=== PATIENT | male | born 1930 ===

== ENCOUNTER 2016-12-31 14:12 | Inpatient (IN) | payer MEDICARE, OTHER ==
--- NOTE | 2016-12-31 14:44 | ED PDOC ---
Lower Extremity Pain/Injury Time Seen by Provider: 12/31/16 14:21 Chief Complaint (Nursing): Lower Extremity Problem/Injury Chief Complaint (Provider): Left foot pain History Per: Family History/Exam Limitations: other (ltd history from patient due to dementia, hx provided by daughter) Onset/Duration Of Symptoms: Persistent (1 month) Current Symptoms Are (Timing): Still Present Severity: Severe Additional History Per: Family Additional Complaint(s): The pt is a 86yo male, PMHx of CAD with CABG, DM, HTN, hypercholesterolemia, dementia, peripheral vascular disease, sent to the ED by Dr. Armani Navarrete for evaluation of infection and gangrene present on left foot for the past month. Pt is accompanied by his and daughter at bedside who serve as historians. Per pt's daughter, he has had an infection leading to gangrene of his left great toe and is currently on an Augmentin regimen. Daughter denies any fever or chills, offers no additional medical complaints. State Fire Marshal: Dr. Armani Navarrete PCP: Dr. Johnson Past Medical History Reviewed: Historical Data, Nursing Documentation, Vital Signs Vital Signs: Last Vital Signs Temp 98.5 F 12/31/16 14:14 Pulse 98 H 12/31/16 14:14 Resp 20 12/31/16 14:14 BP 128/78 12/31/16 14:14 Pulse Ox 98 12/31/16 14:14 - Medical History PMH: Alzheimer's Disease, Anemia, Diabetes, HTN, Hypercholesterolemia, Malignancy (prostate cancer), Osteoporosis, Parkinson's Disease Denies: Chronic Kidney Disease - Surgical History Surgical History: CABG - Family History Family History: States: Unknown Family Hx - Living Arrangements Living Arrangements: With Family - Immunization History Hx Tetanus Toxoid Vaccination: No Hx Influenza Vaccination: No Hx Pneumococcal Vaccination: No - Home Medications Home Medications: Ambulatory Orders Medication Instructions Recorded Donepezil HCl [Aricept Odt] 10 mg PO DAILY 06/30/14 Metformin HCl [Metformin HCl] 1,000 mg PO BID 06/30/14 Sitagliptin Phosphate [Januvia] 100 mg PO DAILY 06/30/14 Metoprolol Tartrate [Lopressor] 50 mg PO DAILY #0 tab 06/14/15 Cilostazol [Pletal] 100 mg PO BID 10/07/16 Clopidogrel [Plavix] 75 mg PO DAILY 10/07/16 Valsartan [Diovan] 160 mg PO DAILY 10/07/16 glyBURIDE [Glyburide] 5 mg PO DAILY 10/07/16 Amoxicillin/Clavulanate [Augmentin 875 mg PO BID 12/31/16 875 MG-125 MG Tab] Memantine [Namenda] 28 mg PO DAILY 12/31/16 - Allergies Allergies/Adverse Reactions: Allergies Allergy/AdvReac Type Severity Reaction Status Date / Time No Known Allergies Allergy Verified 12/31/16 14:17 Review of Systems ROS Statement: Except As Marked, All Systems Reviewed And Found Negative Constitutional: Negative for: Fever, Chills Musculoskeletal: Positive for: Foot Pain (left foot infection in great toe) Physical Exam - Reviewed Nursing Documentation Reviewed: Yes Vital Signs Reviewed: Yes - Physical Exam Appears: Positive for: Well, Non-toxic, No Acute Distress Head Exam: Positive for: ATRAUMATIC, NORMAL INSPECTION, NORMOCEPHALIC Skin: Positive for: Normal Color Cardiovascular/Chest: Positive for: Regular Rate, Rhythm Respiratory: Positive for: Normal Breath Sounds. Negative for: Respiratory Distress Gastrointestinal/Abdominal: Positive for: Soft. Negative for: Tenderness Extremity: Positive for: Swelling (swelling and erythema with discharge noted around left great toe.), Other (dried gangrene in left great toe with mild foul odor.) Neurologic/Psych: Positive for: Alert, Oriented (x2) - Laboratory Results Result Diagrams: 12/31/16 15:00 12/31/16 15:00 - ECG O2 Sat by Pulse Oximetry: 98 (RA) Pulse Ox Interpretation: Normal - Physician Consult Information Time Consulting Physican Contacted: 17:00 Physician Contacted: Damian Shafer Medical Decision Making Medical Decision Making: Time: 1444 Impression: Dried gangrene of left great toe; cellulitis of left foot r/o osteomyelitis Plan: -- Podiatry consult -- CMP -- Troponin -- Blood culture -- Wound culture -- XR Left foot -- reassess Time: 1515 Podiatry resident saw pt and discussed case with Dr. Navarrete who recommends admission. Pt to be admitted under Dr. William. Will order vancomycin and zosyn. Time: [address] William who is aware. Scribe Attestation: Documented by Vivien Calvin acting as a scribe for Omega Martínez MD. Provider Attestation: All medical record entries made by the Alexandraibe were at my direction and personally dictated by me. I have reviewed the chart and agree that the record accurately reflects my personal performance of the history, physical exam, medical decision making, and the department course for this patient. I have also personally directed, reviewed, and agree with the discharge instructions and disposition. Disposition - Clinical Impression Clinical Impression: Cellulitis of foot, left, Gangrene of toe of left foot, Elevated troponin - Patient ED Disposition Is Patient to be Admitted: Yes Discussed With DrReinier: Tavares William Doctor Will See Patient In The: Hospital Counseled Patient/Family Regarding: Studies Performed, Diagnosis, Need For Followup - Disposition Disposition Time: 15:00 Condition: FAIR - Pt Status Changed To: Hospital Disposition Of: Inpatient - Admit Certification Admit to Inpatient:: After my assessment, the patient will require hospitalization for at least two midnights. This is because of the severity of symptoms shown, intensity of services needed, and/or the medical risk in this patient being treated as an outpatient. - POA Present On Arrival: Poor Glycemic Control, Pressure Ulcer
[2016-12-31] MEDS ORDERED: Piperacillin/Tazobact 3.375 GM in Sodium Chloride 0.9% 100 ML IVPB STA (15:16)
[2016-12-31 15:32] LABS: BASO % 0.4 % (0.0-2.0); EOS % 0.4 % (0.0-4.0); HEMATOCRIT 36.1 % (35.0-51.0); LYMPH # 1.3 K/uL (1.0-4.3); LYMPH % 12.2 % (20.0-40.0); MEAN CELL VOLUME 81.6 fl (80.0-94.0); MEAN CORPUSCULAR HGB CONC 31.9 g/dL (33.0-37.0); MEAN PLATELET VOLUME 8.9 fl (7.2-11.7); MONO # 0.7 K/uL (0.0-0.8); MONO % 6.2 % (0.0-10.0); NEUT # 8.9 K/uL (1.8-7.0); NEUT % 80.8 % (50.0-75.0); RED CELL DISTRIBUTION WIDTH 15.1 % (11.5-14.5)
[2016-12-31 15:36] LABS: ALKALINE PHOSPHATASE 109 U/L (38-126); ALT/SGPT 28 U/L (21-72); AST/SGOT 23 U/L (17-59); BILIRUBIN,TOTAL 0.7 mg/dl (0.2-1.3); BLOOD UREA NITROGEN 20 mg/dl (9-20); CALCIUM 9.1 mg/dL (8.4-10.2); CARBON DIOXIDE 24 mmol/L (22-30); CHLORIDE 101 mmol/L (98-107); GFR AFRICAN-AMERICAN > 60; GLUCOSE,RANDOM 179 mg/dL (75-110); POTASSIUM 4.1 MMOL/L (3.6-5.0); SODIUM 136 mmol/l (132-148); TOTAL PROTEIN 7.1 G/DL (6.3-8.2)
--- NOTE | 2016-12-31 15:53 | CP.PCM.CON ---
History of Present Illness - History of Present Illness History of Present Illness: Podiatry consult note- Dr. Navarrete 86 year old male with PMHx of DMII, PVD, HTN, hypercholesterolemia, alzheimers , malignancy, osteoporosis and parkinson's, sent to the ED from Dr. Navarrete's office for gangrenous left hallux with cellulitis. The patient recently had angioplasty done in the left leg. His hallux has been gangrenous for about the past month, patient has been taking Augmentin. Patient is accompanied by his and daughter in the ED. Past Patient History - Infectious Disease Hx of Infectious Diseases: None - Past Medical History & Family History Past Medical History?: Yes - Past Social History Smoking Status: Never Smoked - CARDIAC Hx Hypercholesterolemia: Yes Hx Hypertension: Yes - PULMONARY Hx Respiratory Disorders: No - NEUROLOGICAL Hx Alzheimer's Disease: Yes Hx Parkinson's Disease: Yes - HEENT Hx HEENT Problems: No - RENAL Hx Chronic Kidney Disease: No - ENDOCRINE/METABOLIC Hx Endocrine Disorders: Yes Hx Diabetes Mellitus Type 2: Yes - HEMATOLOGICAL/ONCOLOGICAL Hx Anemia: Yes - INTEGUMENTARY Hx Dermatological Problems: Yes (GANGRENE LEFT FOOT) - MUSCULOSKELETAL/RHEUMATOLOGICAL Hx Osteoporosis: Yes - GASTROINTESTINAL Hx Gastrointestinal Disorders: Yes HX Swallowing Problems: Yes - GENITOURINARY/GYNECOLOGICAL Hx Genitourinary Disorders: Yes Hx Prostate Cancer: Yes (states gets injections every three months) - PSYCHIATRIC Hx Psychophysiologic Disorder: No Hx Substance Use: No - SURGICAL HISTORY Hx Coronary Artery Bypass Graft: Yes - ANESTHESIA Hx Anesthesia: Yes Hx Anesthesia Reactions: No Hx Malignant Hyperthermia: No Meds Allergies/Adverse Reactions: Allergies Allergy/AdvReac Type Severity Reaction Status Date / Time No Known Allergies Allergy Verified 12/31/16 14:17 - Medications Medications: Current Medications Vancomycin HCl 1 gm/ Sodium (Chloride) 250 mls @ 166.667 mls/hr IVPB STAT STA Stop: 12/31/16 16:45 Piperacillin Sod/Tazobactam (Sod 3.375 gm/ Sodium Chloride) 100 mls @ 100 mls/ hr IVPB STAT STA Stop: 12/31/16 16:15 Physical Exam - Additional Findings Additional findings: DERMATOLOGIC: Left hallux is necrotic to the level of the MPJ, with demarcation at the joint level. There is erythema present proximal to the first MTPJ. Ulceration plantarly at the junction of necrotic and healthy skin, with mild serous drainage, there is positive malodor present. Proximal skin is intact. There is no streaking of the erythema at this time. VASCULAR: DP/PT pulses palpable, CORE OVEN TENDER<3 seconds for the lesser digits. There is edema of the left forefoot NEUROLOGIC: Gross sensation intact, protective sensation diminished ORTHOPEDIC: Minimal pain on palpation to the left hallux Results - Vital Signs Recent Vital Signs: Last Vital Signs Temp 98.5 F 12/31/16 14:14 Pulse 98 H 12/31/16 14:14 Resp 20 12/31/16 14:14 BP 128/78 12/31/16 14:14 Pulse Ox 98 12/31/16 15:21 - Labs Result Diagrams: 12/31/16 15:00 12/31/16 15:00 Assessment & Plan - Assessment and Plan (Free Text) Assessment: 86 year old male with gangrene and cellulitis of the left hallux Plan: Patient seen and evaluated, d/w attending Dr. Navarrete. Patients left hallux dressed with betadine telfa, DSD Wound culture taken X-rays ordered Pt started on IV vancomycin, Zosyn Patient to be admitted and will require left hallux amputation, medical and cardiac clearance appreciated Podiatry will continue to follow
--- NOTE | 2016-12-31 15:56 | RAD ---
Left foot History: Left toe pain. Technique: Suboptimal positioning of the patient severely limiting evaluation. Three views of the left foot. Findings: Extensive osteopenia. No definite fracture. Vascular calcifications. Mild hammertoe deformities of the 2nd through 5th digits and hallux valgus. Plantar spurs. Impression: Suboptimal imaging for subtle fractures. Other findings as above.
--- NOTE | 2016-12-31 16:09 | RAD ---
HISTORY: chest pain COMPARISON: No prior. FINDINGS: LUNGS: Increased pulmonary vascular congestion. Questionable effusion on the left. Otherwise suboptimal evaluation due to patient positioning. Left apex not imaged. PLEURA: Biapical pleural parenchymal thickening noted. CARDIOVASCULAR: Enlarged heart. OSSEOUS STRUCTURES: The osseous structures demonstrate degenerative changes. VISUALIZED UPPER ABDOMEN: Upper abdomen is suboptimally evaluated. OTHER FINDINGS: Midline sternotomy wires and surgical clips along the left heart border noted. IMPRESSION: Suboptimal evaluation. Findings as above.
[2016-12-31 16:25] LABS: PARTIAL THROMBOPLASTIN TIME 29.4 Seconds (25.6-37.1)
[2016-12-31] MEDS ORDERED: Piperacillin/Tazobact 3.375 gm Inj IVPB ONE (19:45)
[2016-12-31] MEDS ORDERED: Pneumococcal 23-Valent Vaccine IM ONE (23:42)
[2017-01-01] MEDS: Piperacillin/Tazobact 3.375 GM in Sodium Chloride 0.9% 100 ML IVPB SCH ×3 (01:41→16:09)
--- NOTE | 2017-01-01 08:19 | CP.PCM.CON ---
History of Present Illness - History of Present Illness History of Present Illness: 86 year old male with PMHx of DMII, PVD, HTN, hypercholesterolemia, alzheimers, malignancy, osteoporosis and parkinson's, sent to the ED from Dr. Navarrete's office for gangrenous left hallux with cellulitis. The patient recently had angioplasty done in the left leg. His hallux has been gangrenous for about the past month, patient has been taking Augmentin. Pt has Dementia / Hx taken from the chart He has 1 positive troponin the second is negative Most likely secondary to Gangrene EKG: normal Past Patient History - Infectious Disease Hx of Infectious Diseases: None - Past Medical History & Family History Past Medical History?: Yes - Past Social History Smoking Status: Never Smoked - CARDIAC Hx Cardiac Disorders: Yes - PULMONARY Hx Respiratory Disorders: No - NEUROLOGICAL Hx Neurological Disorder: Yes - HEENT Hx HEENT Problems: No - RENAL Hx Chronic Kidney Disease: No - ENDOCRINE/METABOLIC Hx Endocrine Disorders: Yes - HEMATOLOGICAL/ONCOLOGICAL Hx Blood Disorders: Yes - INTEGUMENTARY Hx Dermatological Problems: Yes (GANGRENE LEFT FOOT) - MUSCULOSKELETAL/RHEUMATOLOGICAL Hx Falls: No - GASTROINTESTINAL Hx Gastrointestinal Disorders: Yes HX Swallowing Problems: Yes - GENITOURINARY/GYNECOLOGICAL Hx Genitourinary Disorders: Yes - PSYCHIATRIC Hx Substance Use: No - SURGICAL HISTORY Hx Coronary Artery Bypass Graft: Yes - ANESTHESIA Hx Anesthesia: Yes Hx Anesthesia Reactions: No Hx Malignant Hyperthermia: No Meds Allergies/Adverse Reactions: Allergies Allergy/AdvReac Type Severity Reaction Status Date / Time No Known Allergies Allergy Verified 12/31/16 14:17 - Medications Medications: Current Medications Cilostazol (Pletal) 100 mg PO BID [facility] Clopidogrel Bisulfate (Plavix) 75 mg PO DAILY [facility] Donepezil HCl (Aricept Odt) 10 mg PO DAILY [facility] Enoxaparin Sodium (Lovenox) 40 mg SC DAILY [facility] PRN Reason: Protocol Glyburide (Micronase) 5 mg PO DAILY [facility] Piperacillin Sod/Tazobactam (Sod 3.375 gm/ Sodium Chloride) 100 mls @ 100 mls/ hr IVPB Q8 [facility] Last Admin: 01/01/17 01:41 Dose: 100 mls/hr Vancomycin HCl 1 gm/ Sodium (Chloride) 250 mls @ 166.667 mls/hr IVPB DAILY [facility] Memantine (Namenda) 28 mg PO DAILY [facility] Metformin HCl (Glucophage) 1,000 mg PO BID [facility] Metoprolol Tartrate (Lopressor) 50 mg PO DAILY [facility] Sitagliptin Phosphate (Januvia) 100 mg PO DAILY [facility] Valsartan (Diovan) 160 mg PO DAILY [facility] Physical Exam - Head Exam Head Exam: NORMAL INSPECTION - Eye Exam Eye Exam: Normal appearance Pupil Exam: NORMAL ACCOMODATION - ENT Exam ENT Exam: Normal Exam - Neck Exam Neck exam: Positive for: Normal Inspection - Respiratory Exam Respiratory Exam: NORMAL BREATHING PATTERN - Cardiovascular Exam Cardiovascular Exam: REGULAR RHYTHM - GI/Abdominal Exam GI & Abdominal Exam: Normal Bowel Sounds Results - Vital Signs Recent Vital Signs: Last Vital Signs Temp 97.9 F 01/01/17 07:56 Pulse 76 01/01/17 07:56 Resp 18 01/01/17 07:56 BP 111/57 L 01/01/17 07:56 Pulse Ox 97 01/01/17 07:56 - Labs Result Diagrams: 12/31/16 15:00 12/31/16 15:00 Labs: Laboratory Results - last 24 hr 12/31/16 01/01/17 23:35 05:12 POC Glucose (mg/dL) 138 H Troponin I 0.0930 Assessment & Plan (1) Elevated troponin Assessment and Plan: I feel the elevated troponin is secondary to the gangrene He is cleared for surgery Status: Acute (2) Gangrene of toe of left foot Status: Acute
[2017-01-01 08:26] LABS: HEMATOCRIT 32.8 % (35.0-51.0); MEAN CELL VOLUME 81.3 fl (80.0-94.0); MEAN CORPUSCULAR HEMOGLOBIN 26.5 pg (27.0-31.0); MEAN CORPUSCULAR HGB CONC 32.6 g/dL (33.0-37.0); RED CELL DISTRIBUTION WIDTH 15.1 % (11.5-14.5); WHITE BLOOD COUNT 9.1 K/uL (4.8-10.8)
[2017-01-01 08:29] LABS: ALB/GLOB RATIO 0.9 (1.0-2.1); ALKALINE PHOSPHATASE 86 U/L (38-126); ALT/SGPT 27 U/L (21-72); AST/SGOT 21 U/L (17-59); BILIRUBIN,TOTAL 0.7 mg/dl (0.2-1.3); BLOOD UREA NITROGEN 17 mg/dl (9-20); CALCIUM 8.3 mg/dL (8.4-10.2); CARBON DIOXIDE 24 mmol/L (22-30); CHLORIDE 105 mmol/L (98-107); CHOLESTEROL 111 mg/dL (0-199); GFR AFRICAN-AMERICAN > 60; GLUCOSE,RANDOM 123 mg/dL (75-110); POTASSIUM 3.8 MMOL/L (3.6-5.0); SODIUM 136 mmol/l (132-148); TOTAL PROTEIN 6.2 G/DL (6.3-8.2)
[2017-01-01 08:58] LABS: THYROID STIMULATING HORMONE 2.59 mIU/ML (0.46-4.68)
[2017-01-01] MEDS: Cilostazol 100 mg Tab UD PO SCH ×2 (09:16→16:09)
[2017-01-01] MEDS: Enoxaparin 40 mg Syringe SC SCH (09:16)
[2017-01-01] MEDS: Donepezil HCl 10 MG ODT PO SCH (09:18)
[2017-01-01] MEDS ORDERED: Povidone Iodine Topical 10% Sol ONE (11:57)
--- NOTE | 2017-01-01 13:24 | CP.PCM.PN ---
Subjective - Date & Time of Evaluation Date of Evaluation: 01/01/17 Time of Evaluation: 13:23 - Subjective Subjective: Patient seen and evaluated at bedside, NAD. Patient resting comfortably, no complaints at this time. Bandage is removed from the left foot. Cellulitis improved from yesterday. Objective - Vital Signs/Intake and Output Vital Signs (last 24 hours): Temp Pulse Resp BP Pulse Ox 97.8 F 54 L 18 105/57 L 98 01/01/17 12:18 01/01/17 12:18 01/01/17 12:18 01/01/17 12:18 01/01/17 12:18 - Medications Medications: Current Medications Cilostazol (Pletal) 100 mg PO BID [facility] Last Admin: 01/01/17 09:16 Dose: 100 mg Clopidogrel Bisulfate (Plavix) 75 mg PO DAILY [facility] Last Admin: 01/01/17 09:16 Dose: 75 mg Donepezil HCl (Aricept Odt) 10 mg PO DAILY [facility] Last Admin: 01/01/17 09:18 Dose: 10 mg Enoxaparin Sodium (Lovenox) 40 mg SC DAILY [facility] PRN Reason: Protocol Last Admin: 01/01/17 09:16 Dose: 40 mg Glyburide (Micronase) 5 mg PO DAILY [facility] Last Admin: 01/01/17 10:31 Dose: 5 mg Piperacillin Sod/Tazobactam (Sod 3.375 gm/ Sodium Chloride) 100 mls @ 100 mls/ hr IVPB Q8 [facility] Last Admin: 01/01/17 09:14 Dose: 100 mls/hr Vancomycin HCl 1 gm/ Sodium (Chloride) 250 mls @ 166.667 mls/hr IVPB DAILY [facility] Last Admin: 01/01/17 09:15 Dose: 166.667 mls/hr Memantine (Namenda) 28 mg PO DAILY [facility] Metformin HCl (Glucophage) 1,000 mg PO BID [facility] Last Admin: 01/01/17 09:16 Dose: 1,000 mg Metoprolol Tartrate (Lopressor) 50 mg PO DAILY [facility] Last Admin: 01/01/17 09:17 Dose: 50 mg Sitagliptin Phosphate (Januvia) 100 mg PO DAILY [facility] Last Admin: 01/01/17 09:17 Dose: 100 mg Valsartan (Diovan) 160 mg PO DAILY [facility] Last Admin: 01/01/17 09:18 Dose: 160 mg - Labs Labs: 01/01/17 06:30 01/01/17 06:30 PT 13.9 Seconds (9.8-13.1) H 12/31/16 15:00 INR 1.2 (0.9-1.2) 12/31/16 15:00 APTT 29.4 Seconds (25.6-37.1) 12/31/16 15:00 - Constitutional Appears: Well, Non-toxic, No Acute Distress - Neurological Exam Neurological Exam: Awake - Additional Findings Additional findings: DERMATOLOGIC: Left hallux is necrotic to the level of the MPJ, with demarcation at the joint level. There is decreased present proximal to the first MTPJ. Ulceration plantarly at the junction of necrotic and healthy skin, with mild serous drainage, there is positive malodor present. Proximal skin is intact. There is no streaking of the erythema at this time. VASCULAR: DP/PT pulses palpable, FIREPROOF DOOR ASSEMBLER<3 seconds for the lesser digits. There is edema of the left forefoot NEUROLOGIC: Gross sensation intact, protective sensation diminished ORTHOPEDIC: Minimal pain on palpation to the left hallux Assessment and Plan - Assessment and Plan (Free Text) Assessment: 86 year old male with left hallux gangrene and cellulitis. Plan: Patient seen and evaluated, d/w attending Dr. Navarrete. Left foot dressed with betadine adaptic, DSD Patient will go to OR for left hallux amputation later this week Will hold plavix and Lovenox prior to procedure Cardiology clearance appreciated Podiatry will continue to follow
--- NOTE | 2017-01-01 14:43 | CARD ---
APPROVED REPORT EKG Measurement Heart [id number] <Conclusion> Normal sinus rhythm Nonspecific T wave abnormality Prolonged QT Abnormal ECG
[2017-01-02] MEDS: Piperacillin/Tazobact 3.375 GM in Sodium Chloride 0.9% 100 ML IVPB SCH ×3 (00:31→16:55)
--- NOTE | 2017-01-02 06:35 | CP.PCM.PN ---
Subjective - Date & Time of Evaluation Date of Evaluation: 01/02/17 Time of Evaluation: 06:35 - Subjective Subjective: Patient seen and evaluated at bedside, NAD. Patient resting comfortably, no complaints at this time. Bandage is removed from the left foot. Cellulitis improved from yesterday. Objective - Vital Signs/Intake and Output Vital Signs (last 24 hours): Temp Pulse Resp BP Pulse Ox 99 F 72 19 122/61 99 01/02/17 04:41 01/02/17 04:41 01/02/17 04:41 01/02/17 04:41 01/02/17 04:41 Intake and Output: 01/01/17 01/02/17 18:59 06:59 Intake Total 300 Balance 300 - Medications Medications: Current Medications Cilostazol (Pletal) 100 mg PO BID [facility] Last Admin: 01/01/17 16:09 Dose: 100 mg Clopidogrel Bisulfate (Plavix) 75 mg PO DAILY [facility] Last Admin: 01/01/17 09:16 Dose: 75 mg Donepezil HCl (Aricept Odt) 10 mg PO DAILY [facility] Last Admin: 01/01/17 09:18 Dose: 10 mg Enoxaparin Sodium (Lovenox) 40 mg SC DAILY [facility] PRN Reason: Protocol Last Admin: 01/01/17 09:16 Dose: 40 mg Glyburide (Micronase) 5 mg PO DAILY [facility] Last Admin: 01/01/17 10:31 Dose: 5 mg Piperacillin Sod/Tazobactam (Sod 3.375 gm/ Sodium Chloride) 100 mls @ 100 mls/ hr IVPB Q8 [facility] Last Admin: 01/02/17 00:31 Dose: 100 mls/hr Vancomycin HCl 1 gm/ Sodium (Chloride) 250 mls @ 166.667 mls/hr IVPB DAILY [facility] Last Admin: 01/01/17 09:15 Dose: 166.667 mls/hr Memantine (Namenda) 28 mg PO DAILY [facility] Metformin HCl (Glucophage) 1,000 mg PO BID [facility] Last Admin: 01/01/17 16:09 Dose: 1,000 mg Metoprolol Tartrate (Lopressor) 50 mg PO DAILY [facility] Last Admin: 01/01/17 09:17 Dose: 50 mg Sitagliptin Phosphate (Januvia) 100 mg PO DAILY [facility] Last Admin: 06/04/17 09:17 Dose: 100 mg Valsartan (Diovan) 160 mg PO DAILY [facility] Last Admin: 01/01/17 09:18 Dose: 160 mg - Labs Labs: 01/01/17 06:30 01/01/17 06:30 PT 13.9 Seconds (9.8-13.1) H 12/31/16 15:00 INR 1.2 (0.9-1.2) 12/31/16 15:00 APTT 29.4 Seconds (25.6-37.1) 12/31/16 15:00 - Constitutional Appears: Well, Non-toxic, No Acute Distress - Extremities Exam Additional comments: DERMATOLOGIC: Left hallux is necrotic to the level of the MPJ, with demarcation at the joint level. There is decreased present proximal to the first MTPJ. Ulceration plantarly at the junction of necrotic and healthy skin, with mild serous drainage, there is positive malodor present. Proximal skin is intact. There is no streaking of the erythema at this time. VASCULAR: DP/PT pulses palpable, METAL CHECKER<3 seconds for the lesser digits. There is edema of the left forefoot NEUROLOGIC: Gross sensation intact, protective sensation diminished ORTHOPEDIC: Minimal pain on palpation to the left hallux - Neurological Exam Neurological Exam: Alert, Awake, Oriented x3 - Psychiatric Exam Psychiatric exam: Normal Affect, Normal Mood Assessment and Plan - Assessment and Plan (Free Text) Assessment: 86 year old male with left hallux gangrene and cellulitis. Plan: Patient seen and evaluated, seen with attending Dr. Navarrete. Left foot dressed with DSD Patient will go to OR for left hallux amputation later this week hold plavix and Lovenox prior to procedure Cardiology clearance appreciated Podiatry will continue to follow
[2017-01-02] MEDS: Cilostazol 100 mg Tab UD PO SCH ×2 (09:21→16:53)
[2017-01-02] MEDS: Donepezil HCl 10 MG ODT PO SCH (09:22)
--- NOTE | 2017-01-02 11:22 | CP.PCM.CON ---
History of Present Illness - History of Present Illness History of Present Illness: 86 year old male with PMHx of DMII, PVD, HTN, hypercholesterolemia, alzheimers , malignancy, osteoporosis and parkinson's, sent to the ED from Dr. Navarrete's office for gangrenous left hallux with cellulitis. The patient recently had angioplasty done in the left leg. His hallux has been gangrenous for about the past month, patient has been taking Augmentin. Patient is accompanied by his and daughter in the ED. left hallux black some cellulitis of forefoot alert but confused nad Review of Systems - Review of Systems Systems not reviewed;Unavailable: Altered Mental Status - Constitutional Constitutional: absent: As Per HPI, Anorexia, Chills, Daytime Sleepiness, Excessive Sweating, Fatigue, Fever, Frequent Falls, Headache, Increased Appetite , Lethargy, Malaise, Night Sweats, Snoring, Sleep Apnea, Weight Gain, Weight Loss, Weakness, Other - EENT Eyes: absent: As Per HPI, Blind Spots, Blurred Vision, Change in Vision, Decreased Night Vision, Diplopia, Discharge, Dry Eye, Exophthalmos, Floaters, Irritation, Itchy Eyes, Loss of Peripheral Vision, Pain, Photophobia, Requires Corrective Lenses, Sees Flashes, Spots in Vision, Tunnel Vision, Other Visual Disturbances, Loss of Vision, Other Ears: absent: As Per HPI, Decreased Hearing, Ear Discharge, Ear Pain, Tinnitus, Abnormal Hearing, Disequilibrium, Dizziness, Other Nose/Mouth/Throat: absent: As Per HPI, Epistaxis, Nasal Congestion, Nasal Discharge, Nasal Obstruction, Nasal Trauma, Nose Pain, Post Nasal Drip, Sinus Pain, Sinus Pressure, Bleeding Gums, Change in Voice, Dental Pain, Dry Mouth, Dysphagia, Halitosis, Hoarsness, Lip Swelling, Mouth Lesions, Mouth Pain, Odynophagia, Sore Throat, Throat Swelling, Tongue Swelling, Facial Pain, Neck Pain, Neck Mass, Other - Cardiovascular Cardiovascular: absent: As Per HPI, Acrocyanosis, Chest Pain, Chest Pain at Rest , Chest Pain with Activity, Claudication, Diaphoresis, Dyspnea, Dyspnea on Exertion, Edema, Irregular Heart Rhythm, Pain Radiating to Arm/Neck/Jaw, Leg Edema, Leg Ulcers, Lightheadedness, Orthopnea, Palpitations, Paroxysmal Nocturnal Dyspnea, Pedal Edema, Radiating Pain, Rapid Heart Rate, Slow Heart Rate, Syncope, Other - Respiratory Respiratory: absent: As Per HPI, Cough, Dyspnea, Hemoptysis, Dyspnea on Exertion , Wheezing, Snoring, Stridor, Pain on Inspiration, Chest Congestion, Excessive Mucous Production, Change in Mucous Color, Pain with Coughing, Other - Gastrointestinal Gastrointestinal: absent: As Per HPI, Abdominal Pain, Belching, Bloating, Change in Bowel Habits, Change in Stool Character, Coffee Ground Emesis, Constipation, Cramping, Diarrhea, Dyspepsia, Dysphagia, Early Satiety, Excessive Flatus, Fecal Incontinence, Heartburn, Hematemesis, Hematochezia, Loose Stools, Melena, Nausea, Odynophagia, Temesmus, Vomiting, Other - Genitourinary Genitourinary: absent: As Per HPI, Change in Urinary Stream, Difficulty Urinating, Dysuria, Flank Pain, Hematuria, Pyuria, Nocturia, Urinary Incontinence, Urinary Frequency, Urinary Hesitance, Urinary Urgency, Voiding Freq/Small Amts, Freq UTI, Hx Renal/Bladder Calculi, Hx /Renal Surgery, Bladder Distension, Other - Reproductive: Male Reproductive:Male: As Per HPI - Musculoskeletal Musculoskeletal: As Per HPI - Integumentary Integumentary: As Per HPI - Neurological Neurological: absent: As Per HPI, Abnormal Gait, Abnormal Hearing, Abnormal Movements, Abnormal Speech, Behavioral Changes, Burning Sensations, Confusion, Convulsions, Disequilibrium, Dizziness, Numbness, Focal Weakness, Frequent Falls , Headaches, Lack of Coordination, Loss of Vision, Memory Loss, Paresthesias, Radicular Pain, Restless Legs, Sensory Deficit, Syncope, Tingling, Tremor, Vertigo, Weakness, Other Visual Disturbances, Other - Psychiatric Psychiatric: absent: As Per HPI, Abnormal Sleep Pattern, Anhedonia, Anxiety, Auditory Hallucinations, Behavioral Changes, Change in Appetite, Change in Libido, Confusion, Depression, Difficulty Concentrating, Hallucinations, Homicidal Ideation, Hopelessness, Irritability, Memory Loss, Mood Swings, Panic Attacks, Paranoia, Suicidal Ideation, Visual Hallucinations, Tactile Hallucinations, Other - Endocrine Endocrine: absent: As Per HPI, Change in Body Appearance, Change in Libido, Cold Intolorance, Deepening of Voice, Excessive Sweating, Fatigue, Flushing, Heat Intolorance, Increase in Ring/Shoe/Hat Size, Palpitations, Polydipsia, Polyphagia, Polyuria, Other - Hematologic/Lymphatic Hematologic: absent: As Per HPI, Easy Bleeding, Easy Bruising, Lymphadenopathy, Other Past Patient History - Infectious Disease Hx of Infectious Diseases: None - Past Medical History & Family History Past Medical History?: Yes - Past Social History Smoking Status: Never Smoked - CARDIAC Hx Cardiac Disorders: Yes - PULMONARY Hx Respiratory Disorders: No - NEUROLOGICAL Hx Neurological Disorder: Yes - HEENT Hx HEENT Problems: No - RENAL Hx Chronic Kidney Disease: No - ENDOCRINE/METABOLIC Hx Endocrine Disorders: Yes - HEMATOLOGICAL/ONCOLOGICAL Hx Blood Disorders: Yes - INTEGUMENTARY Hx Dermatological Problems: Yes (GANGRENE LEFT FOOT) - MUSCULOSKELETAL/RHEUMATOLOGICAL Hx Falls: No - GASTROINTESTINAL Hx Gastrointestinal Disorders: Yes HX Swallowing Problems: Yes - GENITOURINARY/GYNECOLOGICAL Hx Genitourinary Disorders: Yes - PSYCHIATRIC Hx Substance Use: No - SURGICAL HISTORY Hx Coronary Artery Bypass Graft: Yes - ANESTHESIA Hx Anesthesia: Yes Hx Anesthesia Reactions: No Hx Malignant Hyperthermia: No Meds Allergies/Adverse Reactions: Allergies Allergy/AdvReac Type Severity Reaction Status Date / Time No Known Allergies Allergy Verified 12/31/16 14:17 - Medications Medications: Current Medications Acetaminophen (Tylenol 325mg Tab) 650 mg PO Q6 PRN PRN Reason: Pain, Mild (1-3) Last Admin: 01/02/17 10:12 Dose: 650 mg Cilostazol (Pletal) 100 mg PO BID [facility] Last Admin: 01/02/17 09:21 Dose: 100 mg Clopidogrel Bisulfate (Plavix) 75 mg PO DAILY [facility] Last Admin: 01/01/17 09:16 Dose: 75 mg Donepezil HCl (Aricept Odt) 10 mg PO DAILY [facility] Last Admin: 01/02/17 09:22 Dose: 10 mg Enoxaparin Sodium (Lovenox) 40 mg SC DAILY [facility] PRN Reason: Protocol Last Admin: 01/01/17 09:16 Dose: 40 mg Glyburide (Micronase) 5 mg PO DAILY [facility] Last Admin: 01/02/17 09:22 Dose: 5 mg Piperacillin Sod/Tazobactam (Sod 3.375 gm/ Sodium Chloride) 100 mls @ 100 mls/ hr IVPB Q8 [facility] Last Admin: 01/02/17 09:23 Dose: 100 mls/hr Vancomycin HCl 1 gm/ Sodium (Chloride) 250 mls @ 166.667 mls/hr IVPB DAILY [facility] Last Admin: 01/02/17 09:23 Dose: 166.667 mls/hr Memantine (Namenda) 10 mg PO BID [facility] Last Admin: 01/02/17 10:13 Dose: 10 mg Metformin HCl (Glucophage) 1,000 mg PO BID [facility] Last Admin: 01/02/17 09:21 Dose: 1,000 mg Metoprolol Tartrate (Lopressor) 50 mg PO DAILY [facility] Last Admin: 01/02/17 09:38 Dose: 50 mg Sitagliptin Phosphate (Januvia) 100 mg PO DAILY [facility] Last Admin: 01/02/17 09:21 Dose: 100 mg Valsartan (Diovan) 160 mg PO DAILY [facility] Last Admin: 01/02/17 09:21 Dose: 160 mg Physical Exam - Constitutional Appears: Non-toxic, Confused, Cachectic, Chronically Ill - Head Exam Head Exam: NORMOCEPHALIC - Eye Exam Eye Exam: PERRL. absent: Scleral icterus - ENT Exam ENT Exam: Mucous Membranes Dry, Normal External Ear Exam - Neck Exam Neck exam: Negative for: Lymphadenopathy - Respiratory Exam Respiratory Exam: Decreased Breath Sounds, Rhonchi - Cardiovascular Exam Cardiovascular Exam: REGULAR RHYTHM, +S1, +S2 - GI/Abdominal Exam GI & Abdominal Exam: Diminished Bowel Sounds, Soft. absent: Tenderness - Rectal Exam Rectal Exam: Deferred - Exam Exam: NORMAL INSPECTION - Extremities Exam Extremities exam: Positive for: pedal edema, tenderness. Negative for: calf tenderness, pedal pulses present - Back Exam Back exam: absent: CVA tenderness (L), CVA tenderness (R) - Neurological Exam Neurological exam: Altered, CN II-XII Intact - Psychiatric Exam Psychiatric exam: Depressed - Skin Skin Exam: Dry Results - Vital Signs Recent Vital Signs: Last Vital Signs Temp 97.3 F L 01/02/17 08:01 Pulse 92 H 01/02/17 09:38 Resp 16 01/02/17 08:01 BP 126/63 01/02/17 09:38 Pulse Ox 98 01/02/17 08:01 - Labs Result Diagrams: 01/01/17 06:30 01/01/17 06:30 Labs: Laboratory Results - last 24 hr 01/01/17 01/01/17 01/01/17 06:30 11:15 16:05 POC Glucose (mg/dL) 176 H 105 Hemoglobin A1c 6.5 01/01/17 01/02/17 21:10 05:07 POC Glucose (mg/dL) 104 83 Hemoglobin A1c Assessment & Plan - Assessment and Plan (Free Text) Plan: dry gangrene secondary cellulitis need vascular follow up may need BKA ? cont iv rx
--- NOTE | 2017-01-02 12:53 | CP.PCM.HP ---
History of Present Illness - History of Present Illness History of Present Illness: This is an 86 y/o male with dementia , HTN, DM 2 osteoporosis was admitted for gangrene and cellulitis of the left hallux. he has been on Augmentin for awhile but to no avail. He was seen at the [facility] office and advised hospitalization he recently had an angioplasty of the left leg. there was no fever. Present on Admission - Present on Admission Any Indicators Present on Admission: No History of DVT/PE: No History of Uncontrolled Diabetes: Yes Urinary Catheter: No Decubitus Ulcer Present: No Review of Systems - Musculoskeletal Additional comments: pain on the right foot. Past Patient History - Infectious Disease Hx of Infectious Diseases: None - Past Medical History & Family History Past Medical History?: Yes - Past Social History Smoking Status: Never Smoked - CARDIAC Hx Cardiac Disorders: Yes - PULMONARY Hx Respiratory Disorders: No - NEUROLOGICAL Hx Neurological Disorder: Yes - HEENT Hx HEENT Problems: No - RENAL Hx Chronic Kidney Disease: No - ENDOCRINE/METABOLIC Hx Endocrine Disorders: Yes - HEMATOLOGICAL/ONCOLOGICAL Hx Blood Disorders: Yes - INTEGUMENTARY Hx Dermatological Problems: Yes (GANGRENE LEFT FOOT) - MUSCULOSKELETAL/RHEUMATOLOGICAL Hx Falls: No - GASTROINTESTINAL Hx Gastrointestinal Disorders: Yes HX Swallowing Problems: Yes - GENITOURINARY/GYNECOLOGICAL Hx Genitourinary Disorders: Yes - PSYCHIATRIC Hx Substance Use: No - SURGICAL HISTORY Hx Coronary Artery Bypass Graft: Yes - ANESTHESIA Hx Anesthesia: Yes Hx Anesthesia Reactions: No Hx Malignant Hyperthermia: No Meds Allergies/Adverse Reactions: Allergies Allergy/AdvReac Type Severity Reaction Status Date / Time No Known Allergies Allergy Verified 12/31/16 14:17 Physical Exam - Head Exam Head Exam: NORMAL INSPECTION - Eye Exam Eye Exam: Normal appearance - ENT Exam ENT Exam: Mucous Membranes Moist - Respiratory Exam Respiratory Exam: Clear to Auscultation Bilateral - Cardiovascular Exam Cardiovascular Exam: REGULAR RHYTHM - Extremities Exam Additional comments: gangrene of the left hallux - Neurological Exam Neurological exam: Altered, CN II-XII Intact - Skin Skin Exam: Dry Results - Vital Signs Recent Vital Signs: Last Vital Signs Temp 96.4 F L 01/02/17 12:38 Pulse 64 01/02/17 12:38 Resp 18 01/02/17 12:38 BP 101/39 L 01/02/17 12:38 Pulse Ox 97 01/02/17 12:38 - Labs Result Diagrams: 01/01/17 06:30 01/01/17 06:30 Labs: Laboratory Results - last 24 hr 01/01/17 01/01/17 01/01/17 06:30 16:05 21:10 POC Glucose (mg/dL) 105 104 Hemoglobin A1c 6.5 01/02/17 01/02/17 05:07 11:03 POC Glucose (mg/dL) 83 87 Hemoglobin A1c Assessment & Plan (1) Coronary artery disease Status: Acute (2) Cellulitis of foot, left Status: Acute (3) Gangrene of toe of left foot Status: Acute (4) Dementia Status: Chronic (5) Diabetes mellitus Status: Chronic - Assessment and Plan (Free Text) Plan: cont meds follow up with Cardiology re elevated CE reviewed labs Dc Plavix will be off for few days from Plavix before surgery
--- NOTE | 2017-01-02 12:59 | CP.PCM.PN ---
Subjective - Date & Time of Evaluation Date of Evaluation: 01/02/17 Time of Evaluation: 12:59 - Subjective Subjective: patient remains stable On his 2nd day off from Plavix. Has no chest s pain or SOB. Objective - Vital Signs/Intake and Output Vital Signs (last 24 hours): Temp Pulse Resp BP Pulse Ox 96.4 F L 64 18 101/39 L 97 01/02/17 12:38 01/02/17 12:38 01/02/17 12:38 01/02/17 12:38 01/02/17 12:38 Intake and Output: 01/02/17 01/02/17 06:59 18:59 Intake Total 100 Output Total 2 Balance 98 - Medications Medications: Current Medications Acetaminophen (Tylenol 325mg Tab) 650 mg PO Q6 PRN PRN Reason: Pain, Mild (1-3) Last Admin: 01/02/17 10:12 Dose: 650 mg Cilostazol (Pletal) 100 mg PO BID [facility] Last Admin: 01/02/17 09:21 Dose: 100 mg Clopidogrel Bisulfate (Plavix) 75 mg PO DAILY [facility] Last Admin: 01/01/17 09:16 Dose: 75 mg Donepezil HCl (Aricept Odt) 10 mg PO DAILY [facility] Last Admin: 01/02/17 09:22 Dose: 10 mg Enoxaparin Sodium (Lovenox) 40 mg SC DAILY [facility] PRN Reason: Protocol Last Admin: 01/01/17 09:16 Dose: 40 mg Glyburide (Micronase) 5 mg PO DAILY [facility] Last Admin: 01/02/17 09:22 Dose: 5 mg Piperacillin Sod/Tazobactam (Sod 3.375 gm/ Sodium Chloride) 100 mls @ 100 mls/ hr IVPB Q8 [facility] Last Admin: 01/02/17 09:23 Dose: 100 mls/hr Vancomycin HCl 1 gm/ Sodium (Chloride) 250 mls @ 166.667 mls/hr IVPB DAILY [facility] Last Admin: 01/02/17 09:23 Dose: 166.667 mls/hr Memantine (Namenda) 10 mg PO BID [facility] Last Admin: 01/02/17 10:13 Dose: 10 mg Metformin HCl (Glucophage) 1,000 mg PO BID [facility] Last Admin: 01/02/17 09:21 Dose: 1,000 mg Metoprolol Tartrate (Lopressor) 50 mg PO DAILY [facility] Last Admin: 01/02/17 09:38 Dose: 50 mg Sitagliptin Phosphate (Januvia) 100 mg PO DAILY [facility] Last Admin: 01/02/17 09:21 Dose: 100 mg Valsartan (Diovan) 160 mg PO DAILY [facility] Last Admin: 01/02/17 09:21 Dose: 160 mg - Labs Labs: 01/01/17 06:30 01/01/17 06:30 PT 13.9 Seconds (9.8-13.1) H 12/31/16 15:00 INR 1.2 (0.9-1.2) 12/31/16 15:00 APTT 29.4 Seconds (25.6-37.1) 12/31/16 15:00 - Head Exam Head Exam: NORMAL INSPECTION - Eye Exam Eye Exam: Normal appearance - ENT Exam ENT Exam: Mucous Membranes Moist - Respiratory Exam Respiratory Exam: Clear to Ausculation Bilateral - Cardiovascular Exam Cardiovascular Exam: REGULAR RHYTHM - GI/Abdominal Exam GI & Abdominal Exam: Normal Bowel Sounds - Neurological Exam Neurological Exam: Altered, CN II-XII Intact Assessment and Plan (1) Coronary artery disease Status: Acute (2) Cellulitis of foot, left Status: Acute (3) Gangrene of toe of left foot Status: Acute (4) Dementia Status: Chronic (5) Diabetes mellitus Status: Chronic - Assessment and Plan (Free Text) Plan: Cont Iv antibiotics contmeds cont tx wound care
[2017-01-02] MEDS ORDERED: Dextrose 50% SYRINGE Inj (50 ml) IV PRN (17:29)
[2017-01-02] MEDS ORDERED: Glucagon Recombinant 1 mg Inj IM PRN (17:29)
[2017-01-02] MEDS ORDERED: Dextrose 5%/0.45% NS 1,000 ML IV SCH (17:30)
[2017-01-03] MEDS: Piperacillin/Tazobact 3.375 GM in Sodium Chloride 0.9% 100 ML IVPB SCH ×3 (01:10→16:58)
[2017-01-03] MEDS: Enoxaparin 40 mg Syringe SC SCH ×2 (08:51→10:54)
[2017-01-03] MEDS: Cilostazol 100 mg Tab UD PO SCH ×2 (08:52→17:00)
[2017-01-03] MEDS: Donepezil HCl 10 MG ODT PO SCH (08:54)
--- NOTE | 2017-01-03 10:00 | CP.PCM.PN ---
Subjective - Date & Time of Evaluation Date of Evaluation: 01/03/17 Time of Evaluation: 09:58 - Subjective Subjective: 86 y/o male seen bedside for left hallux gangrene and cellulitis. Pt is in NAD. Pt is resting comfortably and denies of any overnight events. Objective - Vital Signs/Intake and Output Vital Signs (last 24 hours): Temp Pulse Resp BP Pulse Ox 98.3 F 74 20 100/50 L 99 01/03/17 07:56 01/03/17 08:53 01/03/17 07:56 01/03/17 08:53 01/03/17 07:56 - Medications Medications: Current Medications Acetaminophen (Tylenol 325mg Tab) 650 mg PO Q6 PRN PRN Reason: Pain, Mild (1-3) Last Admin: 01/03/17 09:02 Dose: 650 mg Cilostazol (Pletal) 100 mg PO BID [facility] Last Admin: 01/03/17 08:52 Dose: 100 mg Clopidogrel Bisulfate (Plavix) 75 mg PO DAILY [facility] Last Admin: 01/03/17 08:52 Dose: Not Given Dextrose (Dextrose 50% Inj) 0 ml IV STAT PRN; Protocol PRN Reason: Hyglycemia Protocol Last Admin: 01/02/17 17:56 Dose: 50 ml Dextrose (Glutose 15) 0 gm PO ONCE PRN; Protocol PRN Reason: Hypoglycemia Protocol Donepezil HCl (Aricept Odt) 10 mg PO DAILY [facility] Last Admin: 01/03/17 08:54 Dose: 10 mg Enoxaparin Sodium (Lovenox) 40 mg SC DAILY [facility] PRN Reason: Protocol Last Admin: 01/03/17 08:51 Dose: Not Given Glucagon (Glucagen Diagnostic Kit) 0 mg IM STAT PRN; Protocol PRN Reason: Hypoglycemia Protocol Glyburide (Micronase) 5 mg PO DAILY [facility] Last Admin: 01/03/17 08:53 Dose: 5 mg Piperacillin Sod/Tazobactam (Sod 3.375 gm/ Sodium Chloride) 100 mls @ 100 mls/ hr IVPB Q8 [facility] Last Admin: 01/03/17 08:54 Dose: 100 mls/hr Vancomycin HCl 1 gm/ Sodium (Chloride) 250 mls @ 166.667 mls/hr IVPB DAILY [facility] Last Admin: 01/03/17 08:54 Dose: 166.667 mls/hr Dextrose/Sodium Chloride (Dextrose 5%/0.45% Ns 1000 Ml) 1,000 mls @ 40 mls/hr IV .Q24H [facility] Stop: 01/03/17 17:29 Last Admin: 01/02/17 17:48 Dose: 40 mls/hr Dextrose/Sodium Chloride (Dextrose 5%/0.45% Ns 1000 Ml) 1,000 mls @ 40 mls/hr IV .Q24H [facility] Stop: 01/04/17 09:56 Memantine (Namenda) 10 mg PO BID [facility] Last Admin: 01/03/17 08:53 Dose: 10 mg Metformin HCl (Glucophage) 1,000 mg PO BID [facility] Last Admin: 01/03/17 08:51 Dose: 1,000 mg Metoprolol Tartrate (Lopressor) 50 mg PO DAILY [facility] Last Admin: 01/03/17 08:53 Dose: Not Given Sitagliptin Phosphate (Januvia) 100 mg PO DAILY [facility] Last Admin: 01/03/17 08:53 Dose: 100 mg Tramadol HCl (Ultram) 100 mg PO Q6 PRN PRN Reason: Pain, moderate (4-7) Valsartan (Diovan) 160 mg PO DAILY [facility] Last Admin: 01/03/17 08:53 Dose: Not Given - Labs Labs: 01/01/17 06:30 01/01/17 06:30 PT 13.9 Seconds (9.8-13.1) H 12/31/16 15:00 INR 1.2 (0.9-1.2) 12/31/16 15:00 APTT 29.4 Seconds (25.6-37.1) 12/31/16 15:00 - Constitutional Appears: Well, Non-toxic, No Acute Distress - Extremities Exam Additional comments: Left foot focused exam: VASC: DP/PT pulses are palpable, STONE GANG SAWYER: < 3 sec to lesser digits DERM: Left hallux is necrotic and hyperpigmented, no active drainage, no purulence, mild malodor present, localized erythema noted, no ascending cellulitis noted NEURO: Grossly intact ORTHO: Mild pain on palpation of the left hallux - Neurological Exam Neurological Exam: Altered, Awake, Oriented x3 Assessment and Plan - Assessment and Plan (Free Text) Assessment: 86 y/o male with Left hallux gangrene and localized cellulitis seen bedside Plan: Pt evaluated and chart reviewed Discussed with attending Dr. Navarrete Labs and vitals reviewed Applied DSD to Left foot Continue IV abx Pt to go to OR on 9:45am for L 1st partial ray amputation and bone bx Cardiac and medical optimization appreciated Spoke with daughter Akosua in regards to surgical procedure Verbal consent obtained from the daughter after careful explanation of risks benefits and risks of surgical procedure Podiatry will continue to follow
[2017-01-03] MEDS: Dextrose 5%/0.45% NS 1,000 ML IV SCH ×2 (10:52→21:27)
--- NOTE | 2017-01-03 11:50 | PQF GENQUE ---
Dr. William, In Agreement with the Site(s) of the Pressure Ulcer(s) as listed in the Nurses notes as follows ?: 01/01 Nurses note:medial sacrum; intact skin with non-blanchable redness 01/02 Nurses note:medial sacrum and left hip: intact skin: non-blanchable redness 01/02 Wound RN note: left hip stage 1 Pressure Ulcer OR: Other explanation of clinical finding OR: Unable to determine ER MD note: POA :Present On Arrival: Poor Glycemic Control, Pressure Ulcer This form is a permanent part of the medical record Clarification of your documentation is requested to better reflect the severity of illness and intensity of treatment of your patient. Indicators present [] Specify: [] [] Specify: [] [] Specify: [] [] Specify: [] Location in the medical record that reflects the above clinical findings: [] Treatment Provided: [] PHYSICIAN'S RESPONSE Based on your medical judgment of the clinical indicators outlined above please clarify the following: [] Practitioner response [] If unable to determine, please check the box, sign and date. Present On Admission (POA) Indicator: [] Present at the time of admission [] Not present at the time of admission [] Clinically Undetermined In responding to this query, please exercise your independent professional judgment. The fact that a question is asked does not imply that any particular answer is desired or expected. Thank you for your clarification on this documentation. If you have any questions please call. * Thank you, Danya Hernandez RN BSN ext. #[phone] MTDD
--- NOTE | 2017-01-03 15:14 | CP.PCM.PN ---
<Casper Tierney - Last Filed: 01/03/17 15:11> Subjective - Date & Time of Evaluation Date of Evaluation: 01/03/17 Time of Evaluation: 11:11 - Subjective Subjective: Patient seen and examined at bedside. No acute events overnight. Afebrile. Leukocytosis resolved. Resting comfortably. No complaints of pain. Objective - Vital Signs/Intake and Output Vital Signs (last 24 hours): Temp Pulse Resp BP Pulse Ox 98.1 F 77 20 106/51 L 99 01/03/17 12:00 01/03/17 12:00 01/03/17 12:00 01/03/17 12:00 01/03/17 12:00 - Medications Medications: Current Medications Acetaminophen (Tylenol 325mg Tab) 650 mg PO Q6 PRN PRN Reason: Pain, Mild (1-3) Last Admin: 01/03/17 09:02 Dose: 650 mg Cilostazol (Pletal) 100 mg PO BID [facility] Last Admin: 01/03/17 08:52 Dose: 100 mg Clopidogrel Bisulfate (Plavix) 75 mg PO DAILY [facility] Last Admin: 01/03/17 08:52 Dose: Not Given Dextrose (Dextrose 50% Inj) 0 ml IV STAT PRN; Protocol PRN Reason: Hyglycemia Protocol Last Admin: 01/02/17 17:56 Dose: 50 ml Dextrose (Glutose 15) 0 gm PO ONCE PRN; Protocol PRN Reason: Hypoglycemia Protocol Donepezil HCl (Aricept Odt) 10 mg PO DAILY [facility] Last Admin: 01/03/17 08:54 Dose: 10 mg Enoxaparin Sodium (Lovenox) 40 mg SC DAILY [facility] PRN Reason: Protocol Last Admin: 01/03/17 10:54 Dose: 40 mg Glucagon (Glucagen Diagnostic Kit) 0 mg IM STAT PRN; Protocol PRN Reason: Hypoglycemia Protocol Piperacillin Sod/Tazobactam (Sod 3.375 gm/ Sodium Chloride) 100 mls @ 100 mls/ hr IVPB Q8 [facility] Last Admin: 01/03/17 08:54 Dose: 100 mls/hr Vancomycin HCl 1 gm/ Sodium (Chloride) 250 mls @ 166.667 mls/hr IVPB DAILY [facility] Last Admin: 01/03/17 08:54 Dose: 166.667 mls/hr Dextrose/Sodium Chloride (Dextrose 5%/0.45% Ns 1000 Ml) 1,000 mls @ 40 mls/hr IV .Q24H [facility] Stop: 01/03/17 17:29 Last Admin: 01/02/17 17:48 Dose: 40 mls/hr Dextrose/Sodium Chloride (Dextrose 5%/0.45% Ns 1000 Ml) 1,000 mls @ 40 mls/hr IV .Q24H [facility] Stop: 01/04/17 09:56 Last Admin: 01/03/17 10:52 Dose: Not Given Memantine (Namenda) 10 mg PO BID [facility] Last Admin: 01/03/17 08:53 Dose: 10 mg Metoprolol Tartrate (Lopressor) 50 mg PO DAILY [facility] Last Admin: 01/03/17 08:53 Dose: Not Given Sitagliptin Phosphate (Januvia) 100 mg PO DAILY [facility] Last Admin: 01/03/17 08:53 Dose: 100 mg Tramadol HCl (Ultram) 100 mg PO Q6 PRN PRN Reason: Pain, moderate (4-7) Valsartan (Diovan) 160 mg PO DAILY [facility] Last Admin: 01/03/17 08:53 Dose: Not Given - Labs Labs: 01/01/17 06:30 01/01/17 06:30 PT 13.9 Seconds (9.8-13.1) H 12/31/16 15:00 INR 1.2 (0.9-1.2) 12/31/16 15:00 APTT 29.4 Seconds (25.6-37.1) 12/31/16 15:00 - Constitutional Appears: Non-toxic, No Acute Distress - Head Exam Head Exam: NORMAL INSPECTION - Eye Exam Eye Exam: Normal appearance - Respiratory Exam Respiratory Exam: Clear to Ausculation Bilateral, NORMAL BREATHING PATTERN - Cardiovascular Exam Cardiovascular Exam: REGULAR RHYTHM, +S1, +S2. absent: Murmur - GI/Abdominal Exam GI & Abdominal Exam: Soft, Normal Bowel Sounds. absent: Tenderness - Extremities Exam Additional comments: left foot in dressing, cdi. - Skin Skin Exam: Dry, Warm Assessment and Plan (1) Cellulitis of foot, left Status: Acute (2) Gangrene of toe of left foot Status: Acute (3) Diabetes mellitus Status: Chronic - Assessment and Plan (Free Text) Assessment: 86 yo male PMHx of CAD with CABG, DM, HTN, hypercholesterolemia, dementia, peripheral vascular disease admitted for left hallux gangrene and localized cellulitis. Plan: No acute events overnight No pain at this time dm controlled, continue current meds ID on board, continue IV abx Cardiology on board, appreciate recommendations - cleared from cardiac standpoint Podiatry following, appreciate input Scheduled for OR on 9:45am for L 1st partial ray amputation and bone bx Patient will be medically optimized for surgery on due to previous plavix adminstration transfer to med/surg <Tavares William L - Last Filed: 01/04/17 07:34> Objective - Vital Signs/Intake and Output Vital Signs (last 24 hours): Temp Pulse Resp BP Pulse Ox 98 F 80 19 124/54 L 99 01/04/17 04:33 01/04/17 04:33 01/04/17 04:33 01/04/17 04:33 01/04/17 04:33 Intake and Output: 01/04/17 01/04/17 06:59 18:59 Intake Total 1920 Balance 1920 - Medications Medications: Current Medications Acetaminophen (Tylenol 325mg Tab) 650 mg PO Q6 PRN PRN Reason: Pain, Mild (1-3) Last Admin: 01/03/17 21:25 Dose: 650 mg Cilostazol (Pletal) 100 mg PO BID [facility] Last Admin: 01/03/17 17:00 Dose: 100 mg Clopidogrel Bisulfate (Plavix) 75 mg PO DAILY [facility] Last Admin: 01/03/17 08:52 Dose: Not Given Dextrose (Dextrose 50% Inj) 0 ml IV STAT PRN; Protocol PRN Reason: Hyglycemia Protocol Last Admin: 01/02/17 17:56 Dose: 50 ml Dextrose (Glutose 15) 0 gm PO ONCE PRN; Protocol PRN Reason: Hypoglycemia Protocol Donepezil HCl (Aricept Odt) 10 mg PO DAILY [facility] Last Admin: 01/03/17 08:54 Dose: 10 mg Enoxaparin Sodium (Lovenox) 40 mg SC DAILY [facility] PRN Reason: Protocol Last Admin: 01/03/17 10:54 Dose: 40 mg Glucagon (Glucagen Diagnostic Kit) 0 mg IM STAT PRN; Protocol PRN Reason: Hypoglycemia Protocol Piperacillin Sod/Tazobactam (Sod 3.375 gm/ Sodium Chloride) 100 mls @ 100 mls/ hr IVPB Q8 [facility] Last Admin: 01/04/17 00:24 Dose: 100 mls/hr Vancomycin HCl 1 gm/ Sodium (Chloride) 250 mls @ 166.667 mls/hr IVPB DAILY [facility] Last Admin: 01/03/17 08:54 Dose: 166.667 mls/hr Dextrose/Sodium Chloride (Dextrose 5%/0.45% Ns 1000 Ml) 1,000 mls @ 40 mls/hr IV .Q24H [facility] Stop: 01/04/17 09:56 Last Admin: 01/03/17 21:27 Dose: 40 mls/hr Memantine (Namenda) 10 mg PO BID [facility] Last Admin: 01/03/17 17:00 Dose: 10 mg Metoprolol Tartrate (Lopressor) 50 mg PO DAILY [facility] Last Admin: 01/03/17 08:53 Dose: Not Given Sitagliptin Phosphate (Januvia) 100 mg PO DAILY [facility] Last Admin: 01/03/17 08:53 Dose: 100 mg Tramadol HCl (Ultram) 100 mg PO Q6 PRN PRN Reason: Pain, moderate (4-7) Valsartan (Diovan) 160 mg PO DAILY [facility] Last Admin: 01/03/17 08:53 Dose: Not Given - Labs Labs: 01/01/17 06:30 01/01/17 06:30 PT 13.9 Seconds (9.8-13.1) H 12/31/16 15:00 INR 1.2 (0.9-1.2) 12/31/16 15:00 APTT 29.4 Seconds (25.6-37.1) 12/31/16 15:00 Assessment and Plan (1) Coronary artery disease Status: Acute (2) Cellulitis of foot, left Status: Acute (3) Gangrene of toe of left foot Status: Acute (4) Dementia Status: Chronic (5) Diabetes mellitus Status: Chronic - Assessment and Plan (Free Text) Plan: I was present during evaluation and discussed with Dr Niall alves plans of care and mgt.
[2017-01-04] MEDS: Piperacillin/Tazobact 3.375 GM in Sodium Chloride 0.9% 100 ML IVPB SCH ×3 (00:24→17:10)
--- NOTE | 2017-01-04 09:10 | CP.PCM.PN ---
Subjective - Date & Time of Evaluation Date of Evaluation: 01/04/17 Time of Evaluation: 09:07 - Subjective Subjective: 86 y/o male seen bedside for left hallux gangrene and cellulitis. Pt is in NAD. Pt is resting comfortably and denies of any overnight events. Patient going to OR tomorrow morning at 9:45am with Dr. Navarrete for left 1st partial ray amputation and bone biopsy. Patient to be NPO after midnight. Denies n/f/v/d/c/ sob. Objective - Vital Signs/Intake and Output Vital Signs (last 24 hours): Temp Pulse Resp BP Pulse Ox 97.5 F L 79 18 135/62 99 01/04/17 08:10 01/04/17 08:10 01/04/17 08:10 01/04/17 08:10 01/04/17 08:10 Intake and Output: 01/04/17 01/04/17 06:59 18:59 Intake Total 1920 Balance 1920 - Medications Medications: Current Medications Acetaminophen (Tylenol 325mg Tab) 650 mg PO Q6 PRN PRN Reason: Pain, Mild (1-3) Last Admin: 01/03/17 21:25 Dose: 650 mg Cilostazol (Pletal) 100 mg PO BID [facility] Last Admin: 01/03/17 17:00 Dose: 100 mg Clopidogrel Bisulfate (Plavix) 75 mg PO DAILY [facility] Last Admin: 01/03/17 08:52 Dose: Not Given Dextrose (Dextrose 50% Inj) 0 ml IV STAT PRN; Protocol PRN Reason: Hyglycemia Protocol Last Admin: 01/02/17 17:56 Dose: 50 ml Dextrose (Glutose 15) 0 gm PO ONCE PRN; Protocol PRN Reason: Hypoglycemia Protocol Donepezil HCl (Aricept Odt) 10 mg PO DAILY [facility] Last Admin: 01/03/17 08:54 Dose: 10 mg Enoxaparin Sodium (Lovenox) 40 mg SC DAILY [facility] PRN Reason: Protocol Last Admin: 01/03/17 10:54 Dose: 40 mg Glucagon (Glucagen Diagnostic Kit) 0 mg IM STAT PRN; Protocol PRN Reason: Hypoglycemia Protocol Piperacillin Sod/Tazobactam (Sod 3.375 gm/ Sodium Chloride) 100 mls @ 100 mls/ hr IVPB Q8 [facility] Last Admin: 01/04/17 00:24 Dose: 100 mls/hr Vancomycin HCl 1 gm/ Sodium (Chloride) 250 mls @ 166.667 mls/hr IVPB DAILY [facility] Last Admin: 01/03/17 08:54 Dose: 166.667 mls/hr Dextrose/Sodium Chloride (Dextrose 5%/0.45% Ns 1000 Ml) 1,000 mls @ 40 mls/hr IV .Q24H [facility] Stop: 01/04/17 09:56 Last Admin: 01/03/17 21:27 Dose: 40 mls/hr Memantine (Namenda) 10 mg PO BID [facility] Last Admin: 01/03/17 17:00 Dose: 10 mg Metoprolol Tartrate (Lopressor) 50 mg PO DAILY [facility] Last Admin: 01/03/17 08:53 Dose: Not Given Sitagliptin Phosphate (Januvia) 100 mg PO DAILY [facility] Last Admin: 01/03/17 08:53 Dose: 100 mg Tramadol HCl (Ultram) 100 mg PO Q6 PRN PRN Reason: Pain, moderate (4-7) Valsartan (Diovan) 160 mg PO DAILY [facility] Last Admin: 01/03/17 08:53 Dose: Not Given - Labs Labs: 01/01/17 06:30 01/01/17 06:30 PT 13.9 Seconds (9.8-13.1) H 12/31/16 15:00 INR 1.2 (0.9-1.2) 12/31/16 15:00 APTT 29.4 Seconds (25.6-37.1) 12/31/16 15:00 - Constitutional Appears: Well, Non-toxic, No Acute Distress - Extremities Exam Additional comments: Left foot focused exam: VASC: DP/PT pulses are palpable, [employer]: < 3 sec to lesser digits DERM: Left hallux is necrotic and hyperpigmented, no active drainage, no purulence, mild malodor present, localized erythema noted, no ascending cellulitis noted NEURO: Grossly intact ORTHO: Mild pain on palpation of the left hallux - Neurological Exam Neurological Exam: Alert, Awake, Oriented x3 - Psychiatric Exam Psychiatric exam: Normal Affect, Normal Mood Assessment and Plan - Assessment and Plan (Free Text) Assessment: 86 y/o male with Left hallux gangrene and localized cellulitis seen bedside Plan: Pt evaluated and chart reviewed Discussed with attending Dr. Navarrete Labs and vitals reviewed Applied DSD to Left foot Continue IV abx Pt to go to OR on 9:45am for L 1st partial ray amputation and bone bx Cardiac and medical optimization appreciated Spoke with daughter Akosua in regards to surgical procedure Verbal consent obtained from the daughter after careful explanation of risks benefits and risks of surgical procedure patient to be NPO past midnight Podiatry will continue to follow
[2017-01-04] MEDS: Enoxaparin 40 mg Syringe SC SCH (09:21)
[2017-01-04] MEDS: Cilostazol 100 mg Tab UD PO SCH ×2 (09:22→17:06)
[2017-01-04] MEDS: Donepezil HCl 10 MG ODT PO SCH (09:23)
--- NOTE | 2017-01-04 10:56 | CP.PCM.PN ---
Subjective - Date & Time of Evaluation Date of Evaluation: 01/04/17 Time of Evaluation: 08:55 - Subjective Subjective: Patient seen and evaluated at bedside. No acute events overnight. Afebrile. Podiatry following. Resting comfortably. No complaints of pain and/or hypoglycemic symptoms. Pain well controlled with meds. Scheduled for OR tomorrow. Objective - Vital Signs/Intake and Output Vital Signs (last 24 hours): Temp Pulse Resp BP Pulse Ox 97.5 F L 79 18 135/62 99 01/04/17 08:10 01/04/17 09:22 01/04/17 08:10 01/04/17 09:22 01/04/17 08:10 Intake and Output: 01/04/17 01/04/17 06:59 18:59 Intake Total 1920 Balance 1920 - Medications Medications: Current Medications Acetaminophen (Tylenol 325mg Tab) 650 mg PO Q6 PRN PRN Reason: Pain, Mild (1-3) Last Admin: 01/03/17 21:25 Dose: 650 mg Cilostazol (Pletal) 100 mg PO BID [facility] Last Admin: 01/04/17 09:22 Dose: 100 mg Clopidogrel Bisulfate (Plavix) 75 mg PO DAILY [facility] [place] Last Admin: 01/03/17 08:52 Dose: Not Given Dextrose (Dextrose 50% Inj) 0 ml IV STAT PRN; Protocol PRN Reason: Hyglycemia Protocol Last Admin: 01/02/17 17:56 Dose: 50 ml Dextrose (Glutose 15) 0 gm PO ONCE PRN; Protocol PRN Reason: Hypoglycemia Protocol Donepezil HCl (Aricept Odt) 10 mg PO DAILY [facility] [place] Last Admin: 01/04/17 09:23 Dose: 10 mg Enoxaparin Sodium (Lovenox) 40 mg SC DAILY [facility] [place] PRN Reason: Protocol Last Admin: 01/04/17 09:21 Dose: 40 mg Glucagon (Glucagen Diagnostic Kit) 0 mg IM STAT PRN; Protocol PRN Reason: Hypoglycemia Protocol Piperacillin Sod/Tazobactam (Sod 3.375 gm/ Sodium Chloride) 100 mls @ 100 mls/ hr IVPB Q8 [facility] [place] Last Admin: 01/04/17 09:28 Dose: 100 mls/hr Vancomycin HCl 1 gm/ Sodium (Chloride) 250 mls @ 166.667 mls/hr IVPB DAILY [facility] [place] Last Admin: 01/04/17 09:28 Dose: 166.667 mls/hr Memantine (Namenda) 10 mg PO BID [facility] [place] Last Admin: 01/04/17 09:22 Dose: 10 mg Metoprolol Tartrate (Lopressor) 50 mg PO DAILY [facility] [place] Last Admin: 01/04/17 09:22 Dose: 50 mg Sitagliptin Phosphate (Januvia) 100 mg PO DAILY [facility] [place] Last Admin: 01/04/17 09:22 Dose: 100 mg Tramadol HCl (Ultram) 100 mg PO Q6 PRN PRN Reason: Pain, moderate (4-7) Last Admin: 01/04/17 09:26 Dose: 100 mg Valsartan (Diovan) 160 mg PO DAILY [facility] [place] Last Admin: 01/04/17 09:22 Dose: 160 mg - Labs Labs: 01/01/17 06:30 01/01/17 06:30 PT 13.9 Seconds (9.8-13.1) H 12/31/16 15:00 INR 1.2 (0.9-1.2) 12/31/16 15:00 APTT 29.4 Seconds (25.6-37.1) 12/31/16 15:00 - Constitutional Appears: Non-toxic, No Acute Distress - Head Exam Head Exam: ATRAUMATIC, NORMAL INSPECTION, NORMOCEPHALIC - Eye Exam Eye Exam: Normal appearance - Respiratory Exam Respiratory Exam: Clear to Ausculation Bilateral, NORMAL BREATHING PATTERN - Cardiovascular Exam Cardiovascular Exam: REGULAR RHYTHM, +S1, +S2. absent: Murmur - GI/Abdominal Exam GI & Abdominal Exam: Soft, Normal Bowel Sounds. absent: Tenderness - Extremities Exam Additional comments: left foot in dressing, cdi. - Neurological Exam Neurological Exam: Alert, Awake - Psychiatric Exam Psychiatric exam: Normal Affect, Normal Mood - Skin Skin Exam: Dry, Intact, Normal Color, Warm Assessment and Plan (1) Cellulitis of foot, left Status: Acute (2) Gangrene of toe of left foot Status: Acute (3) Diabetes mellitus Status: Chronic - Assessment and Plan (Free Text) Assessment: 86 yo male PMHx of CAD with CABG, DM, HTN, hypercholesterolemia, dementia, peripheral vascular disease admitted for left hallux gangrene and localized cellulitis. Plan: No acute events overnight No pain at this time, controlled with current meds dm controlled, continue current meds ID on board, continue IV abx (vanco/zosyn) Cardiology on board, appreciate recommendations - cleared from cardiac standpoint Podiatry following, appreciate input Scheduled for OR on 9:45am for L 1st partial ray amputation and bone bx NPO after midnight Patient medically optimized for procedure tomorrow. Hold Lovenox. transfer to med/surg
[2017-01-04] MEDS ORDERED: Dextrose 5%/0.45% NS 1,000 ML IV SCH (12:00)
--- NOTE | 2017-01-04 18:44 | CP.PCM.PN ---
Subjective - Date & Time of Evaluation Date of Evaluation: 01/04/17 Time of Evaluation: 08:00 - Subjective Subjective: Pt is resting comfortably and denies of any overnight events. Patient going to OR tomorrow morning at 9:45am with Dr. Navarrete for left 1st partial ray amputation and bone biopsy. Patient to be NPO after midnight. Denies n/f/v/d/c/ sob. Objective - Vital Signs/Intake and Output Vital Signs (last 24 hours): Temp Pulse Resp BP Pulse Ox 97.4 F L 65 20 99/59 L 100 01/04/17 15:47 01/04/17 15:47 01/04/17 15:47 01/04/17 15:47 01/04/17 15:47 Intake and Output: 01/04/17 01/04/17 06:59 18:59 Intake Total 1920 1100 Balance 1920 1100 - Medications Medications: Current Medications Acetaminophen (Tylenol 325mg Tab) 650 mg PO Q6 PRN PRN Reason: Pain, Mild (1-3) Last Admin: 01/03/17 21:25 Dose: 650 mg Cilostazol (Pletal) 100 mg PO BID [facility] Last Admin: 01/04/17 17:06 Dose: 100 mg Clopidogrel Bisulfate (Plavix) 75 mg PO DAILY [facility] Last Admin: 01/03/17 08:52 Dose: Not Given Dextrose (Dextrose 50% Inj) 0 ml IV STAT PRN; Protocol PRN Reason: Hyglycemia Protocol Last Admin: 01/02/17 17:56 Dose: 50 ml Dextrose (Glutose 15) 0 gm PO ONCE PRN; Protocol PRN Reason: Hypoglycemia Protocol Donepezil HCl (Aricept Odt) 10 mg PO DAILY [facility] Last Admin: 01/04/17 09:23 Dose: 10 mg Enoxaparin Sodium (Lovenox) 40 mg SC DAILY [facility] PRN Reason: Protocol Last Admin: 01/04/17 09:21 Dose: 40 mg Glucagon (Glucagen Diagnostic Kit) 0 mg IM STAT PRN; Protocol PRN Reason: Hypoglycemia Protocol Piperacillin Sod/Tazobactam (Sod 3.375 gm/ Sodium Chloride) 100 mls @ 100 mls/ hr IVPB Q8 [facility] Last Admin: 01/04/17 17:10 Dose: 100 mls/hr Vancomycin HCl 1 gm/ Sodium (Chloride) 250 mls @ 166.667 mls/hr IVPB DAILY [facility] Last Admin: 01/04/17 09:28 Dose: 166.667 mls/hr Dextrose/Sodium Chloride (Dextrose 5%/0.45% Ns 1000 Ml) 1,000 mls @ 40 mls/hr IV .Q24H [facility] Stop: 01/05/17 11:55 Last Admin: 01/04/17 17:05 Dose: 40 mls/hr Memantine (Namenda) 10 mg PO BID [facility] Last Admin: 01/04/17 17:06 Dose: 10 mg Metoprolol Tartrate (Lopressor) 50 mg PO DAILY [facility] Last Admin: 01/04/17 09:22 Dose: 50 mg Sitagliptin Phosphate (Januvia) 100 mg PO DAILY [facility] Last Admin: 01/04/17 09:22 Dose: 100 mg Tramadol HCl (Ultram) 100 mg PO Q6 PRN PRN Reason: Pain, moderate (4-7) Last Admin: 01/04/17 09:26 Dose: 100 mg Valsartan (Diovan) 160 mg PO DAILY [facility] Last Admin: 01/04/17 09:22 Dose: 160 mg - Labs Labs: 01/01/17 06:30 01/01/17 06:30 PT 13.9 Seconds (9.8-13.1) H 12/31/16 15:00 INR 1.2 (0.9-1.2) 12/31/16 15:00 APTT 29.4 Seconds (25.6-37.1) 12/31/16 15:00 - Constitutional Appears: Non-toxic, Chronically Ill - Head Exam Head Exam: NORMOCEPHALIC - Eye Exam Eye Exam: PERRL. absent: Scleral icterus - ENT Exam ENT Exam: Mucous Membranes Dry - Neck Exam Neck Exam: absent: Lymphadenopathy - Respiratory Exam Respiratory Exam: Decreased Breath Sounds - Cardiovascular Exam Cardiovascular Exam: REGULAR RHYTHM - GI/Abdominal Exam GI & Abdominal Exam: Distended, Soft - Rectal Exam Rectal Exam: Deferred - Extremities Exam Extremities Exam: Pedal Edema Additional comments: dry gangrene left hallux cellulitis less Assessment and Plan - Assessment and Plan (Free Text) Plan: for or/amp in am
[2017-01-05] MEDS: Piperacillin/Tazobact 3.375 GM in Sodium Chloride 0.9% 100 ML IVPB SCH ×3 (00:39→17:43)
[2017-01-05 05:47] LABS: HEMATOCRIT 27.5 % (35.0-51.0); MEAN CELL VOLUME 81.6 fl (80.0-94.0); MEAN CORPUSCULAR HEMOGLOBIN 26.8 pg (27.0-31.0); MEAN CORPUSCULAR HGB CONC 32.8 g/dL (33.0-37.0); RED CELL DISTRIBUTION WIDTH 15.3 % (11.5-14.5)
[2017-01-05 07:01] LABS: BLOOD UREA NITROGEN 11 mg/dl (9-20); CARBON DIOXIDE 23 mmol/L (22-30); CHLORIDE 106 mmol/L (98-107); GFR AFRICAN-AMERICAN > 60; GLUCOSE,RANDOM 97 mg/dL (75-110); POTASSIUM 3.8 MMOL/L (3.6-5.0); SODIUM 137 mmol/l (132-148)
[2017-01-05] MEDS ORDERED: Lidocaine 1% Inj (20ml) IJ ONE ×3 (08:29→10:07)
[2017-01-05] MEDS ORDERED: Bupivacaine 0.5% Inj(30mL) IJ ONE (08:29)
--- NOTE | 2017-01-05 08:29 | CP.PCM.PN ---
Subjective - Date & Time of Evaluation Date of Evaluation: 01/05/17 Time of Evaluation: 08:28 - Subjective Subjective: 86 y/o male seen bedside for left hallux gangrene and cellulitis. Pt is in NAD. Pt is resting comfortably and denies of any overnight events. Patient going to OR this morning at 9:45am with Dr. Navarrete for left 1st partial ray amputation and bone biopsy. Patient has been NPO since midnight. Denies n/f/v/d/c/sob. Objective - Vital Signs/Intake and Output Vital Signs (last 24 hours): Temp Pulse Resp BP Pulse Ox 97.6 F 84 18 152/61 H 98 01/05/17 07:57 01/05/17 07:57 01/05/17 07:57 01/05/17 07:57 01/05/17 07:57 - Medications Medications: Current Medications Acetaminophen (Tylenol 325mg Tab) 650 mg PO Q6 PRN PRN Reason: Pain, Mild (1-3) Last Admin: 01/03/17 21:25 Dose: 650 mg Cilostazol (Pletal) 100 mg PO BID [facility] Last Admin: 01/04/17 17:06 Dose: 100 mg Clopidogrel Bisulfate (Plavix) 75 mg PO DAILY [facility] Last Admin: 01/03/17 08:52 Dose: Not Given Dextrose (Dextrose 50% Inj) 0 ml IV STAT PRN; Protocol PRN Reason: Hyglycemia Protocol Last Admin: 01/02/17 17:56 Dose: 50 ml Dextrose (Glutose 15) 0 gm PO ONCE PRN; Protocol PRN Reason: Hypoglycemia Protocol Donepezil HCl (Aricept Odt) 10 mg PO DAILY [facility] Last Admin: 01/04/17 09:23 Dose: 10 mg Enoxaparin Sodium (Lovenox) 40 mg SC DAILY [facility] PRN Reason: Protocol Last Admin: 01/04/17 09:21 Dose: 40 mg Glucagon (Glucagen Diagnostic Kit) 0 mg IM STAT PRN; Protocol PRN Reason: Hypoglycemia Protocol Piperacillin Sod/Tazobactam (Sod 3.375 gm/ Sodium Chloride) 100 mls @ 100 mls/ hr IVPB Q8 [facility] Last Admin: 01/05/17 00:39 Dose: 100 mls/hr Vancomycin HCl 1 gm/ Sodium (Chloride) 250 mls @ 166.667 mls/hr IVPB DAILY [facility] Last Admin: 01/04/17 09:28 Dose: 166.667 mls/hr Dextrose/Sodium Chloride (Dextrose 5%/0.45% Ns 1000 Ml) 1,000 mls @ 40 mls/hr IV .Q24H [facility] Stop: 01/05/17 11:55 Last Admin: 01/04/17 17:05 Dose: 40 mls/hr Memantine (Namenda) 10 mg PO BID [facility] Last Admin: 01/04/17 17:06 Dose: 10 mg Metoprolol Tartrate (Lopressor) 50 mg PO DAILY [facility] Last Admin: 01/04/17 09:22 Dose: 50 mg Sitagliptin Phosphate (Januvia) 100 mg PO DAILY [facility] Last Admin: 01/04/17 09:22 Dose: 100 mg Tramadol HCl (Ultram) 100 mg PO Q6 PRN PRN Reason: Pain, moderate (4-7) Last Admin: 01/04/17 21:07 Dose: 100 mg Valsartan (Diovan) 160 mg PO DAILY [facility] Last Admin: 01/04/17 09:22 Dose: 160 mg - Labs Labs: 01/05/17 05:00 01/05/17 05:00 PT 13.9 Seconds (9.8-13.1) H 12/31/16 15:00 INR 1.2 (0.9-1.2) 12/31/16 15:00 APTT 29.4 Seconds (25.6-37.1) 12/31/16 15:00 - Constitutional Appears: Well, Non-toxic, No Acute Distress - Extremities Exam Additional comments: Left foot focused exam: VASC: DP/PT pulses are palpable, [employer]: < 3 sec to lesser digits DERM: Left hallux is necrotic and hyperpigmented, no active drainage, no purulence, mild malodor present, localized erythema noted, no ascending cellulitis noted NEURO: Grossly intact ORTHO: Mild pain on palpation of the left hallux - Neurological Exam Neurological Exam: Alert, Awake Assessment and Plan - Assessment and Plan (Free Text) Assessment: 86 y/o male with Left hallux gangrene and localized cellulitis seen bedside Plan: Pt evaluated and chart reviewed Discussed with attending Dr. Navarrete Labs and vitals reviewed Applied DSD to Left foot Continue IV abx Pt to go to OR today at 9:45am for L 1st partial ray amputation and bone bx Cardiac and medical optimization appreciated Spoke with daughter Akosua in regards to surgical procedure Verbal consent obtained from the daughter after careful explanation of risks benefits and risks of surgical procedure patient has been NPO past midnight Podiatry will continue to follow
[2017-01-05] MEDS: Donepezil HCl 10 MG ODT PO SCH ×2 (08:45→17:36)
[2017-01-05] MEDS: Cilostazol 100 mg Tab UD PO SCH ×2 (08:46→17:37)
[2017-01-05] MEDS ORDERED: MethylPREDNISolone Depo 40 mg/ml Inj ONE (09:01)
[2017-01-05] MEDS ORDERED: Midazolam 2 MG/2 ML VIAL ONE (09:03)
[2017-01-05] MEDS ORDERED: Propofol 10 mg/ml Inj (20 ML) ONE (09:03)
[2017-01-05] MEDS ORDERED: Lactated Ringer's 500 ML IV ONE (09:57)
[2017-01-05] MEDS ORDERED: Vancomycin 1 g Inj IVPB ONE (10:05)
[2017-01-05] MEDS ORDERED: Bupivacaine 0.5% 50 ML IJ ONE ×2 (10:07)
--- NOTE | 2017-01-05 11:09 | CP.PCM.PN ---
Subjective - Date & Time of Evaluation Date of Evaluation: 01/05/17 Time of Evaluation: 09:00 - Subjective Subjective: Patient seen and evaluated at bedside. No acute events overnight.Maintained NPO overnight. Afebrile. Podiatry following. Resting comfortably. No complaints of pain and/or hypoglycemic symptoms. Pain well controlled with meds. Scheduled for OR today. Objective - Vital Signs/Intake and Output Vital Signs (last 24 hours): Temp Pulse Resp BP Pulse Ox 97.6 F 84 18 152/61 H 98 01/05/17 07:57 01/05/17 08:46 01/05/17 07:57 01/05/17 08:46 01/05/17 07:57 Intake and Output: 01/05/17 01/05/17 06:59 18:59 Intake Total 200 Balance 200 - Medications Medications: Current Medications Acetaminophen (Tylenol 325mg Tab) 650 mg PO Q6 PRN PRN Reason: Pain, Mild (1-3) Last Admin: 01/03/17 21:25 Dose: 650 mg Cilostazol (Pletal) 100 mg PO BID [facility] Last Admin: 01/05/17 08:46 Dose: Not Given Clopidogrel Bisulfate (Plavix) 75 mg PO DAILY [facility] Last Admin: 01/03/17 08:52 Dose: Not Given Dextrose (Dextrose 50% Inj) 0 ml IV STAT PRN; Protocol PRN Reason: Hyglycemia Protocol Last Admin: 01/02/17 17:56 Dose: 50 ml Dextrose (Glutose 15) 0 gm PO ONCE PRN; Protocol PRN Reason: Hypoglycemia Protocol Donepezil HCl (Aricept Odt) 10 mg PO DAILY [facility] Last Admin: 01/05/17 08:45 Dose: Not Given Enoxaparin Sodium (Lovenox) 40 mg SC DAILY [facility] PRN Reason: Protocol Last Admin: 01/04/17 09:21 Dose: 40 mg Glucagon (Glucagen Diagnostic Kit) 0 mg IM STAT PRN; Protocol PRN Reason: Hypoglycemia Protocol Piperacillin Sod/Tazobactam (Sod 3.375 gm/ Sodium Chloride) 100 mls @ 100 mls/ hr IVPB Q8 [facility] Last Admin: 01/05/17 08:47 Dose: 100 mls/hr Vancomycin HCl 1 gm/ Sodium (Chloride) 250 mls @ 166.667 mls/hr IVPB DAILY [facility] Last Admin: 01/04/17 09:28 Dose: 166.667 mls/hr Dextrose/Sodium Chloride (Dextrose 5%/0.45% Ns 1000 Ml) 1,000 mls @ 40 mls/hr IV .Q24H [facility] Stop: 01/05/17 11:55 Last Admin: 01/04/17 17:05 Dose: 40 mls/hr Memantine (Namenda) 10 mg PO BID [facility] Last Admin: 01/05/17 08:46 Dose: Not Given Metoprolol Tartrate (Lopressor) 50 mg PO DAILY [facility] Last Admin: 01/05/17 08:46 Dose: 50 mg Sitagliptin Phosphate (Januvia) 100 mg PO DAILY [facility] Last Admin: 01/05/17 08:45 Dose: Not Given Tramadol HCl (Ultram) 100 mg PO Q6 PRN PRN Reason: Pain, moderate (4-7) Last Admin: 01/04/17 21:07 Dose: 100 mg Valsartan (Diovan) 160 mg PO DAILY [facility] Last Admin: 01/05/17 08:45 Dose: Not Given - Labs Labs: 01/05/17 05:00 01/05/17 05:00 PT 13.9 Seconds (9.8-13.1) H 12/31/16 15:00 INR 1.2 (0.9-1.2) 12/31/16 15:00 APTT 29.4 Seconds (25.6-37.1) 12/31/16 15:00 - Constitutional Appears: Well, Non-toxic, No Acute Distress - Head Exam Head Exam: ATRAUMATIC, NORMAL INSPECTION, NORMOCEPHALIC - Eye Exam Eye Exam: Normal appearance - Neck Exam Neck Exam: Normal Inspection - Respiratory Exam Respiratory Exam: Clear to Ausculation Bilateral, NORMAL BREATHING PATTERN - Cardiovascular Exam Cardiovascular Exam: REGULAR RHYTHM, +S1, +S2. absent: Murmur - GI/Abdominal Exam GI & Abdominal Exam: Soft, Normal Bowel Sounds. absent: Tenderness - Extremities Exam Additional comments: left foot in dressing, cdi. - Neurological Exam Neurological Exam: Alert, Awake - Psychiatric Exam Psychiatric exam: Normal Affect, Normal Mood - Skin Skin Exam: Dry, Intact, Normal Color, Warm Assessment and Plan (1) Cellulitis of foot, left Status: Acute (2) Gangrene of toe of left foot Status: Acute (3) Diabetes mellitus Status: Chronic - Assessment and Plan (Free Text) Assessment: 86 yo male PMHx of CAD with CABG, DM, HTN, hypercholesterolemia, dementia, peripheral vascular disease admitted for left hallux gangrene and localized cellulitis. Plan: No acute events overnight No pain at this time, controlled with current meds NPO maintained dm controlled, continue current meds ID on board, continue IV abx (vanco/zosyn) Cardiology on board, appreciate recommendations - cleared from cardiac standpoint Podiatry following, appreciate input Scheduled for OR today 9:45am for L 1st partial ray amputation and bone bx Patient medically optimized for procedure Hold Lovenox. follow up post op
--- NOTE | 2017-01-05 11:28 | PCM.SURG1 ---
Surgeon's Initial Post Op Note - Surgeon's Notes Surgeon: Dr. Navarrete Foreign Law Consultant: Dr. Burgos, Dr. Arellano, Dr. Knox Type of Anesthesia: IV Sedation, Local Anesthesia Administered By: Dr. Gamez Pre-Operative Diagnosis: left hallux gangrene and possible infection Operative Findings: see dictation Post-Operative Diagnosis: same as preop Operation Performed: left 1st partial ray resection Specimen/Specimens Removed: bone and soft tissue Estimated Blood Loss: EBL {In ML}: 10 Blood Products Given: N/A Drains Used: No Drains Post-Op Condition: Good Date of Surgery/Procedure: 01/05/17 Time of Surgery/Procedure: 10:00
[2017-01-05] MEDS ORDERED: Lactated Ringer's 1,000 ML IV SCH (11:29)
--- NOTE | 2017-01-05 13:52 | RAD ---
PROCEDURE: Left Foot Radiographs. 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 No other osseous abnormality. Soft tissue swelling seen in the amputation bed. . JOINTS: Normal. SOFT TISSUES: Vascular calcification OTHER FINDINGS: None. 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
--- NOTE | 2017-01-05 14:35 | OP ---
PROCEDURE DATE: 01/05/2017 SURGEON: Dr. Armani Navarrete DPM. WET ROASTER: Dr. Barbara Burgos DPM, PGY-1, Dr. Joy MEYERSM PGY-1, Dr. Joycelyn Knox DPM PGY-3 ANESTHESIOLOGIST: Dr. Gamez. ANESTHESIA: IV sedation. PREOPERATIVE DIAGNOSES: Left foot hallux gangrene with possible bone infection. POSTOPERATIVE DIAGNOSES: Left foot hallux gangrene with possible bone infection. PROCEDURE PERFORMED: Left foot partial first ray resection. INDICATIONS: The patient is an 86-year-old male with the above diagnosis. The patient has exhausted all conservative treatment at this time and now requires surgical intervention. The daughter gave verbal consent after careful explanation of risks, benefits, complications and alternatives for surgical procedure. No guarantees were given nor implied. PREPARATION: The patient was brought into the operating room and placed on the operating room table in a supine position. A timeout was performed for identification of correct patient and procedure. After induction of IV sedation , a local block consisting of 10 mL of 1:1 mixture of 1% lidocaine plain and 0.5 % Marcaine plain was given. Once local anesthesia was achieved, the left foot was then prepped and draped in a normal sterile manner and the procedure began. PROCEDURE: Left foot partial first ray resection. Attention was directed to the medial aspect of the left first metatarsal where a racquet type incision was made circumferentially at the level of the first metatarsophalangeal joint using a #15 blade. The incision was then extended down through the subcutaneous layers down to the level of bone. Using a bone clamp to stabilize the digit, the first digit was then disarticulated from the foot at the level of the first metatarsophalangeal joint. The specimen was then passed from the operative field and sent for pathology. Next, utilizing a fresh #15 blade, all necrotic and nonviable tissue was then excisionally debrided from the surgical site. The sesamoid were excised with a #15 blade and passed off the surgical field. Next, utilizing a #15 blade, all periosteal tissue was carefully resected off the metatarsal. Using a sagittal saw, the distal aspect of the first metatarsal shaft was then resected and passed from the operative field and sent for pathology. All rough edges were then smoothed utilizing a bone rasp and a sagittal saw. The surgical site was then irrigated with copious amounts of normal sterile saline. Subcutaneous tissue was then reapproximated with 2-0 and 3-0 Vicryl and the skin was then reapproximated utilizing 4-0 Prolene in a combination of simple and retention suture technique. The left foot was then dressed with Betadine-soaked Adaptic, sterile 4 x 4 gauze and Kerlix. POSTOPERATIVE CONDITION: The patient tolerated the anesthesia and procedure well and was escorted to recovery with vital signs stable and neurovascular status intact to the left foot. Podiatry will continue to follow the patient while in house and will follow up with Dr. Navarrete upon discharge. BARBARA BURGOS DPM Armani Navarrete DPM cc: [id number] TT: 01/05/2017 14:34:06 daisy HE
--- NOTE | 2017-01-05 18:16 | CP.PCM.PN ---
Subjective - Date & Time of Evaluation Date of Evaluation: 01/05/17 Time of Evaluation: 09:00 - Subjective Subjective: s/p 1st ray resection tolerated well c/s grew ecoli/ enterococcus cont iv rx / wound care Objective - Vital Signs/Intake and Output Vital Signs (last 24 hours): Temp Pulse Resp BP Pulse Ox 98.2 F 84 20 162/56 H 95 01/05/17 15:58 01/05/17 15:58 01/05/17 15:58 01/05/17 15:58 01/05/17 15:58 Intake and Output: 01/05/17 01/05/17 06:59 18:59 Intake Total 350 Balance 350 - Medications Medications: Current Medications Acetaminophen (Tylenol 325mg Tab) 650 mg PO Q4 PRN PRN Reason: Pain, Mild (1-3) Cilostazol (Pletal) 100 mg PO BID [facility] Last Admin: 01/05/17 17:37 Dose: 100 mg Clopidogrel Bisulfate (Plavix) 75 mg PO DAILY [facility] Last Admin: 01/03/17 08:52 Dose: Not Given Dextrose (Dextrose 50% Inj) 0 ml IV STAT PRN; Protocol PRN Reason: Hyglycemia Protocol Last Admin: 01/02/17 17:56 Dose: 50 ml Dextrose (Glutose 15) 0 gm PO ONCE PRN; Protocol PRN Reason: Hypoglycemia Protocol Donepezil HCl (Aricept Odt) 10 mg PO DAILY [facility] Last Admin: 01/05/17 17:36 Dose: 10 mg Enoxaparin Sodium (Lovenox) 40 mg SC DAILY [facility] PRN Reason: Protocol Last Admin: 01/04/17 09:21 Dose: 40 mg Glucagon (Glucagen Diagnostic Kit) 0 mg IM STAT PRN; Protocol PRN Reason: Hypoglycemia Protocol Piperacillin Sod/Tazobactam (Sod 3.375 gm/ Sodium Chloride) 100 mls @ 100 mls/ hr IVPB Q8 [facility] Last Admin: 01/05/17 17:43 Dose: 100 mls/hr Vancomycin HCl 1 gm/ Sodium (Chloride) 250 mls @ 166.667 mls/hr IVPB DAILY [facility] Last Admin: 01/05/17 12:45 Dose: 100 mls Lactated Ringer's (Lactated Ringer's) 1,000 mls @ 30 mls/hr IV .Q24H [facility] Last Admin: 01/05/17 14:17 Dose: 30 mls/hr Memantine (Namenda) 10 mg PO BID [facility] Last Admin: 01/05/17 17:37 Dose: 10 mg Metoprolol Tartrate (Lopressor) 50 mg PO DAILY [facility] Last Admin: 01/05/17 08:46 Dose: 50 mg Oxycodone/Acetaminophen (Percocet 5/325 Mg Tab) 2 tab PO Q4 PRN PRN Reason: Pain, severe (8-10) Stop: 01/08/17 11:30 Sitagliptin Phosphate (Januvia) 100 mg PO DAILY [facility] Last Admin: 01/05/17 08:45 Dose: Not Given Tramadol HCl (Ultram) 100 mg PO Q6 PRN PRN Reason: Pain, moderate (4-7) Last Admin: 01/04/17 21:07 Dose: 100 mg Valsartan (Diovan) 160 mg PO DAILY [facility] Last Admin: 01/05/17 17:36 Dose: 160 mg - Labs Labs: 01/05/17 05:00 01/05/17 05:00 PT 13.9 Seconds (9.8-13.1) H 12/31/16 15:00 INR 1.2 (0.9-1.2) 12/31/16 15:00 APTT 29.4 Seconds (25.6-37.1) 12/31/16 15:00 - Constitutional Appears: Non-toxic, Chronically Ill - Head Exam Head Exam: NORMOCEPHALIC - Eye Exam Eye Exam: absent: Scleral icterus - ENT Exam ENT Exam: Mucous Membranes Dry - Neck Exam Neck Exam: absent: Lymphadenopathy - Respiratory Exam Respiratory Exam: Decreased Breath Sounds - Cardiovascular Exam Cardiovascular Exam: REGULAR RHYTHM - GI/Abdominal Exam GI & Abdominal Exam: Distended - Rectal Exam Rectal Exam: Deferred - Exam Exam: NORMAL INSPECTION Assessment and Plan - Assessment and Plan (Free Text) Plan: s/p amp first digit left foot - gangrene + cellulitis
[2017-01-05] MEDS: Oxycodone/Acetaminophen 5/325 mg Tab PO PRN (20:09)
[2017-01-06] MEDS: Piperacillin/Tazobact 3.375 GM in Sodium Chloride 0.9% 100 ML IVPB SCH (00:19)
[2017-01-06] MEDS: Oxycodone/Acetaminophen 5/325 mg Tab PO PRN (04:41)
[2017-01-06 06:38] LABS: HEMATOCRIT 28.9 % (35.0-51.0); MEAN CORPUSCULAR HEMOGLOBIN 26.4 pg (27.0-31.0); MEAN CORPUSCULAR HGB CONC 32.6 g/dL (33.0-37.0); RED CELL DISTRIBUTION WIDTH 14.7 % (11.5-14.5); WHITE BLOOD COUNT 9.6 K/uL (4.8-10.8)
[2017-01-06 07:02] LABS: BLOOD UREA NITROGEN 9 mg/dl (9-20); CALCIUM 8.3 mg/dL (8.4-10.2); CARBON DIOXIDE 26 mmol/L (22-30); CHLORIDE 103 mmol/L (98-107); GFR AFRICAN-AMERICAN > 60; GLUCOSE,RANDOM 159 mg/dL (75-110); POTASSIUM 3.9 MMOL/L (3.6-5.0); SODIUM 134 mmol/l (132-148)
[2017-01-06] MEDS ORDERED: Povidone Iodine Topical 10% Sol ONE (08:12)
--- NOTE | 2017-01-06 08:51 | CP.PCM.PN ---
Subjective - Date & Time of Evaluation Date of Evaluation: 01/06/17 Time of Evaluation: 08:48 - Subjective Subjective: 86 y/o male seen bedside 1 day s/p left partial 1st ray amputation. Pt appears to be resting comfortable and is in NAD. Pt denies of any acute overnight events. Pt's dressing is clean, dry and intact. Pt denies of any F/N/V/C/SOB. Objective - Vital Signs/Intake and Output Vital Signs (last 24 hours): Temp Pulse Resp BP Pulse Ox 98.5 F 97 H 18 101/68 97 01/06/17 07:54 01/06/17 07:54 01/06/17 07:54 01/06/17 07:54 01/06/17 07:54 - Medications Medications: Current Medications Acetaminophen (Tylenol 325mg Tab) 650 mg PO Q4 PRN PRN Reason: Pain, Mild (1-3) Cilostazol (Pletal) 100 mg PO BID [facility] Last Admin: 01/05/17 17:37 Dose: 100 mg Clopidogrel Bisulfate (Plavix) 75 mg PO DAILY [facility] Last Admin: 01/03/17 08:52 Dose: Not Given Dextrose (Dextrose 50% Inj) 0 ml IV STAT PRN; Protocol PRN Reason: Hyglycemia Protocol Last Admin: 01/02/17 17:56 Dose: 50 ml Dextrose (Glutose 15) 0 gm PO ONCE PRN; Protocol PRN Reason: Hypoglycemia Protocol Donepezil HCl (Aricept Odt) 10 mg PO DAILY [facility] Last Admin: 01/05/17 17:36 Dose: 10 mg Enoxaparin Sodium (Lovenox) 40 mg SC DAILY [facility] PRN Reason: Protocol Last Admin: 01/04/17 09:21 Dose: 40 mg Glucagon (Glucagen Diagnostic Kit) 0 mg IM STAT PRN; Protocol PRN Reason: Hypoglycemia Protocol Vancomycin HCl 1 gm/ Sodium (Chloride) 250 mls @ 166.667 mls/hr IVPB DAILY [facility] Last Admin: 01/05/17 12:45 Dose: 100 mls Lactated Ringer's (Lactated Ringer's) 1,000 mls @ 30 mls/hr IV .Q24H [facility] Last Admin: 01/05/17 14:17 Dose: 30 mls/hr Memantine (Namenda) 10 mg PO BID [facility] Last Admin: 01/05/17 17:37 Dose: 10 mg Metoprolol Tartrate (Lopressor) 50 mg PO DAILY [facility] Last Admin: 01/05/17 08:46 Dose: 50 mg Oxycodone/Acetaminophen (Percocet 5/325 Mg Tab) 2 tab PO Q4 PRN PRN Reason: Pain, severe (8-10) Stop: 01/08/17 11:30 Last Admin: 01/06/17 04:41 Dose: 2 tab Sitagliptin Phosphate (Januvia) 100 mg PO DAILY [facility] Last Admin: 01/05/17 08:45 Dose: Not Given Tramadol HCl (Ultram) 100 mg PO Q6 PRN PRN Reason: Pain, moderate (4-7) Last Admin: 01/04/17 21:07 Dose: 100 mg Valsartan (Diovan) 160 mg PO DAILY [facility] Last Admin: 01/05/17 17:36 Dose: 160 mg - Labs Labs: 01/06/17 06:00 01/06/17 06:00 PT 13.9 Seconds (9.8-13.1) H 12/31/16 15:00 INR 1.2 (0.9-1.2) 12/31/16 15:00 APTT 29.4 Seconds (25.6-37.1) 12/31/16 15:00 - Constitutional Appears: Well, Non-toxic, No Acute Distress - Extremities Exam Additional comments: Left foot focused: VASC: DP/PT pulses are palpable, [employer]EV[employer]ER: < 3 sec to all digits DERM: Surgical site well coapted, surgical sutures are intact and no dehiscence noted, mild erythema surrounding the surgical site, no edema, no active drainage , no malodor, no clinical suspicion of active infection NEURO: Grossly intact ORTHO: Mild tenderness on palpation of the surgical site - Neurological Exam Neurological Exam: Alert, Awake Assessment and Plan - Assessment and Plan (Free Text) Assessment: 86 y/o male seen bedside 1 day s/p left partial 1st ray amputation Plan: Pt evaluated and chart reviewed Pt discussed with attending Dr. Navarrete Labs and vitals reviewed -- Tmax: 100.6 degrees, WBC: 9.6 Applied betadine soaked adaptic, gauze and DSD Continue IV abx Continue off loading boots while in bed Podiatry will continue to follow while in-house
[2017-01-06] MEDS: Cilostazol 100 mg Tab UD PO SCH (09:49)
[2017-01-06] MEDS: Enoxaparin 40 mg Syringe SC SCH (09:50)
[2017-01-06] MEDS: Donepezil HCl 10 MG ODT PO SCH (09:50)
[2017-01-06 11:35] VITALS: BMI 23.6
--- NOTE | 2017-01-06 13:56 | CP.PCM.PN ---
Subjective - Date & Time of Evaluation Date of Evaluation: 01/06/17 Time of Evaluation: 07:00 - Subjective Subjective: comfortable s/p first ray resection Objective - Vital Signs/Intake and Output Vital Signs (last 24 hours): Temp Pulse Resp BP Pulse Ox 98.4 F 73 18 103/54 L 93 L 01/06/17 11:59 01/06/17 11:59 01/06/17 11:59 01/06/17 11:59 01/06/17 11:59 - Medications Medications: Current Medications Acetaminophen (Tylenol 325mg Tab) 650 mg PO Q4 PRN PRN Reason: Pain, Mild (1-3) Cilostazol (Pletal) 100 mg PO BID [facility] Last Admin: 01/06/17 09:49 Dose: 100 mg Clopidogrel Bisulfate (Plavix) 75 mg PO DAILY [facility] Last Admin: 01/06/17 09:49 Dose: 75 mg Dextrose (Dextrose 50% Inj) 0 ml IV STAT PRN; Protocol PRN Reason: Hyglycemia Protocol Last Admin: 01/02/17 17:56 Dose: 50 ml Dextrose (Glutose 15) 0 gm PO ONCE PRN; Protocol PRN Reason: Hypoglycemia Protocol Donepezil HCl (Aricept Odt) 10 mg PO DAILY [facility] Last Admin: 01/06/17 09:50 Dose: 10 mg Enoxaparin Sodium (Lovenox) 40 mg SC DAILY [facility] PRN Reason: Protocol Last Admin: 01/06/17 09:50 Dose: 40 mg Glucagon (Glucagen Diagnostic Kit) 0 mg IM STAT PRN; Protocol PRN Reason: Hypoglycemia Protocol Vancomycin HCl 1 gm/ Sodium (Chloride) 250 mls @ 166.667 mls/hr IVPB DAILY [facility] Last Admin: 01/06/17 09:51 Dose: 166.667 mls/hr Lactated Ringer's (Lactated Ringer's) 1,000 mls @ 30 mls/hr IV .Q24H [facility] Last Admin: 01/05/17 14:17 Dose: 30 mls/hr Memantine (Namenda) 10 mg PO BID [facility] Last Admin: 01/06/17 09:49 Dose: 10 mg Metoprolol Tartrate (Lopressor) 50 mg PO DAILY [facility] Last Admin: 01/06/17 09:50 Dose: 50 mg Oxycodone/Acetaminophen (Percocet 5/325 Mg Tab) 2 tab PO Q4 PRN PRN Reason: Pain, severe (8-10) Stop: 01/08/17 11:30 Last Admin: 01/06/17 04:41 Dose: 2 tab Sitagliptin Phosphate (Januvia) 100 mg PO DAILY [facility] Last Admin: 01/06/17 09:50 Dose: 100 mg Tramadol HCl (Ultram) 100 mg PO Q6 PRN PRN Reason: Pain, moderate (4-7) Last Admin: 01/04/17 21:07 Dose: 100 mg Valsartan (Diovan) 160 mg PO DAILY [facility] Last Admin: 01/06/17 09:49 Dose: 160 mg - Labs Labs: 01/06/17 06:00 01/06/17 06:00 PT 13.9 Seconds (9.8-13.1) H 12/31/16 15:00 INR 1.2 (0.9-1.2) 12/31/16 15:00 APTT 29.4 Seconds (25.6-37.1) 12/31/16 15:00 - Constitutional Appears: Non-toxic, Confused, Cachectic, Chronically Ill - Head Exam Head Exam: NORMOCEPHALIC - Eye Exam Eye Exam: PERRL - ENT Exam ENT Exam: Mucous Membranes Dry - Neck Exam Neck Exam: absent: Lymphadenopathy - Respiratory Exam Respiratory Exam: Decreased Breath Sounds, Clear to Ausculation Bilateral - Cardiovascular Exam Cardiovascular Exam: REGULAR RHYTHM - GI/Abdominal Exam GI & Abdominal Exam: Distended, Soft. absent: Tenderness - Rectal Exam Rectal Exam: Deferred - Exam Exam: NORMAL INSPECTION - Extremities Exam Extremities Exam: Pedal Edema, Tenderness - Back Exam Back Exam: absent: CVA tenderness (L), CVA tenderness (R) Assessment and Plan (1) Cellulitis of foot, left Status: Acute (2) Gangrene of toe of left foot Status: Acute (3) Dementia Status: Chronic (4) Diabetes mellitus Status: Chronic (5) H/O coronary artery bypass surgery Status: Chronic (6) HTN (hypertension) Status: Chronic
--- NOTE | 2017-01-06 15:16 | CP.PCM.DIS ---
Provider - Provider Date of Admission: 12/31/16 15:16 Attending physician: Tavares William MD Time Spent in preparation of Discharge (in minutes): 30 Diagnosis - Discharge Diagnosis (1) Cellulitis of foot, left Status: Acute (2) Gangrene of toe of left foot Status: Acute (3) Diabetes mellitus Status: Chronic Hospital Course - Lab Results Lab Results: Micro Results 01/05/17 12:45 Other: Please Indicate Gram Stain - Final 12/31/16 15:21 Blood-Venous Blood Culture - Final NO GROWTH AFTER 5 DAYS 12/31/16 15:21 Blood-Venous Gram Stain - Final Most Recent Lab Values WBC 9.6 K/uL (4.8-10.8) 01/06/17 06:00 RBC 3.57 Mil/uL (4.40-5.90) L 01/06/17 06:00 Hgb 9.4 g/dL (12.0-18.0) L 01/06/17 06:00 Hct 28.9 % (35.0-51.0) L 01/06/17 06:00 MCV 81.0 fl (80.0-94.0) 01/06/17 06:00 MCH 26.4 pg (27.0-31.0) L 01/06/17 06:00 MCHC 32.6 g/dL (33.0-37.0) L 01/06/17 06:00 RDW 14.7 % (11.5-14.5) H 01/06/17 06:00 Plt Count 146 K/uL (130-400) 01/06/17 06:00 MPV 8.9 fl (7.2-11.7) 12/31/16 15:00 Neut % (Auto) 80.8 % (50.0-75.0) H 12/31/16 15:00 Lymph % (Auto) 12.2 % (20.0-40.0) L 12/31/16 15:00 Borden % (Auto) 6.2 % (0.0-10.0) 12/31/16 15:00 Eos % (Auto) 0.4 % (0.0-4.0) 12/31/16 15:00 Baso % (Auto) 0.4 % (0.0-2.0) 12/31/16 15:00 Neut # 8.9 K/uL (1.8-7.0) H 12/31/16 15:00 Lymph # 1.3 K/uL (1.0-4.3) 12/31/16 15:00 Borden # 0.7 K/uL (0.0-0.8) 12/31/16 15:00 Eos # 0.0 K/uL (0.0-0.7) 12/31/16 15:00 Baso # 0.0 K/uL (0.0-0.2) 12/31/16 15:00 ESR 67 mm/hr (0-20) H 01/01/17 06:30 PT 13.9 Seconds (9.8-13.1) H 12/31/16 15:00 INR 1.2 (0.9-1.2) 12/31/16 15:00 APTT 29.4 Seconds (25.6-37.1) 12/31/16 15:00 Sodium 134 mmol/l (132-148) 01/06/17 06:00 Potassium 3.9 MMOL/L (3.6-5.0) 01/06/17 06:00 Chloride 103 mmol/L (98-107) 01/06/17 06:00 Carbon Dioxide 26 mmol/L (22-30) 01/06/17 06:00 Anion Gap 10 (10-20) 01/06/17 06:00 BUN 9 mg/dl (9-20) 01/06/17 06:00 Creatinine 0.6 mg/dL (0.8-1.5) L 01/06/17 06:00 Est GFR ( Amer) > 60 01/06/17 06:00 Est GFR (Non-Af Amer) > 60 01/06/17 06:00 POC Glucose (mg/dL) 286 mg/dL (65-110) H 01/06/17 11:18 Random Glucose 159 mg/dL (75-110) H 01/06/17 06:00 Hemoglobin A1c 6.5 % (4.2-6.5) 01/01/17 06:30 Calcium 8.3 mg/dL (8.4-10.2) L 01/06/17 06:00 Total Bilirubin 0.7 mg/dl (0.2-1.3) 01/01/17 06:30 AST 21 U/L (17-59) 01/01/17 06:30 ALT 27 U/L (21-72) 01/01/17 06:30 Alkaline Phosphatase 86 U/L (38-126) 01/01/17 06:30 Troponin I 0.0610 ng/mL (0.00-0.120) 01/01/17 06:30 Total Protein 6.2 G/DL (6.3-8.2) L 01/01/17 06:30 Albumin 2.9 g/dL (3.5-5.0) L 01/01/17 06:30 Globulin 3.3 gm/dL (2.2-3.9) 01/01/17 06:30 Albumin/Globulin Ratio 0.9 (1.0-2.1) L 01/01/17 06:30 Triglycerides 78 mg/DL (0-149) 01/01/17 06:30 Cholesterol 111 mg/dL (0-199) 01/01/17 06:30 LDL Cholesterol Direct 54 mg/dL (0-129) 01/01/17 06:30 HDL Cholesterol 34 MG/DL (30-70) 01/01/17 06:30 TSH 3rd Generation 2.59 mIU/ML (0.46-4.68) 01/01/17 06:30 Vancomycin Trough 8.7 ug/mL (5.0-10.0) 01/06/17 06:00 Blood Type O POSITIVE 12/31/16 15:05 Blood Type Confirm O POSITIVE 12/31/16 14:20 Antibody Screen Negative 12/31/16 15:05 BBK History Checked No verified bt 12/31/16 15:05 - Hospital Course Hospital Course: 86 yo male PMHx of CAD with CABG, DM, HTN, hypercholesterolemia, dementia, peripheral vascular disease admitted for left hallux gangrene and localized cellulitis. ID consulted IV abx (vanco/zosyn). Podiatry consulted, scheduled for Left 1st partial ray amputation and bone bx on 01/05/17 due to plavix usage (d /c'ed 6 days prior). Cardiology consulted - cleared from cardiac standpoint. Procedure without complications. Patient progressed well post-operatively. Patient to be discharged to [facility] for further rehabilitation. Discharge Exam - Head Exam Head Exam: ATRAUMATIC, NORMAL INSPECTION, NORMOCEPHALIC - Eye Exam Eye Exam: EOMI, Normal appearance - Respiratory Exam Respiratory Exam: Clear to PA & Lateral, NORMAL BREATHING PATTERN, UNREMARKABLE - Cardiovascular Exam Cardiovascular Exam: REGULAR RHYTHM, RRR, +S1, +S2 - GI/Abdominal Exam GI & Abdominal Exam: Normal Bowel Sounds, Soft. absent: Tenderness - Extremities Exam Extremities exam: normal inspection (left foot in dressing, cdi.) - Neurological Exam Neurological exam: Alert - Psychiatric Exam Psychiatric exam: Normal Affect, Normal Mood - Skin Skin Exam: Dry, Normal Color, Warm Discharge Plan - Discharge Medications Prescriptions: Vancomycin 1 GM [Vancomycin 1GM in Normal Saline Addvantage] 1 gm IVPB DAILY #7 - Follow Up Plan Condition: STABLE Disposition: HOME/ ROUTINE Instructions: Cellulitis (DC), Toe Amputation (DC) Additional Instructions: to be on vanco iv x 7 days. last vanco trough done 01/06 was 8.7 theraputic range. betadine dressings to left foot daily.
[2017-01-06 15:43] VITALS: BP 124/50; PULSE 83; RESP 20; TEMP 99.1; O2SAT 98
== END 2017-01-06 18:20 | DRG 240 ==
LOC: H.ER 14:12 → H.ERHOLD 15:16 → H.TEL 21:20
PROVIDERS: ADMIT Family Medicine; ATTEND Family Medicine
PROC: 0Y6N0Z9 Detachment at Left Foot, Partial 1st Ray, Open Approach (ICD-10-PCS; principal; 2017-01-05 09:45)
DX: E11.52 Type 2 diabetes mellitus with diabetic peripheral angiopathy with gangrene (principal); L89.221 Pressure ulcer of left hip, stage 1; G20 Parkinson's disease; G30.9 Alzheimer's disease, unspecified; F02.80 Dementia in other diseases classified elsewhere, unspecified severity, without behavioral disturbance, psychotic disturbance, mood disturbance, and anxiety; L03.032 Cellulitis of left toe; E78.00 Pure hypercholesterolemia, unspecified; I10 Essential (primary) hypertension; I25.10 Atherosclerotic heart disease of native coronary artery without angina pectoris; M81.0 Age-related osteoporosis without current pathological fracture; Z79.02 Long term (current) use of antithrombotics/antiplatelets; Z85.46 Personal history of malignant neoplasm of prostate; Z95.1 Presence of aortocoronary bypass graft; D64.9 Anemia, unspecified; Z79.84 Long term (current) use of oral hypoglycemic drugs

== ENCOUNTER 2017-02-03 21:15 | Inpatient (IN) | payer MEDICARE, OTHER ==
[2017-02-03 21:15] VITALS: BMI 23.6
--- NOTE | 2017-02-03 22:13 | ED PDOC ---
HPI: Chest Pain Time Seen by Provider: 02/03/17 21:28 Chief Complaint (Nursing): Chest Pain Chief Complaint (Provider): Chest Pain History Per: Patient, EMS History/Exam Limitations: clinical condition (somewhat limited due to patient's dementia) Onset/Duration Of Symptoms: Hrs (1x hour prior to arrival) Current Symptoms Are (Timing): Still Present Severity: Moderate Associated Symptoms: Dyspnea. denies: Nausea, Diaphoresis Additional Complaint(s): 86 year old male with a pertinent medical history of coronary artery disease, hypertension, CABG, diabetes, and dementia is sent to the ED by his usp with complaints of substernal chest pain accompanied by shortness of breath that started 1x hour prior to arrival. Patient was given nitroglycerin , aspirin, and duonebs by EMS. Patient denies having diaphoresis, nausea, and vomiting. Of note: Patient's history is somewhat limited due to patient's dementia. PMD: Not provided. - Risk Factors TAD Risk Factors: Pos: Hypertension Past Medical History Reviewed: Historical Data, Nursing Documentation, Vital Signs Vital Signs: Last Vital Signs Temp 98.5 F 02/04/17 04:48 Pulse 108 H 02/04/17 04:48 Resp 20 02/04/17 04:48 BP 155/85 H 02/04/17 04:48 Pulse Ox 100 02/04/17 04:48 - Medical History PMH: Alzheimer's Disease, Anemia, CAD, Dementia, Diabetes, HTN, Hypercholesterolemia, Malignancy (prostate cancer), Osteoporosis, Parkinson's Disease Denies: Chronic Kidney Disease - Surgical History Surgical History: CABG - Family History Family History: States: Unknown Family Hx - Living Arrangements Living Arrangements: Snf/Assist Lvng - Social History Current smoker - smoking cessation education provided: No Alcohol: None Drugs: Denies - Immunization History Hx Tetanus Toxoid Vaccination: No Hx Influenza Vaccination: No Hx Pneumococcal Vaccination: No - Home Medications Home Medications: Ambulatory Orders Medication Instructions Recorded Donepezil HCl [Aricept Odt] 10 mg PO DAILY 06/30/14 Metformin HCl 1,000 mg PO BID 06/30/14 Metoprolol Tartrate [Lopressor] 50 mg PO DAILY #0 tab 06/14/15 Clopidogrel [Plavix] 75 mg PO DAILY 10/07/16 Valsartan [Diovan] 160 mg PO DAILY 10/07/16 glyBURIDE [Micronase] 5 mg PO DAILY 10/07/16 Memantine [Namenda] 28 mg PO DAILY 12/31/16 Albuterol/Ipratropium [Duoneb 3 3 ml PO Q6 PRN 02/04/17 mg/0.5 mg (3 ml) UD] Epoetin Sheldon [Procrit] 10,000 unit IJ MWF 02/04/17 Ferrous Sulfate [Feosol] 325 mg PO DAILY 02/04/17 Isosorbide Mononitrate [Imdur] 30 mg PO DAILY 02/04/17 Magnesium Hydroxide [Milk Of 30 ml PO DAILY 02/04/17 Magnesia] Megestrol Acetate [Megace] 20 ml PO DAILY 02/04/17 Multivitamin [Multiple Vitamins] 1 tab PO DAILY 02/04/17 Pantoprazole Sodium [Protonix] 1 tab PO DAILY 02/04/17 levoFLOXacin [Levaquin] 750 mg PO DAILY 02/04/17 - Allergies Allergies/Adverse Reactions: Allergies Allergy/AdvReac Type Severity Reaction Status Date / Time No Known Allergies Allergy Verified 12/31/16 14:17 Review of Systems ROS Statement: Except As Marked, All Systems Reviewed And Found Negative Constitutional: Negative for: Sweats Cardiovascular: Positive for: Chest Pain (substernal) Respiratory: Positive for: Shortness of Breath Gastrointestinal: Negative for: Nausea, Vomiting Physical Exam - Reviewed Nursing Documentation Reviewed: Yes Vital Signs Reviewed: Yes - Physical Exam Appears: Positive for: Well, Non-toxic, No Acute Distress Head Exam: Positive for: ATRAUMATIC, NORMOCEPHALIC Skin: Positive for: Warm, Dry, Pallor Neck: Positive for: Normal Cardiovascular/Chest: Positive for: Regular Rate, Rhythm. Negative for: Chest Non Tender Respiratory: Positive for: Normal Breath Sounds. Negative for: Respiratory Distress Extremity: Positive for: Normal ROM, Other (ulcerations to both heels of feet) Neurologic/Psych: Positive for: Alert, Oriented (3x) - Laboratory Results Result Diagrams: 02/03/17 22:26 02/03/17 22:26 - ECG O2 Sat by Pulse Oximetry: 100 (RA) Pulse Ox Interpretation: Normal - Radiology X-Ray: Interpreted by Me, Viewed By Me X-Ray Interpretation: Cardiomegaly, Other (CXR showed cardiomegaly and bilateral pulmonary vascular congestion. ) Medical Decision Making Medical Decision Makin:28 Initial impression: 86 year old male with chest pain and shortness of breath insetting of known coronary artery disease, hypertension, and diabetes. Initial plan: * XRay chest * EKG * labs * bloodwork * cardiac workup * accucheck * reevaluation * Labs reviewed and significant for elevated BNP. Spoke with Dr. Reed who agreed to admit the patient. Diagnosis: CHF Scribe Attestation: Documented by Fawn Wright, acting as a scribe for Robert Palacios MD. Provider Scribe Attestation: All medical record entries made by the Scribe were at my direction and personally dictated by me. I have reviewed the chart and agree that the record accurately reflects my personal performance of the history, physical exam, medical decision making, and the department course for this patient. I have also personally directed, reviewed, and agree with the discharge instructions and disposition. Disposition - Clinical Impression Clinical Impression: Chest pain, CHF (congestive heart failure) - Patient ED Disposition Is Patient to be Admitted: Yes Doctor Will See Patient In The: Hospital Counseled Patient/Family Regarding: Studies Performed, Diagnosis, Need For Followup - Disposition Disposition Time: 22:15 Condition: GUARDED - Pt Status Changed To: Hospital Disposition Of: Observation - POA Present On Arrival: Pressure Ulcer (B/L heel)
[2017-02-03 22:34] LABS: BASO # 0.1 K/uL (0.0-0.2); BASO % 0.7 % (0.0-2.0); EOS # 0.1 K/uL (0.0-0.7); EOS % 1.5 % (0.0-4.0); HEMOGLOBIN 9.4 g/dL (12.0-18.0); LYMPH # 0.7 K/uL (1.0-4.3); LYMPH % 8.4 % (20.0-40.0); MEAN CELL VOLUME 81.1 fl (80.0-94.0); MEAN CORPUSCULAR HEMOGLOBIN 25.4 pg (27.0-31.0); MEAN CORPUSCULAR HGB CONC 31.3 g/dL (33.0-37.0); MONO # 0.6 K/uL (0.0-0.8); MONO % 6.8 % (0.0-10.0); NEUT # 6.7 K/uL (1.8-7.0); NEUT % 82.6 % (50.0-75.0); PLATELET COUNT 174 K/uL (130-400); RED CELL DISTRIBUTION WIDTH 18.3 % (11.5-14.5); WHITE BLOOD COUNT 8.1 K/uL (4.8-10.8)
[2017-02-03 22:47] LABS: ALB/GLOB RATIO 0.7 (1.0-2.1); ALBUMIN 2.6 g/dL (3.5-5.0); ALT/SGPT 39 U/L (21-72); AST/SGOT 51 U/L (17-59); BLOOD UREA NITROGEN 28 mg/dl (9-20); CALCIUM 7.9 mg/dL (8.4-10.2); GFR AFRICAN-AMERICAN > 60; GFR NON-AFRICAN AMERICAN > 60
[2017-02-03 22:55] LABS: B-TYPE NATRIURETIC PEPTIDE 12900 pg/ml (0-900)
[2017-02-03 22:58] LABS: INR 1.3 (0.9-1.2); PARTIAL THROMBOPLASTIN TIME 26.2 Seconds (25.6-37.1); PROTHROMBIN TIME 14.9 Seconds (9.8-13.1)
[2017-02-03 23:06] LABS: BASOPHIL 1 % (0-2); EOSINOPHIL 1 % (0-7); LYMPHOCYTE 9 % (20-50); MONOCYTE 1 % (0-10); NEUTROPHIL 88 % (42-75); TOTAL CELLS COUNTED 100
[2017-02-03 23:07] LABS: PLATELET ESTIMATE NORMAL (NORMAL)
[2017-02-04] MEDS ORDERED: Albuterol-Ipratrop 3 mg / 0.5 (3 ml) UD INH PRN (05:43)
[2017-02-04] MEDS: Insulin Regular 100 units/ml SC SCH ×4 (08:30→22:27)
[2017-02-04] MEDS ORDERED: MULTIVITAMIN PO SCH (09:00)
[2017-02-04] MEDS: Multivitamin With Minerals Tab PO SCH (09:23)
[2017-02-04] MEDS: Potassium Chloride 20 mEq ER Tab PO SCH (09:24)
[2017-02-04] MEDS: Pantoprazole 40 mg EC Tab PO SCH (09:24)
[2017-02-04] MEDS: levoFLOXacin 750 MG TAB PO SCH (09:24)
[2017-02-04] MEDS: Megestrol Acetate 40 mg/ml Cup PO SCH (09:26)
[2017-02-04] MEDS: Magnesium Hydroxide Susp 30 ml UD PO SCH (09:26)
--- NOTE | 2017-02-04 09:44 | CARD ---
APPROVED REPORT EKG Measurement Heart [id number] <Conclusion> Sinus tachycardia with premature atrial complexes and premature ventricular complexes or fusion complexes Left ventricular hypertrophy with QRS widening and repolarization abnormality Abnormal ECG
--- NOTE | 2017-02-04 11:20 | CP.PCM.CON ---
History of Present Illness - History of Present Illness History of Present Illness: 86 YR OLD MALE REFERRED FOR PULMONARY EVALUATION BECAUSE OF CHEST PAINS AND SOB HX OF ASHD-S/P CABG,HTN,DM,PARKINSONS DZ AND DEMENTIA CONTINUES TO COUGH AND IS DYSPNEIC AT REST Past Patient History - Infectious Disease Hx of Infectious Diseases: None - Past Medical History & Family History Past Medical History?: Yes - Past Social History Smoking Status: Never Smoked - CARDIAC Hx Hypercholesterolemia: Yes Hx Hypertension: Yes - PULMONARY Hx Respiratory Disorders: No - NEUROLOGICAL Hx Alzheimer's Disease: Yes Hx Dementia: Yes Hx Parkinson's Disease: Yes - HEENT Hx HEENT Problems: No - RENAL Hx Chronic Kidney Disease: No - ENDOCRINE/METABOLIC Hx Endocrine Disorders: Yes Hx Diabetes Mellitus Type 2: Yes - HEMATOLOGICAL/ONCOLOGICAL Hx AIDS: No Hx Anemia: Yes Hx Human Immunodeficiency Virus (HIV): No - INTEGUMENTARY Hx Dermatological Problems: Yes (GANGRENE LEFT FOOT) - MUSCULOSKELETAL/RHEUMATOLOGICAL Hx Falls: No Hx Osteoporosis: Yes - GASTROINTESTINAL Hx Gastrointestinal Disorders: Yes HX Swallowing Problems: Yes - GENITOURINARY/GYNECOLOGICAL Hx Genitourinary Disorders: Yes Hx Prostate Cancer: Yes - PSYCHIATRIC Hx Psychophysiologic Disorder: Yes Hx Psychosis: Yes Hx Substance Use: No - SURGICAL HISTORY Hx Coronary Artery Bypass Graft: Yes - ANESTHESIA Hx Anesthesia: Yes Hx Anesthesia Reactions: No Hx Malignant Hyperthermia: No Has any member of the family had a problem w/ anesthesia?: No Meds Allergies/Adverse Reactions: Allergies Allergy/AdvReac Type Severity Reaction Status Date / Time No Known Allergies Allergy Verified 12/31/16 14:17 - Medications Medications: Current Medications Acetaminophen (Tylenol 325mg Tab) 650 mg PO Q4 PRN PRN Reason: Fever >100.4 F Last Admin: 02/04/17 09:33 Dose: 650 mg Albuterol/Ipratropium (Duoneb 3 Mg/0.5 Mg (3 Ml) Ud) 3 ml INH Q4 [facility] Clopidogrel Bisulfate (Plavix) 75 mg PO DAILY [facility] Last Admin: 02/04/17 09:25 Dose: 75 mg Donepezil HCl (Aricept) 10 mg PO DAILY [facility] Last Admin: 02/04/17 09:24 Dose: 10 mg Epoetin Sheldon (Procrit) 10,000 unit SC [facility] Ferrous Sulfate (Feosol) 325 mg PO DAILY [facility] Last Admin: 02/04/17 09:25 Dose: 325 mg Furosemide (Lasix) 40 mg IV Q12 [facility] Glyburide (Micronase) 5 mg PO DAILY [facility] Insulin Human Regular (Humulin R) 0 units SC ACHS [facility] PRN Reason: Protocol Last Admin: 02/04/17 08:30 Dose: Not Given Isosorbide Mononitrate (Imdur) 30 mg PO DAILY [facility] Last Admin: 02/04/17 09:24 Dose: 30 mg Levofloxacin (Levaquin) 750 mg PO DAILY [facility] Last Admin: 02/04/17 09:24 Dose: 750 mg Magnesium Hydroxide (Milk Of Magnesia) 30 ml PO DAILY [facility] Last Admin: 02/04/17 09:26 Dose: 30 ml Megestrol Acetate (Megace) 800 mg PO DAILY [facility] Last Admin: 02/04/17 09:26 Dose: 800 mg Memantine (Namenda) 10 mg PO BID [facility] Metformin HCl (Glucophage) 1,000 mg PO BID [facility] Last Admin: 02/04/17 09:24 Dose: 1,000 mg Metoprolol Tartrate (Lopressor) 50 mg PO DAILY [facility] Last Admin: 02/04/17 09:24 Dose: 50 mg Multivitamins/Minerals (Therapeutic-M Tab) 1 tab PO DAILY [facility] Last Admin: 02/04/17 09:23 Dose: 1 tab Pantoprazole Sodium (Protonix Ec Tab) 40 mg PO DAILY [facility] Last Admin: 02/04/17 09:24 Dose: 40 mg Potassium Chloride (K-Dur 20 Meq Er Tab) 20 meq PO DAILY [facility] Last Admin: 02/04/17 09:24 Dose: 20 meq Valsartan (Diovan) 160 mg PO DAILY [facility] Last Admin: 02/04/17 09:24 Dose: 160 mg Physical Exam - Constitutional Appears: In Acute Distress, Chronically Ill - Head Exam Head Exam: ATRAUMATIC, NORMAL INSPECTION, NORMOCEPHALIC - Eye Exam Eye Exam: EOMI, Normal appearance, PERRL Pupil Exam: NORMAL ACCOMODATION, PERRL - ENT Exam ENT Exam: Mucous Membranes Moist, Normal Exam - Neck Exam Neck exam: Positive for: Normal Inspection - Respiratory Exam Respiratory Exam: Decreased Breath Sounds, Prolonged Expiratory Phase, Rales - Cardiovascular Exam Cardiovascular Exam: Tachycardia - GI/Abdominal Exam GI & Abdominal Exam: Normal Bowel Sounds, Soft. absent: Tenderness - Rectal Exam Rectal Exam: NORMAL INSPECTION - Extremities Exam Extremities exam: Positive for: normal inspection - Back Exam Back exam: NORMAL INSPECTION - Neurological Exam Neurological exam: Alert, CN II-XII Intact, Reflexes Normal - Psychiatric Exam Psychiatric exam: Normal Affect, Normal Mood - Skin Skin Exam: Dry, Intact, Normal Color, Warm Results - Vital Signs Recent Vital Signs: Last Vital Signs Temp 100.6 F H 02/04/17 09:33 Pulse 108 H 02/04/17 09:24 Resp 18 02/04/17 08:32 BP 115/61 02/04/17 09:24 Pulse Ox 100 02/04/17 08:32 - Labs Result Diagrams: 02/03/17 22:26 02/03/17 22:26 Labs: Laboratory Results - last 24 hr 02/03/17 02/03/17 02/03/17 22:26 22:26 22:26 WBC 8.1 RBC 3.70 L Hgb 9.4 L Hct 30.0 L MCV 81.1 MCH 25.4 L MCHC 31.3 L RDW 18.3 H Plt Count 174 MPV 9.0 Neut % (Auto) 82.6 H Lymph % (Auto) 8.4 L [place] % (Auto) 6.8 Eos % (Auto) 1.5 Baso % (Auto) 0.7 Neut # 6.7 Lymph # 0.7 L Sebastian # 0.6 Eos # 0.1 Baso # 0.1 Neutrophils % (Manual) 88 H Lymphocytes % (Manual) 9 L Monocytes % (Manual) 1 Eosinophils % (Manual) 1 Basophils % (Manual) 1 Platelet Estimate Normal PT 14.9 H INR 1.3 H APTT 26.2 Sodium 144 Potassium 4.0 Chloride 113 H Carbon Dioxide 23 Anion Gap 12 BUN 28 H Creatinine 1.1 Est GFR ( Amer) > 60 Est GFR (Non-Af Amer) > 60 POC Glucose (mg/dL) Random Glucose 200 H Lactic Acid Calcium 7.9 L Total Bilirubin 0.6 AST 51 ALT 39 Alkaline Phosphatase 117 Troponin I 0.1160 NT-Pro-B Natriuret Pep 48041 H Total Protein 6.1 L Albumin 2.6 L Globulin 3.5 Albumin/Globulin Ratio 0.7 L 02/03/17 02/04/17 02/04/17 22:26 05:22 08:00 WBC RBC Hgb Hct MCV MCH MCHC RDW Plt Count MPV Neut % (Auto) Lymph % (Auto) [place] % (Auto) Eos % (Auto) Baso % (Auto) Neut # Lymph # [place] # Eos # Baso # Neutrophils % (Manual) Lymphocytes % (Manual) Monocytes % (Manual) Eosinophils % (Manual) Basophils % (Manual) Platelet Estimate PT INR APTT Sodium Potassium Chloride Carbon Dioxide Anion Gap BUN Creatinine Est GFR ( Amer) Est GFR (Non-Af Amer) POC Glucose (mg/dL) 145 H Random Glucose Lactic Acid 3.4 H Calcium Total Bilirubin AST ALT Alkaline Phosphatase Troponin I 0.1670 H* NT-Pro-B Natriuret Pep Total Protein Albumin Globulin Albumin/Globulin Ratio 02/04/17 10:00 WBC RBC Hgb Hct MCV MCH MCHC RDW Plt Count MPV Neut % (Auto) Lymph % (Auto) [place] % (Auto) Eos % (Auto) Baso % (Auto) Neut # Lymph # [place] # Eos # Baso # Neutrophils % (Manual) Lymphocytes % (Manual) Monocytes % (Manual) Eosinophils % (Manual) Basophils % (Manual) Platelet Estimate PT INR APTT Sodium Potassium Chloride Carbon Dioxide Anion Gap BUN Creatinine Est GFR ( Amer) Est GFR (Non-Af Amer) POC Glucose (mg/dL) Random Glucose Lactic Acid 2.3 H Calcium Total Bilirubin AST ALT Alkaline Phosphatase Troponin I NT-Pro-B Natriuret Pep Total Protein Albumin Globulin Albumin/Globulin Ratio Assessment & Plan - Assessment and Plan (Free Text) Assessment: ACUTE RESPIRATORY FAILURE CHF WITH SUPERIMPOSED PNEUMONIA HTN DM TYPE 2 ACUTE MYOCARDIAL INFARCTION PARKINSONS DZ Plan: AGREE WITH PRESENT RX INCREASE DUONEB TO Q4H AND LASIX TO BID O2 VIA NRB MAY NEED BIPAP RX IF SOB WORSENS WILL FOLLOW WITH YOU
[2017-02-04] MEDS ORDERED: Sodium Chloride 3% for Inhalation 4 ML VIAL.NEB IH PRN (11:40)
[2017-02-04] MEDS: Albuterol-Ipratrop 3 mg / 0.5 (3 ml) UD INH SCH ×4 (11:49→23:45)
--- NOTE | 2017-02-04 12:35 | RAD ---
HISTORY: chest pain COMPARISON: Comparison chest 12/31/2016. FINDINGS: LUNGS: Note that the study is somewhat limited due to patient rotation to the left side Diffuse bilateral pulmonary infiltrates, most significant and confluent in appearance throughout the right florence thorax. Findings main represent pulmonary edema/ CHF and or pneumonia. Clinical correlation recommended. PLEURA: No significant pleural effusion identified, no pneumothorax apparent. CARDIOVASCULAR: Sternotomy wires and CABG clips. OSSEOUS STRUCTURES: No significant abnormalities. VISUALIZED UPPER ABDOMEN: Normal. OTHER FINDINGS: None. IMPRESSION: Slightly limited study due to patient rotation as above. Diffuse bilateral pulmonary infiltrates, most significant and confluent in appearance throughout the right hemithorax. Findings may represent pulmonary edema/ CHF and or pneumonia. Clinical correlation recommended.
--- NOTE | 2017-02-04 13:26 | CP.PCM.CON ---
History of Present Illness - History of Present Illness History of Present Illness: I was asked to evaluate patient by Dr. William. Patient is a 86 year old male with PMH HTN, hypercholesterolemia s/p CABG, COPD who [facility] with [facility]. The patient cannot give history due to dementia. By report there was an episode of substernal chest pressure which was nonradiating and associated with dyspnea. The patient is currently in 4N on a nonrebreather. He is DNR/DNI. Review of Systems - Review of Systems Systems not reviewed;Unavailable: Dementia Past Patient History - Infectious Disease Hx of Infectious Diseases: None - Past Medical History & Family History Past Medical History?: Yes - Past Social History Smoking Status: Never Smoked - CARDIAC Hx Hypercholesterolemia: Yes Hx Hypertension: Yes - PULMONARY Hx Respiratory Disorders: No - NEUROLOGICAL Hx Alzheimer's Disease: Yes Hx Dementia: Yes Hx Parkinson's Disease: Yes - HEENT Hx HEENT Problems: No - RENAL Hx Chronic Kidney Disease: No - ENDOCRINE/METABOLIC Hx Endocrine Disorders: Yes Hx Diabetes Mellitus Type 2: Yes - HEMATOLOGICAL/ONCOLOGICAL Hx AIDS: No Hx Anemia: Yes Hx Human Immunodeficiency Virus (HIV): No - INTEGUMENTARY Hx Dermatological Problems: Yes (GANGRENE LEFT FOOT) - MUSCULOSKELETAL/RHEUMATOLOGICAL Hx Falls: No Hx Osteoporosis: Yes - GASTROINTESTINAL Hx Gastrointestinal Disorders: Yes HX Swallowing Problems: Yes - GENITOURINARY/GYNECOLOGICAL Hx Genitourinary Disorders: Yes Hx Prostate Cancer: Yes - PSYCHIATRIC Hx Psychophysiologic Disorder: Yes Hx Psychosis: Yes Hx Substance Use: No - SURGICAL HISTORY Hx Coronary Artery Bypass Graft: Yes - ANESTHESIA Hx Anesthesia: Yes Hx Anesthesia Reactions: No Hx Malignant Hyperthermia: No Has any member of the family had a problem w/ anesthesia?: No Meds Allergies/Adverse Reactions: Allergies Allergy/AdvReac Type Severity Reaction Status Date / Time No Known Allergies Allergy Verified 12/31/16 14:17 - Medications Medications: Current Medications Acetaminophen (Tylenol 325mg Tab) 650 mg PO Q4 PRN PRN Reason: Fever >100.4 F Last Admin: 02/04/17 09:33 Dose: 650 mg Albuterol/Ipratropium (Duoneb 3 Mg/0.5 Mg (3 Ml) Ud) 3 ml INH RQ4 [facility] Last Admin: 02/04/17 11:49 Dose: 3 ml Clopidogrel Bisulfate (Plavix) 75 mg PO DAILY [facility] Last Admin: 02/04/17 09:25 Dose: 75 mg Donepezil HCl (Aricept) 10 mg PO DAILY [facility] Last Admin: 02/04/17 09:24 Dose: 10 mg Epoetin Sheldon (Procrit) 10,000 unit SC MWF [facility] Ferrous Sulfate (Feosol) 325 mg PO DAILY [facility] Last Admin: 02/04/17 09:25 Dose: 325 mg Furosemide (Lasix) 40 mg IV Q12 [facility] Glyburide (Micronase) 5 mg PO DAILY [facility] Last Admin: 02/04/17 11:32 Dose: 5 mg Insulin Human Regular (Humulin R) 0 units SC [facility] PRN Reason: Protocol Last Admin: 02/04/17 08:30 Dose: Not Given Isosorbide Mononitrate (Imdur) 30 mg PO DAILY [facility] Last Admin: 02/04/17 09:24 Dose: 30 mg Levofloxacin (Levaquin) 750 mg PO DAILY [facility] Last Admin: 02/04/17 09:24 Dose: 750 mg Magnesium Hydroxide (Milk Of Magnesia) 30 ml PO DAILY [facility] Last Admin: 02/04/17 09:26 Dose: 30 ml Megestrol Acetate (Megace) 800 mg PO DAILY [facility] Last Admin: 02/04/17 09:26 Dose: 800 mg Memantine (Namenda) 10 mg PO BID [facility] Last Admin: 02/04/17 11:32 Dose: 10 mg Metformin HCl (Glucophage) 1,000 mg PO BID [facility] Last Admin: 02/04/17 09:24 Dose: 1,000 mg Metoprolol Tartrate (Lopressor) 50 mg PO DAILY [facility] Last Admin: 02/04/17 09:24 Dose: 50 mg Multivitamins/Minerals (Therapeutic-M Tab) 1 tab PO DAILY [facility] Last Admin: 02/04/17 09:23 Dose: 1 tab Pantoprazole Sodium (Protonix Ec Tab) 40 mg PO DAILY [facility] Last Admin: 02/04/17 09:24 Dose: 40 mg Potassium Chloride (K-Dur 20 Meq Er Tab) 20 meq PO DAILY [facility] Last Admin: 02/04/17 09:24 Dose: 20 meq Valsartan (Diovan) 160 mg PO DAILY [facility] Last Admin: 02/04/17 09:24 Dose: 160 mg Physical Exam - Constitutional Appears: Chronically Ill - Head Exam Head Exam: NORMAL INSPECTION - Eye Exam Eye Exam: Normal appearance - ENT Exam ENT Exam: Mucous Membranes Moist - Neck Exam Neck exam: Positive for: Normal Inspection - Respiratory Exam Respiratory Exam: Decreased Breath Sounds, Rales - Cardiovascular Exam Cardiovascular Exam: REGULAR RHYTHM - GI/Abdominal Exam GI & Abdominal Exam: Hypoactive Bowel Sounds - Rectal Exam Rectal Exam: Deferred - Extremities Exam Extremities exam: Positive for: pedal edema - Back Exam Back exam: NORMAL INSPECTION - Neurological Exam Neurological exam: Alert - Psychiatric Exam Psychiatric exam: Normal Affect - Skin Skin Exam: Normal Color Results - Vital Signs Recent Vital Signs: Last Vital Signs Temp 98.6 F 02/04/17 12:00 Pulse 95 H 02/04/17 12:00 Resp 18 02/04/17 12:00 BP 102/65 02/04/17 12:00 Pulse Ox 95 02/04/17 12:00 - Labs Result Diagrams: 02/03/17 22:26 02/03/17 22:26 Labs: Laboratory Results - last 24 hr 02/03/17 02/03/17 02/03/17 22:26 22:26 22:26 WBC 8.1 RBC 3.70 L Hgb 9.4 L Hct 30.0 L MCV 81.1 MCH 25.4 L MCHC 31.3 L RDW 18.3 H Plt Count 174 MPV 9.0 Neut % (Auto) 82.6 H Lymph % (Auto) 8.4 L [place] % (Auto) 6.8 Eos % (Auto) 1.5 Baso % (Auto) 0.7 Neut # 6.7 Lymph # 0.7 L [place] # 0.6 Eos # 0.1 Baso # 0.1 Neutrophils % (Manual) 88 H Lymphocytes % (Manual) 9 L Monocytes % (Manual) 1 Eosinophils % (Manual) 1 Basophils % (Manual) 1 Platelet Estimate Normal PT 14.9 H INR 1.3 H APTT 26.2 Sodium 144 Potassium 4.0 Chloride 113 H Carbon Dioxide 23 Anion Gap 12 BUN 28 H Creatinine 1.1 Est GFR ( Amer) > 60 Est GFR (Non-Af Amer) > 60 POC Glucose (mg/dL) Random Glucose 200 H Lactic Acid Calcium 7.9 L Total Bilirubin 0.6 AST 51 ALT 39 Alkaline Phosphatase 117 Troponin I 0.1160 NT-Pro-B Natriuret Pep 05273 H Total Protein 6.1 L Albumin 2.6 L Globulin 3.5 Albumin/Globulin Ratio 0.7 L 02/03/17 02/04/17 02/04/17 22:26 05:22 08:00 WBC RBC Hgb Hct MCV MCH MCHC RDW Plt Count MPV Neut % (Auto) Lymph % (Auto) [place] % (Auto) Eos % (Auto) Baso % (Auto) Neut # Lymph # [place] # Eos # Baso # Neutrophils % (Manual) Lymphocytes % (Manual) Monocytes % (Manual) Eosinophils % (Manual) Basophils % (Manual) Platelet Estimate PT INR APTT Sodium Potassium Chloride Carbon Dioxide Anion Gap BUN Creatinine Est GFR ( Amer) Est GFR (Non-Af Amer) POC Glucose (mg/dL) 145 H Random Glucose Lactic Acid 3.4 H Calcium Total Bilirubin AST ALT Alkaline Phosphatase Troponin I 0.1670 H* NT-Pro-B Natriuret Pep Total Protein Albumin Globulin Albumin/Globulin Ratio 02/04/17 02/04/17 10:00 11:21 WBC RBC Hgb Hct MCV MCH MCHC RDW Plt Count MPV Neut % (Auto) Lymph % (Auto) [place] % (Auto) Eos % (Auto) Baso % (Auto) Neut # Lymph # [place] # Eos # Baso # Neutrophils % (Manual) Lymphocytes % (Manual) Monocytes % (Manual) Eosinophils % (Manual) Basophils % (Manual) Platelet Estimate PT INR APTT Sodium Potassium Chloride Carbon Dioxide Anion Gap BUN Creatinine Est GFR ( Amer) Est GFR (Non-Af Amer) POC Glucose (mg/dL) 201 H Random Glucose Lactic Acid 2.3 H Calcium Total Bilirubin AST ALT Alkaline Phosphatase Troponin I NT-Pro-B Natriuret Pep Total Protein Albumin Globulin Albumin/Globulin Ratio - EKG Data EKG Interpreted by: Myself Assessment & Plan (1) CHF (congestive heart failure) Assessment and Plan: Likely acute on chronic systolic dysfunction. The patient will require continued diuretic therapy Status: Acute (2) Coronary artery disease Assessment and Plan: history of CABG. elevated troponin may also be in the setting of acute CHF. conservative medical therapy Status: Acute (3) HTN (hypertension) Assessment and Plan: mange blood pressure. Status: Chronic
[2017-02-04] MEDS ORDERED: Povidone Iodine Topical 10% Sol ONE (13:31)
--- NOTE | 2017-02-04 18:53 | CP.PCM.CON ---
History of Present Illness - History of Present Illness History of Present Illness: 86 y/o male with PMHx of DMII, PVD, HTN, hypercholesterolemia, alzheimers, malignancy, osteoporosis and parkinson's seen at bedside with Dr. 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 Pt is in NAD and is alert and awake. Pt was seen with a nonrebreather. Pt's dressing is clean, dry and intact. Pt appears to be resting comfortably in his bed with no distress. PMHx: DMII, PVD, HTN, hypercholesterolemia, alzheimers, malignancy, osteoporosis and parkinson's PSHx: Partial 1st ray amputation on Left foot, CABG SHx: denies Allergies: N.K.D.A Review of Systems - Constitutional Constitutional: As Per HPI Past Patient History - Infectious Disease Hx of Infectious Diseases: None - Past Medical History & Family History Past Medical History?: Yes - Past Social History Smoking Status: Never Smoked - CARDIAC Hx Hypercholesterolemia: Yes Hx Hypertension: Yes - PULMONARY Hx Respiratory Disorders: No - NEUROLOGICAL Hx Alzheimer's Disease: Yes Hx Dementia: Yes Hx Parkinson's Disease: Yes - HEENT Hx HEENT Problems: No - RENAL Hx Chronic Kidney Disease: No - ENDOCRINE/METABOLIC Hx Endocrine Disorders: Yes Hx Diabetes Mellitus Type 2: Yes - HEMATOLOGICAL/ONCOLOGICAL Hx AIDS: No Hx Anemia: Yes Hx Human Immunodeficiency Virus (HIV): No - INTEGUMENTARY Hx Dermatological Problems: Yes (GANGRENE LEFT FOOT) - MUSCULOSKELETAL/RHEUMATOLOGICAL Hx Falls: No Hx Osteoporosis: Yes - GASTROINTESTINAL Hx Gastrointestinal Disorders: Yes HX Swallowing Problems: Yes - GENITOURINARY/GYNECOLOGICAL Hx Genitourinary Disorders: Yes Hx Prostate Cancer: Yes - PSYCHIATRIC Hx Psychophysiologic Disorder: Yes Hx Psychosis: Yes Hx Substance Use: No - SURGICAL HISTORY Hx Coronary Artery Bypass Graft: Yes - ANESTHESIA Hx Anesthesia: Yes Hx Anesthesia Reactions: No Hx Malignant Hyperthermia: No Has any member of the family had a problem w/ anesthesia?: No Meds Allergies/Adverse Reactions: Allergies Allergy/AdvReac Type Severity Reaction Status Date / Time No Known Allergies Allergy Verified 12/31/16 14:17 - Medications Medications: Current Medications Acetaminophen (Tylenol 325mg Tab) 650 mg PO Q4 PRN PRN Reason: Fever >100.4 F Last Admin: 02/04/17 09:33 Dose: 650 mg Albuterol/Ipratropium (Duoneb 3 Mg/0.5 Mg (3 Ml) Ud) 3 ml INH RQ4 [facility] Last Admin: 02/04/17 15:55 Dose: 3 ml Clopidogrel Bisulfate (Plavix) 75 mg PO DAILY [facility] Last Admin: 02/04/17 09:25 Dose: 75 mg Donepezil HCl (Aricept) 10 mg PO DAILY [facility] Last Admin: 02/04/17 09:24 Dose: 10 mg Epoetin Sheldon (Procrit) 10,000 unit SC MWF [facility] Ferrous Sulfate (Feosol) 325 mg PO DAILY [facility] Last Admin: 02/04/17 09:25 Dose: 325 mg Furosemide (Lasix) 40 mg IV Q12 [facility] Glyburide (Micronase) 5 mg PO DAILY [facility] Last Admin: 02/04/17 11:32 Dose: 5 mg Ceftriaxone Sodium 1 gm/ (Sodium Chloride) 100 mls @ 100 mls/hr IVPB DAILY [facility] Insulin Human Regular (Humulin R) 0 units SC [facility] PRN Reason: Protocol Last Admin: 02/04/17 17:11 Dose: 2 units Isosorbide Mononitrate (Imdur) 30 mg PO DAILY [facility] Last Admin: 02/04/17 09:24 Dose: 30 mg Levofloxacin (Levaquin) 750 mg PO DAILY [facility] Last Admin: 02/04/17 09:24 Dose: 750 mg Magnesium Hydroxide (Milk Of Magnesia) 30 ml PO DAILY [facility] Last Admin: 02/04/17 09:26 Dose: 30 ml Megestrol Acetate (Megace) 800 mg PO DAILY [facility] Last Admin: 02/04/17 09:26 Dose: 800 mg Memantine (Namenda) 10 mg PO BID [facility] Last Admin: 02/04/17 17:11 Dose: 10 mg Metformin HCl (Glucophage) 1,000 mg PO BID [facility] Last Admin: 02/04/17 17:11 Dose: 1,000 mg Metoprolol Tartrate (Lopressor) 50 mg PO DAILY [facility] Last Admin: 02/04/17 09:24 Dose: 50 mg Multivitamins/Minerals (Therapeutic-M Tab) 1 tab PO DAILY [facility] Last Admin: 02/04/17 09:23 Dose: 1 tab Pantoprazole Sodium (Protonix Ec Tab) 40 mg PO DAILY [facility] Last Admin: 07/08/17 09:24 Dose: 40 mg Potassium Chloride (K-Dur 20 Meq Er Tab) 20 meq PO DAILY [facility] Last Admin: 02/04/17 09:24 Dose: 20 meq Valsartan (Diovan) 160 mg PO DAILY [facility] Last Admin: 02/04/17 09:24 Dose: 160 mg Physical Exam - Constitutional Appears: Well, Non-toxic, No Acute Distress - Extremities Exam Additional comments: Left Lower Extremity focused: VASC: DP pulses are non-palpable, PT pulses are 1/4, CATTLE TRADER: < 4 sec to 4 digits, TG: cool to cool, no pitting or non-pitting edema noted DERM: dry necrosis with hyperpigmented skin noted on the distal medial aspect of the forefoot at the surgical site, no active drainage noted, no purulence, no dehiscence noted, surgical sutures are intact, no malodor, no surrounding erythema, no clinical suspicion of active infection NEURO: Protective sensation diminished ORTHO: hallux amputation noted, no pain on palpation of previously surgical site - Neurological Exam Neurological exam: Alert - Psychiatric Exam Psychiatric exam: Normal Affect, Normal Mood Results - Vital Signs Recent Vital Signs: Last Vital Signs Temp 98.3 F 02/04/17 16:00 Pulse 81 02/04/17 16:00 Resp 18 02/04/17 16:00 BP 91/50 L 02/04/17 16:00 Pulse Ox 100 02/04/17 16:00 - Labs Result Diagrams: 02/03/17 22:26 02/03/17 22:26 Assessment & Plan - Assessment and Plan (Free Text) Assessment: 86 y/o male seen at bedside for 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
--- NOTE | 2017-02-05 00:07 | CP.PCM.PN ---
Subjective - Date & Time of Evaluation Date of Evaluation: 02/04/17 Time of Evaluation: 11:55 - Subjective Subjective: I D NOTE HAVE REVIEWED CHART WOULD D/C ROCEPHEN START CLINDAMYCIN WILL SEE NELSY Objective - Vital Signs/Intake and Output Vital Signs (last 24 hours): Temp Pulse Resp BP Pulse Ox 98.7 F 90 18 96/54 L 98 02/04/17 20:00 02/04/17 20:00 02/04/17 20:00 02/04/17 21:22 02/04/17 20:00 Intake and Output: 02/04/17 02/05/17 18:59 06:59 Intake Total 500 Balance 500 - Medications Medications: Current Medications Acetaminophen (Tylenol 325mg Tab) 650 mg PO Q4 PRN PRN Reason: Fever >100.4 F Last Admin: 02/04/17 09:33 Dose: 650 mg Albuterol/Ipratropium (Duoneb 3 Mg/0.5 Mg (3 Ml) Ud) 3 ml INH RQ4 [facility] Last Admin: 02/04/17 23:45 Dose: 3 ml Clopidogrel Bisulfate (Plavix) 75 mg PO DAILY [facility] Last Admin: 02/04/17 09:25 Dose: 75 mg Donepezil HCl (Aricept) 10 mg PO DAILY [facility] Last Admin: 02/04/17 09:24 Dose: 10 mg Epoetin Sheldon (Procrit) 10,000 unit SC MWF [facility] Ferrous Sulfate (Feosol) 325 mg PO DAILY [facility] Last Admin: 02/04/17 09:25 Dose: 325 mg Furosemide (Lasix) 40 mg IV Q12 [facility] Last Admin: 02/04/17 21:22 Dose: Not Given Glyburide (Micronase) 5 mg PO DAILY [facility] Last Admin: 02/04/17 11:32 Dose: 5 mg Clindamycin Phosphate 600 mg/ (Sodium Chloride) 54 mls @ 54 mls/hr IVPB Q8 [facility] Insulin Human Regular (Humulin R) 0 units SC ACHS [facility] PRN Reason: Protocol Last Admin: 02/04/17 22:27 Dose: Not Given Isosorbide Mononitrate (Imdur) 30 mg PO DAILY [facility] Last Admin: 02/04/17 09:24 Dose: 30 mg Levofloxacin (Levaquin) 750 mg PO DAILY [facility] Last Admin: 02/04/17 09:24 Dose: 750 mg Magnesium Hydroxide (Milk Of Magnesia) 30 ml PO DAILY [facility] Last Admin: 02/04/17 09:26 Dose: 30 ml Megestrol Acetate (Megace) 800 mg PO DAILY [facility] Last Admin: 02/04/17 09:26 Dose: 800 mg Memantine (Namenda) 10 mg PO BID [facility] Last Admin: 02/04/17 17:11 Dose: 10 mg Metformin HCl (Glucophage) 1,000 mg PO BID [facility] Last Admin: 02/04/17 17:11 Dose: 1,000 mg Metoprolol Tartrate (Lopressor) 50 mg PO DAILY [facility] Last Admin: 02/04/17 09:24 Dose: 50 mg Multivitamins/Minerals (Therapeutic-M Tab) 1 tab PO DAILY [facility] Last Admin: 02/04/17 09:23 Dose: 1 tab Pantoprazole Sodium (Protonix Ec Tab) 40 mg PO DAILY [facility] Last Admin: 02/04/17 09:24 Dose: 40 mg Potassium Chloride (K-Dur 20 Meq Er Tab) 20 meq PO DAILY [facility] Last Admin: 02/04/17 09:24 Dose: 20 meq Valsartan (Diovan) 160 mg PO DAILY [facility] Last Admin: 02/04/17 09:24 Dose: 160 mg - Labs Labs: PT 14.9 Seconds (9.8-13.1) H 02/03/17 22:26 INR 1.3 (0.9-1.2) H 02/03/17 22:26 APTT 26.2 Seconds (25.6-37.1) 02/03/17 22:26
[2017-02-05] MEDS: Albuterol-Ipratrop 3 mg / 0.5 (3 ml) UD INH SCH ×7 (04:52→23:20)
[2017-02-05] MEDS: Insulin Regular 100 units/ml SC SCH ×4 (06:38→22:19)
[2017-02-05 07:31] LABS: BASO % 0.3 % (0.0-2.0); EOS # 0.1 K/uL (0.0-0.7); EOS % 0.8 % (0.0-4.0); HEMOGLOBIN 8.5 g/dL (12.0-18.0); LYMPH # 0.7 K/uL (1.0-4.3); LYMPH % 8.6 % (20.0-40.0); MEAN CELL VOLUME 79.8 fl (80.0-94.0); MEAN CORPUSCULAR HEMOGLOBIN 25.2 pg (27.0-31.0); MEAN CORPUSCULAR HGB CONC 31.6 g/dL (33.0-37.0); MEAN PLATELET VOLUME 8.8 fl (7.2-11.7); MONO # 0.5 K/uL (0.0-0.8); MONO % 5.8 % (0.0-10.0); NEUT # 7.3 K/uL (1.8-7.0); NEUT % 84.5 % (50.0-75.0); RBC 3.38 Mil/uL (4.40-5.90); RED CELL DISTRIBUTION WIDTH 18.4 % (11.5-14.5); WHITE BLOOD COUNT 8.6 K/uL (4.8-10.8)
[2017-02-05 07:54] LABS: ALB/GLOB RATIO 0.7 (1.0-2.1); ALBUMIN 2.5 g/dL (3.5-5.0); ALT/SGPT 25 U/L (21-72); AST/SGOT 22 U/L (17-59); BLOOD UREA NITROGEN 34 mg/dl (9-20); CALCIUM 8.2 mg/dL (8.4-10.2); GFR AFRICAN-AMERICAN > 60; GFR NON-AFRICAN AMERICAN 53
[2017-02-05] MEDS: Megestrol Acetate 40 mg/ml Cup PO SCH (08:57)
[2017-02-05] MEDS: levoFLOXacin 750 MG TAB PO SCH (08:58)
[2017-02-05] MEDS: Multivitamin With Minerals Tab PO SCH (08:59)
[2017-02-05] MEDS: Potassium Chloride 20 mEq ER Tab PO SCH (08:59)
[2017-02-05] MEDS: Pantoprazole 40 mg EC Tab PO SCH (08:59)
[2017-02-05] MEDS: Magnesium Hydroxide Susp 30 ml UD PO SCH (09:04)
[2017-02-05] MEDS ORDERED: Labetalol 5 mg/ml Inj 20ML IVP STA (10:44)
[2017-02-05] MEDS ORDERED: Metoprolol 1 mg/ml Inj IVP ONE ×2 (10:46→10:51)
--- NOTE | 2017-02-05 10:47 | CP.PCM.PN ---
Subjective - Date & Time of Evaluation Date of Evaluation: 02/05/17 Time of Evaluation: 10:48 - Subjective Subjective: very dyspneic and tachycardic restless Objective - Vital Signs/Intake and Output Vital Signs (last 24 hours): Temp Pulse Resp BP Pulse Ox 99.9 F H 125 H 18 123/68 99 02/05/17 08:00 02/05/17 10:29 02/05/17 08:00 02/05/17 10:30 02/05/17 08:00 - Medications Medications: Current Medications Acetaminophen (Tylenol 325mg Tab) 650 mg PO Q4 PRN PRN Reason: Fever >100.4 F Last Admin: 02/04/17 09:33 Dose: 650 mg Albuterol/Ipratropium (Duoneb 3 Mg/0.5 Mg (3 Ml) Ud) 3 ml INH RQ4 [facility] Last Admin: 02/05/17 08:00 Dose: 3 ml Clopidogrel Bisulfate (Plavix) 75 mg PO DAILY [facility] Last Admin: 02/05/17 08:59 Dose: 75 mg Donepezil HCl (Aricept) 10 mg PO DAILY [facility] Last Admin: 02/05/17 09:00 Dose: 10 mg Epoetin Sheldon (Procrit) 10,000 unit SC MWF [facility] Ferrous Sulfate (Feosol) 325 mg PO DAILY [facility] Last Admin: 02/05/17 09:04 Dose: 325 mg Furosemide (Lasix) 40 mg IV Q12 [facility] Last Admin: 02/05/17 10:30 Dose: 40 mg Glyburide (Micronase) 5 mg PO DAILY [facility] Last Admin: 02/05/17 09:00 Dose: Not Given Clindamycin Phosphate 600 mg/ (Sodium Chloride) 104 mls @ 104 mls/hr IVPB Q8 [facility] Insulin Human Regular (Humulin R) 0 units SC ACHS [facility] PRN Reason: Protocol Last Admin: 02/05/17 06:38 Dose: Not Given Isosorbide Mononitrate (Imdur) 30 mg PO DAILY [facility] Last Admin: 02/05/17 08:59 Dose: 30 mg Levofloxacin (Levaquin) 750 mg PO DAILY [facility] Last Admin: 02/05/17 08:58 Dose: 750 mg Magnesium Hydroxide (Milk Of Magnesia) 30 ml PO DAILY [facility] Last Admin: 02/05/17 09:04 Dose: 30 ml Megestrol Acetate (Megace) 800 mg PO DAILY [facility] Last Admin: 02/05/17 08:57 Dose: 800 mg Memantine (Namenda) 10 mg PO BID [facility] Last Admin: 02/05/17 09:00 Dose: 10 mg Metformin HCl (Glucophage) 1,000 mg PO BID [facility] Last Admin: 02/05/17 08:59 Dose: Not Given Metoprolol Tartrate (Lopressor) 50 mg PO DAILY [facility] Last Admin: 02/05/17 10:29 Dose: 50 mg Multivitamins/Minerals (Therapeutic-M Tab) 1 tab PO DAILY [facility] Last Admin: 02/05/17 08:59 Dose: 1 tab Pantoprazole Sodium (Protonix Ec Tab) 40 mg PO DAILY [facility] Last Admin: 02/05/17 08:59 Dose: 40 mg Potassium Chloride (K-Dur 20 Meq Er Tab) 20 meq PO DAILY [facility] Last Admin: 02/05/17 08:59 Dose: 20 meq Valsartan (Diovan) 160 mg PO DAILY [facility] Last Admin: 02/05/17 09:00 Dose: Not Given - Labs Labs: 02/05/17 06:30 02/05/17 06:30 PT 14.9 Seconds (9.8-13.1) H 02/03/17 22:26 INR 1.3 (0.9-1.2) H 02/03/17 22:26 APTT 26.2 Seconds (25.6-37.1) 02/03/17 22:26 - Constitutional Appears: In Acute Distress, Chronically Ill - Head Exam Head Exam: ATRAUMATIC, NORMAL INSPECTION, NORMOCEPHALIC - Eye Exam Eye Exam: EOMI, Normal appearance, PERRL Pupil Exam: NORMAL ACCOMODATION, PERRL - ENT Exam ENT Exam: Mucous Membranes Moist, Normal Exam - Neck Exam Neck Exam: Full ROM, Normal Inspection. absent: Lymphadenopathy - Respiratory Exam Respiratory Exam: Decreased Breath Sounds, Prolonged Expiratory Phase, Rales - Cardiovascular Exam Cardiovascular Exam: REGULAR RHYTHM, +S1, +S2. absent: Murmur - GI/Abdominal Exam GI & Abdominal Exam: Soft, Normal Bowel Sounds. absent: Tenderness - Rectal Exam Rectal Exam: NORMAL INSPECTION - Extremities Exam Extremities Exam: absent: Joint Swelling, Pedal Edema - Back Exam Back Exam: NORMAL INSPECTION - Neurological Exam Neurological Exam: Alert, Awake, CN II-XII Intact - Psychiatric Exam Psychiatric exam: Normal Affect, Normal Mood - Skin Skin Exam: Dry, Intact, Normal Color, Warm Assessment and Plan - Assessment and Plan (Free Text) Assessment: acute respiratory failure Plan: trial of bipap supportive care prognosis is poor
--- NOTE | 2017-02-05 10:51 | CP.PCM.HP ---
History of Present Illness - History of Present Illness History of Present Illness: Meghan is an 86 y/o male with hx of CAD CABG COPD Dementia, NH patient admitted for chest pains and SOB. Initial labs showed elevated troponin, CHF and infiltrate changes on CXR. Present on Admission - Present on Admission Any Indicators Present on Admission: No History of DVT/PE: No History of Uncontrolled Diabetes: No Urinary Catheter: No Decubitus Ulcer Present: Yes (unstageable left hip ulcer) Review of Systems - Review of Systems Systems not reviewed;Unavailable: Respiratory Distress - Cardiovascular Cardiovascular: Chest Pain at Rest - Respiratory Respiratory: Cough, Dyspnea Past Patient History - Infectious Disease Hx of Infectious Diseases: None - Past Medical History & Family History Past Medical History?: Yes - Past Social History Smoking Status: Never Smoked - CARDIAC Hx Hypercholesterolemia: Yes Hx Hypertension: Yes - PULMONARY Hx Respiratory Disorders: No - NEUROLOGICAL Hx Alzheimer's Disease: Yes Hx Dementia: Yes Hx Parkinson's Disease: Yes - HEENT Hx HEENT Problems: No - RENAL Hx Chronic Kidney Disease: No - ENDOCRINE/METABOLIC Hx Endocrine Disorders: Yes Hx Diabetes Mellitus Type 2: Yes - HEMATOLOGICAL/ONCOLOGICAL Hx AIDS: No Hx Anemia: Yes Hx Human Immunodeficiency Virus (HIV): No - INTEGUMENTARY Hx Dermatological Problems: Yes (GANGRENE LEFT FOOT) - MUSCULOSKELETAL/RHEUMATOLOGICAL Hx Falls: No Hx Osteoporosis: Yes - GASTROINTESTINAL Hx Gastrointestinal Disorders: Yes HX Swallowing Problems: Yes - GENITOURINARY/GYNECOLOGICAL Hx Genitourinary Disorders: Yes Hx Prostate Cancer: Yes - PSYCHIATRIC Hx Psychophysiologic Disorder: Yes Hx Psychosis: Yes Hx Substance Use: No - SURGICAL HISTORY Hx Coronary Artery Bypass Graft: Yes - ANESTHESIA Hx Anesthesia: Yes Hx Anesthesia Reactions: No Hx Malignant Hyperthermia: No Has any member of the family had a problem w/ anesthesia?: No Meds Allergies/Adverse Reactions: Allergies Allergy/AdvReac Type Severity Reaction Status Date / Time No Known Allergies Allergy Verified 12/31/16 14:17 Physical Exam - Constitutional Appears: In Acute Distress - Head Exam Head Exam: NORMAL INSPECTION - ENT Exam ENT Exam: Mucous Membranes Dry - Respiratory Exam Respiratory Exam: Decreased Breath Sounds, Rales - Cardiovascular Exam Cardiovascular Exam: REGULAR RHYTHM - GI/Abdominal Exam GI & Abdominal Exam: Normal Bowel Sounds - Neurological Exam Neurological exam: CN II-XII Intact, Oriented x3 Results - Vital Signs Recent Vital Signs: Last Vital Signs Temp 99.9 F H 02/05/17 08:00 Pulse 125 H 02/05/17 10:29 Resp 18 02/05/17 08:00 BP 123/68 02/05/17 10:30 Pulse Ox 99 02/05/17 08:00 - Labs Result Diagrams: 02/10/17 05:00 02/10/17 05:00 Labs: Laboratory Results - last 24 hr 02/04/17 02/05/17 02/05/17 21:06 05:24 06:30 WBC 8.6 RBC 3.38 L Hgb 8.5 L Hct 27.0 L MCV 79.8 L MCH 25.2 L MCHC 31.6 L RDW 18.4 H Plt Count 130 MPV 8.8 Neut % (Auto) 84.5 H Lymph % (Auto) 8.6 L [place] % (Auto) 5.8 Eos % (Auto) 0.8 Baso % (Auto) 0.3 Neut # 7.3 H Lymph # 0.7 L [place] # 0.5 Eos # 0.1 Baso # 0.0 Sodium Potassium Chloride Carbon Dioxide Anion Gap BUN Creatinine Est GFR ( Amer) Est GFR (Non-Af Amer) POC Glucose (mg/dL) 174 H 73 Random Glucose Calcium Total Bilirubin AST ALT Alkaline Phosphatase Total Protein Albumin Globulin Albumin/Globulin Ratio 02/05/17 06:30 WBC RBC Hgb Hct MCV MCH MCHC RDW Plt Count MPV Neut % (Auto) Lymph % (Auto) [place] % (Auto) Eos % (Auto) Baso % (Auto) Neut # Lymph # [place] # Eos # Baso # Sodium 149 H Potassium 3.8 Chloride 117 H Carbon Dioxide 21 L Anion Gap 15 BUN 34 H Creatinine 1.3 Est GFR ( Amer) > 60 Est GFR (Non-Af Amer) 53 POC Glucose (mg/dL) Random Glucose 74 L Calcium 8.2 L Total Bilirubin 0.5 AST 22 ALT 25 Alkaline Phosphatase 97 Total Protein 6.0 L Albumin 2.5 L Globulin 3.5 Albumin/Globulin Ratio 0.7 L Assessment & Plan (1) CHF (congestive heart failure) Status: Acute (2) Coronary artery disease Status: Acute (3) Dementia Status: Chronic (4) Diabetes mellitus Status: Chronic (5) HTN (hypertension) Status: Chronic (6) Pneumonia Status: Acute (7) Decubital ulcer Status: Acute - Assessment and Plan (Free Text) Plan: Cont meds Con ttx cardiology wound care lasix Pulmonary eval IV anibiotics.
--- NOTE | 2017-02-05 10:55 | CP.PCM.PN ---
Subjective - Date & Time of Evaluation Date of Evaluation: 02/05/17 Time of Evaluation: 10:55 - Subjective Subjective: Patient was noted to have tachycardia with HR 144 and very dyspneic. Objective - Vital Signs/Intake and Output Vital Signs (last 24 hours): Temp Pulse Resp BP Pulse Ox 99.9 F H 125 H 18 123/68 99 02/05/17 08:00 02/05/17 10:29 02/05/17 08:00 02/05/17 10:30 02/05/17 08:00 - Medications Medications: Current Medications Acetaminophen (Tylenol 325mg Tab) 650 mg PO Q4 PRN PRN Reason: Fever >100.4 F Last Admin: 02/04/17 09:33 Dose: 650 mg Albuterol/Ipratropium (Duoneb 3 Mg/0.5 Mg (3 Ml) Ud) 3 ml INH RQ4 [facility] Last Admin: 02/05/17 08:00 Dose: 3 ml Clopidogrel Bisulfate (Plavix) 75 mg PO DAILY [facility] Last Admin: 02/05/17 08:59 Dose: 75 mg Donepezil HCl (Aricept) 10 mg PO DAILY [facility] Last Admin: 02/05/17 09:00 Dose: 10 mg Epoetin Sheldon (Procrit) 10,000 unit SC MWF [facility] Ferrous Sulfate (Feosol) 325 mg PO DAILY [facility] Last Admin: 02/05/17 09:04 Dose: 325 mg Furosemide (Lasix) 40 mg IV Q12 [facility] Last Admin: 02/05/17 10:30 Dose: 40 mg Glyburide (Micronase) 5 mg PO DAILY [facility] Last Admin: 02/05/17 09:00 Dose: Not Given Clindamycin Phosphate 600 mg/ (Sodium Chloride) 104 mls @ 104 mls/hr IVPB Q8 [facility] Insulin Human Regular (Humulin R) 0 units SC ACHS [facility] PRN Reason: Protocol Last Admin: 02/05/17 06:38 Dose: Not Given Isosorbide Mononitrate (Imdur) 30 mg PO DAILY [facility] Last Admin: 02/05/17 08:59 Dose: 30 mg Levofloxacin (Levaquin) 750 mg PO DAILY [facility] Last Admin: 02/05/17 08:58 Dose: 750 mg Magnesium Hydroxide (Milk Of Magnesia) 30 ml PO DAILY [facility] Last Admin: 02/05/17 09:04 Dose: 30 ml Megestrol Acetate (Megace) 800 mg PO DAILY [facility] Last Admin: 02/05/17 08:57 Dose: 800 mg Memantine (Namenda) 10 mg PO BID [facility] Last Admin: 02/05/17 09:00 Dose: 10 mg Metformin HCl (Glucophage) 1,000 mg PO BID [facility] Last Admin: 02/05/17 08:59 Dose: Not Given Metoprolol Tartrate (Lopressor) 50 mg PO DAILY [facility] Last Admin: 02/05/17 10:29 Dose: 50 mg Multivitamins/Minerals (Therapeutic-M Tab) 1 tab PO DAILY [facility] Last Admin: 02/05/17 08:59 Dose: 1 tab Pantoprazole Sodium (Protonix Ec Tab) 40 mg PO DAILY [facility] Last Admin: 02/05/17 08:59 Dose: 40 mg Potassium Chloride (K-Dur 20 Meq Er Tab) 20 meq PO DAILY [facility] Last Admin: 02/05/17 08:59 Dose: 20 meq Valsartan (Diovan) 160 mg PO DAILY [facility] Last Admin: 02/05/17 09:00 Dose: Not Given - Labs Labs: 02/05/17 06:30 02/05/17 06:30 PT 14.9 Seconds (9.8-13.1) H 02/03/17 22:26 INR 1.3 (0.9-1.2) H 02/03/17 22:26 APTT 26.2 Seconds (25.6-37.1) 02/03/17 22:26 - Constitutional Appears: In Acute Distress - Head Exam Head Exam: ATRAUMATIC - ENT Exam ENT Exam: Mucous Membranes Dry - Respiratory Exam Respiratory Exam: Decreased Breath Sounds, Rales - Cardiovascular Exam Cardiovascular Exam: Tachycardia - GI/Abdominal Exam GI & Abdominal Exam: Normal Bowel Sounds - Neurological Exam Neurological Exam: Altered Assessment and Plan (1) CHF (congestive heart failure) Status: Acute (2) Tachycardia Status: Acute (3) Pneumonia Status: Acute (4) Dementia Status: Chronic (5) Diabetes mellitus Status: Chronic (6) HTN (hypertension) Status: Chronic - Assessment and Plan (Free Text) Plan: Cont meds Cont tx Cont meds folow up with Cardiology
--- NOTE | 2017-02-05 11:02 | PCM.RRTMUL ---
[employer] Nurse Assessment - Situation [employer] DESIGN [employer]INEER Responder Arrival Time:: 15:43 - Ventilator Settings FIO2 (% Oxygen):: 100 - Vital Signs Blood Pressure:: 123/68 - [place] Coma Scale Coma Scale Eye Opening:: Spontaneous Coma Scale Motor:: Obeys Commands Movement Coma Scale Verbal:: Oriented Coma Scale Total:: 15 I.Reason for [employer] DESIGN ENGINEER - A) Acute Change in Patient: (Select all that apply): Staff member or family is worried about patient - A) Initial Vital Signs: Blood Pressure: 125/69 Pulse Rate: 140 Respiratory Rate: 25 O2 Sat by Pulse Oximetry: 100 - B) Neurological Status (Select all that apply): Alert, Responsive, Oriented. absent: Verbal - C) Respiratory Oxygen Delivery Method: Non Rebreather @% - Constitutional Appears: Well (tachypneic) - Head Head Exam: ATRAUMATIC, NORMAL INSPECTION, NORMOCEPHALIC - Eyes Eye Exam: EOMI, Normal appearance - Respiratory Exam Respiratory Exam: absent: Accessory Muscle Use (crackles), Chest Wall Tenderness , Decreased Breath Sounds - Cardiovascular Exam Cardiovascular Exam: Tachycardia, REGULAR RHYTHM, +S1, +S2. absent: Bradycardia , Irregular Rhythm, JVD, Murmur - GI/Abdominal Exam GI & Abdominal Exam: Soft. absent: Distended - Neurological Exam Neurological Exam: Alert, Awake - Extremities Exam Extremities Exam: absent: Pedal Edema Plan - A. End of [employer]ER Vital Signs: Blood Pressure: 127/72 Pulse Rate: 100 Respiratory Rate: 20 O2 Sat by Pulse Oximetry: 99 - B. Assessment of Findings&Treatment Plan [employer] DESIGN ENGINEER called for 86 y/o M with history of COPD, demetia, HTN due to Tachycardia with HR of 140s. at the time of responder arrival, patient was alert and responsive on Nonrebreather mask, patient was saturating at 99%. Primary MD also present. During [employer] DES[employer]ER STAT EKG was ordered which showed no acute ischemic changes. Nurse states morning schaduled Metoprolol dose was held this morning. Patient was given Metoprolol 5mg IV and Lasix 40mg IV. Bipap was started as per pulmonary. HR improved to 100. A/P: 86 y/o M with history of COPD, demetia, HTN with [employer] DES[employer] ENGINEER due to Tachycardia in 140s. Now improved. -s/p Metoprolol 5mg IV and Lasix 40mg IV -Nurse instructed to give scheduled PO Metoprolol -Standing Valsartan d/c at this time due to low BP readings -Continue Telemetry monitoring Matthieu Sierra, PGY 1
--- NOTE | 2017-02-05 11:09 | CARD ---
APPROVED REPORT EXAM: Two-dimensional and M-mode echocardiogram with Doppler and color Doppler. Other Information Quality : AverageRhythm : NSR INDICATION Congestive Heart Failure 2D DIMENSIONS IVSd1.45 (0.7-1.1cm)LVDd4.72 (3.9-5.9cm) LVOT Diameter2.33 (1.8-2.4cm)PWd1.04 (0.7-1.1cm) IVSs0.80 (0.8-1.2cm)LVDs5.24 (2.5-4.0cm) FS (%) 11.0 %PWs1.04 (0.8-1.2cm) M-Mode DIMENSIONS Left Atrium (MM)5.06 (2.5-4.0cm)IVSd0.63 (0.7-1.1cm) Aortic Root3.25 (2.2-3.7cm)LVDd7.25 (4.0-5.6cm) Aortic Cusp Exc.0.91 (1.5-2.0cm)PWd0.81 (0.7-1.1cm) IVSs1.19 cmFS (%) 23 % LVDs5.59 (2.0-3.8cm)PWs1.53 cm Aortic Valve AoV Peak Yrvifswj245.8cm/sAoV VTI38.4cmAO Peak GR.16mmHg LVOT Peak Zzuqbzzr27.7cm/sLVOT VTI15.60cmAO Mean GR.9mmHg SUZIE (VMAX)0.23qu1POT (VTI)0.98cm2 Mitral Valve MV E Nlgtwetq57.0cm/sMV DECEL UQMZ555ocMW A Pegsdxgu886.2cm/s MV INJ02xxJ/A ratio0.8MVA (PHT)6.78cm2 TDI Medial E' Peak V3.18cm/sE/Lateral E'0.0E/Medial E'26.4 Pulmonary Valve PV Peak Vidjxric55.7cm/s LEFT VENTRICLE The left ventricle is normal size. There is normal left ventricular wall thickness. The systolic function is mildly to moderately impaired. The Ejection Fraction is 35-40%. There is global hypokinesis of the left ventricle. The left ventricular diastolic function is normal. No left ventricle thrombus noted on this study. There is no mass noted in the left ventricle. RIGHT VENTRICLE The right ventricle is normal size. There is normal right ventricular wall thickness. The right ventricular systolic function is normal. ATRIA The left atrium size is normal. The right atrium size is normal. The interatrial septum is intact with no evidence for an atrial septal defect. AORTIC VALVE The aortic valve is normal in structure and function. No aortic regurgitation is present. There is mild valvular aortic stenosis. Calculated aortic valve area is cm2 with maximum pressure gradient of 16 mmHg and mean pressure gradient of 9 mmHg. There is no aortic valvular vegetation. MITRAL VALVE Mitral annular calcification is moderate. There is no evidence of mitral valve prolapse. There is no mitral valve stenosis. Mitral regurgitation is mild. TRICUSPID VALVE The tricuspid valve is normal in structure and function. There is no tricuspid valve regurgitation noted. There is no tricuspid valve prolapse or vegetation. There is no tricuspid valve stenosis. PULMONIC VALVE The pulmonary valve is normal in structure and function. There is no pulmonic valvular regurgitation. There is no pulmonic valvular stenosis. GREAT VESSELS The aortic root is normal in size. The IVC is normal in size and collapses >50% with inspiration. PERICARDIAL EFFUSION The pericardium appears normal. There is no pleural effusion. <Conclusion> The left ventricle is normal size. The systolic function is mildly to moderately impaired. The Ejection Fraction is 35-40%. There is global hypokinesis of the left ventricle. There is mild valvular aortic stenosis. Calculated aortic valve area is cm2 with maximum pressure gradient of 16 mmHg and mean pressure gradient of 9 mmHg. Mitral annular calcification is moderate. Mitral regurgitation is mild.
--- NOTE | 2017-02-05 11:09 | CARD ---
APPROVED REPORT EKG Measurement Heart [id number] CT 128P [id number] <Conclusion> Sinus tachycardia with premature atrial complexes Left ventricular hypertrophy with repolarization abnormality Cannot rule out Septal infarct, age undetermined Abnormal ECG
--- NOTE | 2017-02-05 11:54 | CP.PCM.PN ---
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 Pt is in NAD and is alert and awake. Pt's dressing is clean, dry and intact. Pt appears to be resting comfortably in his bed with no distress. Objective - Vital Signs/Intake and Output Vital Signs (last 24 hours): Temp Pulse Resp BP Pulse Ox 99.9 F H 100 H 20 127/72 99 02/05/17 08:00 02/05/17 11:19 02/05/17 11:19 02/05/17 11:19 02/05/17 08:00 - Medications Medications: Current Medications Acetaminophen (Tylenol 325mg Tab) 650 mg PO Q4 PRN PRN Reason: Fever >100.4 F Last Admin: 02/04/17 09:33 Dose: 650 mg Albuterol/Ipratropium (Duoneb 3 Mg/0.5 Mg (3 Ml) Ud) 3 ml INH RQ4 [facility] Last Admin: 02/05/17 08:00 Dose: 3 ml Clopidogrel Bisulfate (Plavix) 75 mg PO DAILY [facility] Last Admin: 02/05/17 08:59 Dose: 75 mg Donepezil HCl (Aricept) 10 mg PO DAILY [facility] Last Admin: 02/05/17 09:00 Dose: 10 mg Epoetin Sheldon (Procrit) 10,000 unit SC MWF [facility] Ferrous Sulfate (Feosol) 325 mg PO DAILY [facility] Last Admin: 02/05/17 09:04 Dose: 325 mg Furosemide (Lasix) 40 mg IV Q12 [facility] Last Admin: 02/05/17 10:30 Dose: 40 mg Clindamycin Phosphate 600 mg/ (Sodium Chloride) 104 mls @ 104 mls/hr IVPB Q8 [facility] Insulin Human Regular (Humulin R) 0 units SC ACHS [facility] PRN Reason: Protocol Last Admin: 02/05/17 06:38 Dose: Not Given Isosorbide Mononitrate (Imdur) 30 mg PO DAILY [facility] Last Admin: 02/05/17 08:59 Dose: 30 mg Levofloxacin (Levaquin) 750 mg PO DAILY [facility] Last Admin: 02/05/17 08:58 Dose: 750 mg Magnesium Hydroxide (Milk Of Magnesia) 30 ml PO DAILY [facility] Last Admin: 02/05/17 09:04 Dose: 30 ml Megestrol Acetate (Megace) 800 mg PO DAILY [facility] Last Admin: 02/05/17 08:57 Dose: 800 mg Memantine (Namenda) 10 mg PO BID [facility] Last Admin: 02/05/17 09:00 Dose: 10 mg Metformin HCl (Glucophage) 1,000 mg PO BID [facility] Last Admin: 02/05/17 08:59 Dose: Not Given Metoprolol Tartrate (Lopressor) 50 mg PO DAILY [facility] Last Admin: 02/05/17 10:29 Dose: 50 mg Multivitamins/Minerals (Therapeutic-M Tab) 1 tab PO DAILY [facility] Last Admin: 02/05/17 08:59 Dose: 1 tab Pantoprazole Sodium (Protonix Ec Tab) 40 mg PO DAILY [facility] Last Admin: 02/05/17 08:59 Dose: 40 mg Potassium Chloride (K-Dur 20 Meq Er Tab) 20 meq PO DAILY [facility] Last Admin: 02/05/17 08:59 Dose: 20 meq - Labs Labs: 02/05/17 06:30 02/05/17 06:30 PT 14.9 Seconds (9.8-13.1) H 02/03/17 22:26 INR 1.3 (0.9-1.2) H 02/03/17 22:26 APTT 26.2 Seconds (25.6-37.1) 02/03/17 22:26 - Constitutional Appears: Well, Non-toxic, No Acute Distress - Extremities Exam Additional comments: Left Lower Extremity focused: VASC: DP pulses are non-palpable, PT pulses are 1/4, 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: < 4 sec to 4 digits, TG: cool to cool, no pitting or non-pitting edema noted DERM: dry necrosis with hyperpigmented skin noted on the distal medial aspect of the forefoot at the surgical site, no active drainage noted, no purulence, no dehiscence noted, surgical sutures are intact, no malodor, no surrounding erythema, no clinical suspicion of active infection NEURO: Protective sensation diminished ORTHO: hallux amputation noted, no pain on palpation of previously surgical site - Neurological Exam Neurological Exam: Alert, Awake, Oriented x3 - Psychiatric Exam Psychiatric exam: Normal Affect, Normal Mood Assessment and Plan - Assessment and Plan (Free Text) Assessment: 86 y/o male seen at bedside for 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 Navarrete Vitals and labs reviewed (afebrile, WBC @ 8.6) Dressing applied using betadine, DSD and kurlix Podiatry to follow while patient is in house
[2017-02-05] MEDS: Clindamycin 600 MG in Sodium Chloride 0.9% 100 ML IVPB SCH ×2 (12:50→17:27)
[2017-02-05] MEDS ORDERED: Sodium Chloride 3% for Inhalation 4 ML VIAL.NEB IH PRN (15:29)
--- NOTE | 2017-02-05 15:36 | CP.PCM.CON ---
History of Present Illness - History of Present Illness History of Present Illness: INFECTIOUS DISEASE NOTE Patient is an 86 yo male admitted c chest pain ,sob ,and cough with recent history of amputation of first ray on left foot. patients chest shows congestive and infiltrative changes PMH ALZHEIMERS,CAD,COPD,CHF DM,HTN PE HEENT:NC/HT NECK:SUPPLE LUNGS:DECREASED BS ,RALES AT BASES HEART:RSR ABDOMEN:POS BS EXT 1 (+) PERIPHERAL EDEMA IMP :RESPIRATORY INSUFFICIENCY PNEUMONIA AMI COPD Past Patient History - Infectious Disease Hx of Infectious Diseases: None - Past Medical History & Family History Past Medical History?: Yes - Past Social History Smoking Status: Never Smoked - CARDIAC Hx Hypercholesterolemia: Yes Hx Hypertension: Yes - PULMONARY Hx Respiratory Disorders: No - NEUROLOGICAL Hx Alzheimer's Disease: Yes Hx Dementia: Yes Hx Parkinson's Disease: Yes - HEENT Hx HEENT Problems: No - RENAL Hx Chronic Kidney Disease: No - ENDOCRINE/METABOLIC Hx Endocrine Disorders: Yes Hx Diabetes Mellitus Type 2: Yes - HEMATOLOGICAL/ONCOLOGICAL Hx AIDS: No Hx Anemia: Yes Hx Human Immunodeficiency Virus (HIV): No - INTEGUMENTARY Hx Dermatological Problems: Yes (GANGRENE LEFT FOOT) - MUSCULOSKELETAL/RHEUMATOLOGICAL Hx Falls: No Hx Osteoporosis: Yes - GASTROINTESTINAL Hx Gastrointestinal Disorders: Yes HX Swallowing Problems: Yes - GENITOURINARY/GYNECOLOGICAL Hx Genitourinary Disorders: Yes Hx Prostate Cancer: Yes - PSYCHIATRIC Hx Psychophysiologic Disorder: Yes Hx Psychosis: Yes Hx Substance Use: No - SURGICAL HISTORY Hx Coronary Artery Bypass Graft: Yes - ANESTHESIA Hx Anesthesia: Yes Hx Anesthesia Reactions: No Hx Malignant Hyperthermia: No Has any member of the family had a problem w/ anesthesia?: No Meds Allergies/Adverse Reactions: Allergies Allergy/AdvReac Type Severity Reaction Status Date / Time No Known Allergies Allergy Verified 12/31/16 14:17 - Medications Medications: Current Medications Acetaminophen (Tylenol 325mg Tab) 650 mg PO Q4 PRN PRN Reason: Fever >100.4 F Last Admin: 02/04/17 09:33 Dose: 650 mg Albuterol/Ipratropium (Duoneb 3 Mg/0.5 Mg (3 Ml) Ud) 3 ml INH RQ4 [facility] Last Admin: 02/05/17 12:25 Dose: 3 ml Clopidogrel Bisulfate (Plavix) 75 mg PO DAILY [facility] Last Admin: 02/05/17 08:59 Dose: 75 mg Donepezil HCl (Aricept) 10 mg PO DAILY [facility] Last Admin: 02/05/17 09:00 Dose: 10 mg Epoetin Sheldon (Procrit) 10,000 unit SC [facility] Ferrous Sulfate (Feosol) 325 mg PO DAILY [facility] Last Admin: 02/05/17 09:04 Dose: 325 mg Furosemide (Lasix) 40 mg IV Q12 [facility] Last Admin: 02/05/17 10:30 Dose: 40 mg Clindamycin Phosphate 600 mg/ (Sodium Chloride) 104 mls @ 104 mls/hr IVPB Q8 [facility] Last Admin: 02/05/17 12:50 Dose: 104 mls/hr Cefepime HCl 1 gm/ Sodium (Chloride) 100 mls @ 100 mls/hr IVPB Q12 [facility] Insulin Human Regular (Humulin R) 0 units SC [facility] PRN Reason: Protocol Last Admin: 02/05/17 12:51 Dose: 1 units Isosorbide Mononitrate (Imdur) 30 mg PO DAILY [facility] Last Admin: 02/05/17 08:59 Dose: 30 mg Levofloxacin (Levaquin) 750 mg PO DAILY [facility] Last Admin: 02/05/17 08:58 Dose: 750 mg Magnesium Hydroxide (Milk Of Magnesia) 30 ml PO DAILY [facility] Last Admin: 02/05/17 09:04 Dose: 30 ml Megestrol Acetate (Megace) 800 mg PO DAILY [facility] Last Admin: 02/05/17 08:57 Dose: 800 mg Memantine (Namenda) 10 mg PO BID [facility] Last Admin: 02/05/17 09:00 Dose: 10 mg Metformin HCl (Glucophage) 1,000 mg PO BID [facility] Last Admin: 02/05/17 08:59 Dose: Not Given Metoprolol Tartrate (Lopressor) 50 mg PO DAILY [facility] Last Admin: 02/05/17 10:29 Dose: 50 mg Multivitamins/Minerals (Therapeutic-M Tab) 1 tab PO DAILY [facility] Last Admin: 02/05/17 08:59 Dose: 1 tab Pantoprazole Sodium (Protonix Ec Tab) 40 mg PO DAILY [facility] Last Admin: 02/05/17 08:59 Dose: 40 mg Potassium Chloride (K-Dur 20 Meq Er Tab) 20 meq PO DAILY [facility] Last Admin: 02/05/17 08:59 Dose: 20 meq Results - Vital Signs Recent Vital Signs: Last Vital Signs Temp 98.8 F 02/05/17 13:00 Pulse 89 02/05/17 13:15 Resp 18 02/05/17 13:00 BP 95/57 L 02/05/17 13:00 Pulse Ox 98 02/05/17 13:00 - Labs Result Diagrams: 02/05/17 06:30 02/05/17 06:30 Labs: Laboratory Results - last 24 hr 02/04/17 02/05/17 02/05/17 21:06 05:24 06:30 WBC 8.6 RBC 3.38 L Hgb 8.5 L Hct 27.0 L MCV 79.8 L MCH 25.2 L MCHC 31.6 L RDW 18.4 H Plt Count 130 MPV 8.8 Neut % (Auto) 84.5 H Lymph % (Auto) 8.6 L [place] % (Auto) 5.8 Eos % (Auto) 0.8 Baso % (Auto) 0.3 Neut # 7.3 H Lymph # 0.7 L [place] # 0.5 Eos # 0.1 Baso # 0.0 Sodium Potassium Chloride Carbon Dioxide Anion Gap BUN Creatinine Est GFR ( Amer) Est GFR (Non-Af Amer) POC Glucose (mg/dL) 174 H 73 Random Glucose Calcium Total Bilirubin AST ALT Alkaline Phosphatase Total Protein Albumin Globulin Albumin/Globulin Ratio 02/05/17 02/05/17 06:30 11:01 WBC RBC Hgb Hct MCV MCH MCHC RDW Plt Count MPV Neut % (Auto) Lymph % (Auto) [place] % (Auto) Eos % (Auto) Baso % (Auto) Neut # Lymph # [place] # Eos # Baso # Sodium 149 H Potassium 3.8 Chloride 117 H Carbon Dioxide 21 L Anion Gap 15 BUN 34 H Creatinine 1.3 Est GFR ( Amer) > 60 Est GFR (Non-Af Amer) 53 POC Glucose (mg/dL) 191 H Random Glucose 74 L Calcium 8.2 L Total Bilirubin 0.5 AST 22 ALT 25 Alkaline Phosphatase 97 Total Protein 6.0 L Albumin 2.5 L Globulin 3.5 Albumin/Globulin Ratio 0.7 L
[2017-02-05] MEDS: Cefepime 1 GM in Sodium Chloride 0.9% 100 ML IVPB SCH (22:11)
[2017-02-06] MEDS: Clindamycin 600 MG in Sodium Chloride 0.9% 100 ML IVPB SCH ×3 (00:05→17:11)
[2017-02-06] MEDS: Albuterol-Ipratrop 3 mg / 0.5 (3 ml) UD INH SCH ×6 (04:54→23:51)
[2017-02-06] MEDS: Insulin Regular 100 units/ml SC SCH ×4 (06:52→22:00)
--- NOTE | 2017-02-06 08:41 | CP.PCM.PN ---
Subjective - Date & Time of Evaluation Date of Evaluation: 02/06/17 Time of Evaluation: 08:41 - Subjective Subjective: MORE AWAKE AND ALERT TOLERATING BIPAP WELL VSS TACHYCARDIA IMPROVED Objective - Vital Signs/Intake and Output Vital Signs (last 24 hours): Temp Pulse Resp BP Pulse Ox 98.4 F 94 H 20 108/62 100 02/06/17 05:00 02/06/17 07:47 02/06/17 05:00 02/06/17 05:00 02/06/17 05:00 - Medications Medications: Current Medications Acetaminophen (Tylenol 325mg Tab) 650 mg PO Q4 PRN PRN Reason: Fever >100.4 F Last Admin: 02/04/17 09:33 Dose: 650 mg Albuterol/Ipratropium (Duoneb 3 Mg/0.5 Mg (3 Ml) Ud) 3 ml INH RQ4 [facility] Last Admin: 02/06/17 07:38 Dose: 3 ml Clopidogrel Bisulfate (Plavix) 75 mg PO DAILY [facility] Last Admin: 02/05/17 08:59 Dose: 75 mg Donepezil HCl (Aricept) 10 mg PO DAILY [facility] Last Admin: 02/05/17 09:00 Dose: 10 mg Epoetin Sheldon (Procrit) 10,000 unit SC MWF [facility] Ferrous Sulfate (Feosol) 325 mg PO DAILY [facility] Last Admin: 02/05/17 09:04 Dose: 325 mg Furosemide (Lasix) 40 mg IV Q12 [facility] Last Admin: 02/05/17 22:07 Dose: 40 mg Clindamycin Phosphate 600 mg/ (Sodium Chloride) 104 mls @ 104 mls/hr IVPB Q8 [facility] Last Admin: 02/06/17 00:05 Dose: 104 mls/hr Cefepime HCl 1 gm/ Sodium (Chloride) 100 mls @ 100 mls/hr IVPB Q12 [facility] Last Admin: 02/05/17 22:11 Dose: 100 mls/hr Fluconazole (Diflucan Iv 200 Mg/100 Ml Ns) 100 mls @ 100 mls/hr IVPB DAILY [facility] Insulin Human Regular (Humulin R) 0 units SC ACHS [facility] PRN Reason: Protocol Last Admin: 02/06/17 06:52 Dose: Not Given Isosorbide Mononitrate (Imdur) 30 mg PO DAILY [facility] Last Admin: 02/05/17 08:59 Dose: 30 mg Levofloxacin (Levaquin) 750 mg PO DAILY [facility] Last Admin: 02/05/17 08:58 Dose: 750 mg Magnesium Hydroxide (Milk Of Magnesia) 30 ml PO DAILY [facility] Last Admin: 02/05/17 09:04 Dose: 30 ml Megestrol Acetate (Megace) 800 mg PO DAILY [facility] Last Admin: 02/05/17 08:57 Dose: 800 mg Memantine (Namenda) 10 mg PO BID [facility] Last Admin: 02/05/17 17:24 Dose: 10 mg Metformin HCl (Glucophage) 1,000 mg PO BID [facility] Last Admin: 02/05/17 17:24 Dose: 1,000 mg Metoprolol Tartrate (Lopressor) 50 mg PO DAILY [facility] Last Admin: 02/05/17 10:29 Dose: 50 mg Multivitamins/Minerals (Therapeutic-M Tab) 1 tab PO DAILY [facility] Last Admin: 02/05/17 08:59 Dose: 1 tab Pantoprazole Sodium (Protonix Ec Tab) 40 mg PO DAILY [facility] Last Admin: 02/05/17 08:59 Dose: 40 mg Potassium Chloride (K-Dur 20 Meq Er Tab) 20 meq PO DAILY [facility] Last Admin: 02/05/17 08:59 Dose: 20 meq - Labs Labs: 02/05/17 06:30 02/05/17 06:30 PT 14.9 Seconds (9.8-13.1) H 02/03/17 22:26 INR 1.3 (0.9-1.2) H 02/03/17 22:26 APTT 26.2 Seconds (25.6-37.1) 02/03/17 22:26 - Constitutional Appears: Chronically Ill - Head Exam Head Exam: ATRAUMATIC, NORMAL INSPECTION, NORMOCEPHALIC - Eye Exam Eye Exam: EOMI, Normal appearance, PERRL Pupil Exam: NORMAL ACCOMODATION, PERRL - ENT Exam ENT Exam: Mucous Membranes Moist, Normal Exam - Neck Exam Neck Exam: Full ROM, Normal Inspection. absent: Lymphadenopathy - Respiratory Exam Respiratory Exam: Decreased Breath Sounds, Rales Additional comments: ON BIPAP - Cardiovascular Exam Cardiovascular Exam: REGULAR RHYTHM, +S1, +S2. absent: Murmur - GI/Abdominal Exam GI & Abdominal Exam: Soft, Normal Bowel Sounds. absent: Tenderness - Rectal Exam Rectal Exam: NORMAL INSPECTION - Extremities Exam Extremities Exam: absent: Joint Swelling, Pedal Edema - Back Exam Back Exam: NORMAL INSPECTION - Neurological Exam Neurological Exam: Alert, Awake, CN II-XII Intact - Psychiatric Exam Psychiatric exam: Normal Affect, Normal Mood - Skin Skin Exam: Dry, Intact, Normal Color, Warm Assessment and Plan - Assessment and Plan (Free Text) Assessment: ACUTE RESPIRATORY FAILURE Plan: CONTINUE BIPAP MAY USE NC O2 DURING MEALS REPEAT CXR
[2017-02-06] MEDS: Cefepime 1 GM in Sodium Chloride 0.9% 100 ML IVPB SCH ×2 (10:10→21:46)
[2017-02-06] MEDS: Potassium Chloride 20 mEq ER Tab PO SCH (10:11)
[2017-02-06] MEDS: levoFLOXacin 750 MG TAB PO SCH (10:11)
[2017-02-06] MEDS: Megestrol Acetate 40 mg/ml Cup PO SCH (10:16)
[2017-02-06] MEDS: Magnesium Hydroxide Susp 30 ml UD PO SCH (10:16)
[2017-02-06] MEDS: Multivitamin With Minerals Tab PO SCH (10:16)
[2017-02-06] MEDS: Pantoprazole 40 mg EC Tab PO SCH (10:17)
[2017-02-06] MEDS: EPOETIN ALFA 10,000 UNIT/ML ML SC SCH (10:17)
[2017-02-06] MEDS: Fluconazole IV 200mg/100 ml NS 100 ML IVPB SCH (10:18)
--- NOTE | 2017-02-06 10:20 | RAD ---
PROCEDURE: CHEST RADIOGRAPH, 1 VIEW HISTORY: PNEUMONIA COMPARISON: 02/03/2017 FINDINGS: LUNGS: Since the prior examination, there is no significant interval change in patchy airspace disease in the right lung and left lower lobe. There are also prominent interstitial markings in both lungs. PLEURA: No pneumothorax or pleural fluid seen. CARDIOVASCULAR: The cardiomediastinal silhouette is stable. Status post CABG. OSSEOUS STRUCTURES: No significant abnormalities. VISUALIZED UPPER ABDOMEN: Normal. OTHER FINDINGS: None. IMPRESSION: No significant interval change in patchy airspace disease in the right lung and left lower lobe. Findings could represent multifocal pneumonia. The possibility of pulmonary edema in the right lung is a consideration given interstitial prominence which could be related to interstitial edema.
--- NOTE | 2017-02-06 15:52 | CP.PCM.PN ---
Subjective - Date & Time of Evaluation Date of Evaluation: 02/06/17 Time of Evaluation: 15:50 - Subjective Subjective: 86 y/o male seen at bedside with attending Dr. 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 Pt is in NAD and is alert and awake. Pt's dressing is clean, dry and intact. Pt appears to be resting comfortably in his bed with no distress. Objective - Vital Signs/Intake and Output Vital Signs (last 24 hours): Temp Pulse Resp BP Pulse Ox 98.2 F 94 H 22 112/65 100 02/06/17 15:41 02/06/17 15:41 02/06/17 15:41 02/06/17 15:41 02/06/17 15:41 - Medications Medications: Current Medications Acetaminophen (Tylenol 325mg Tab) 650 mg PO Q4 PRN PRN Reason: Fever >100.4 F Last Admin: 02/04/17 09:33 Dose: 650 mg Albuterol/Ipratropium (Duoneb 3 Mg/0.5 Mg (3 Ml) Ud) 3 ml INH RQ4 [facility] Last Admin: 02/06/17 15:29 Dose: 3 ml Clopidogrel Bisulfate (Plavix) 75 mg PO DAILY [facility] Last Admin: 02/06/17 10:15 Dose: 75 mg Donepezil HCl (Aricept) 10 mg PO DAILY [facility] Last Admin: 02/06/17 10:10 Dose: 10 mg Epoetin Sheldon (Procrit) 10,000 unit SC MWF [facility] Last Admin: 02/06/17 10:17 Dose: 10,000 unit Ferrous Sulfate (Feosol) 325 mg PO DAILY [facility] Last Admin: 02/06/17 10:13 Dose: 325 mg Furosemide (Lasix) 40 mg IV Q12 [facility] Last Admin: 02/06/17 10:14 Dose: 40 mg Clindamycin Phosphate 600 mg/ (Sodium Chloride) 104 mls @ 104 mls/hr IVPB Q8 [facility] Last Admin: 02/06/17 10:29 Dose: 104 mls/hr Cefepime HCl 1 gm/ Sodium (Chloride) 100 mls @ 100 mls/hr IVPB Q12 [facility] Last Admin: 02/06/17 10:10 Dose: 100 mls/hr Fluconazole (Diflucan Iv 200 Mg/100 Ml Ns) 100 mls @ 100 mls/hr IVPB DAILY [facility] Last Admin: 02/06/17 10:18 Dose: 100 mls/hr Insulin Human Regular (Humulin R) 0 units SC ACHS [facility] PRN Reason: Protocol Last Admin: 02/06/17 06:52 Dose: Not Given Isosorbide Mononitrate (Imdur) 30 mg PO DAILY [facility] Last Admin: 02/06/17 10:13 Dose: 30 mg Magnesium Hydroxide (Milk Of Magnesia) 30 ml PO DAILY [facility] Last Admin: 02/06/17 10:16 Dose: Not Given Megestrol Acetate (Megace) 800 mg PO DAILY [facility] Last Admin: 02/06/17 10:16 Dose: 800 mg Memantine (Namenda) 10 mg PO BID [facility] Last Admin: 02/06/17 10:15 Dose: 10 mg Metformin HCl (Glucophage) 1,000 mg PO BID [facility] Last Admin: 02/06/17 10:13 Dose: 1,000 mg Metoprolol Tartrate (Lopressor) 50 mg PO DAILY [facility] Last Admin: 02/06/17 11:13 Dose: 50 mg Multivitamins/Minerals (Therapeutic-M Tab) 1 tab PO DAILY [facility] Last Admin: 02/06/17 10:16 Dose: 1 tab Pantoprazole Sodium (Protonix Ec Tab) 40 mg PO DAILY [facility] Last Admin: 02/06/17 10:17 Dose: 40 mg Potassium Chloride (K-Dur 20 Meq Er Tab) 20 meq PO DAILY [facility] Last Admin: 02/06/17 10:11 Dose: 20 meq - Labs Labs: 02/05/17 06:30 02/05/17 06:30 PT 14.9 Seconds (9.8-13.1) H 02/03/17 22:26 INR 1.3 (0.9-1.2) H 02/03/17 22:26 APTT 26.2 Seconds (25.6-37.1) 02/03/17 22:26 - Constitutional Appears: Well, Non-toxic, No Acute Distress - Extremities Exam Additional comments: Left Lower Extremity focused: VASC: DP pulses are non-palpable, PT pulses are 1/4, 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: < 4 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 to 4 digits, TG: cool to cool, no pitting or non-pitting edema noted DERM: dry necrosis with hyperpigmented skin noted on the distal medial aspect of the forefoot at the surgical site, healthy skin noted surrounding the hyperpigmented skin on the forefoot, no active drainage noted, no purulence, no dehiscence noted, surgical sutures are intact, no malodor, no surrounding erythema, no clinical suspicion of active infection noted at this time NEURO: Protective sensation diminished ORTHO: hallux amputation noted, no pain on palpation of previously surgical site - Neurological Exam Neurological Exam: Alert, Awake, Oriented x3 - Psychiatric Exam Psychiatric exam: Normal Affect, Normal Mood Assessment and Plan - Assessment and Plan (Free Text) Assessment: 86 y/o male seen at bedside for 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 Navarrete Vitals and labs reviewed (afebrile, WBC @ 8.6) Dressing applied using betadine, DSD and kurlix No suspicion of active infection from the foot noted at this time Podiatry to follow while patient is in house
--- NOTE | 2017-02-06 17:54 | CP.PCM.PN ---
Subjective - Date & Time of Evaluation Date of Evaluation: 02/06/17 Time of Evaluation: 17:40 - Subjective Subjective: patient is currently on BiPAP. Objective - Vital Signs/Intake and Output Vital Signs (last 24 hours): Temp Pulse Resp BP Pulse Ox 98.2 F 94 H 22 112/65 100 02/06/17 15:41 02/06/17 15:41 02/06/17 15:41 02/06/17 15:41 02/06/17 15:41 Intake and Output: 02/06/17 02/06/17 06:59 18:59 Intake Total 1100 Balance 1100 - Medications Medications: Current Medications Acetaminophen (Tylenol 325mg Tab) 650 mg PO Q4 PRN PRN Reason: Fever >100.4 F Last Admin: 02/04/17 09:33 Dose: 650 mg Albuterol/Ipratropium (Duoneb 3 Mg/0.5 Mg (3 Ml) Ud) 3 ml INH RQ4 [facility] Last Admin: 02/06/17 15:29 Dose: 3 ml Clopidogrel Bisulfate (Plavix) 75 mg PO DAILY [facility] Last Admin: 02/06/17 10:15 Dose: 75 mg Donepezil HCl (Aricept) 10 mg PO DAILY [facility] Last Admin: 02/06/17 10:10 Dose: 10 mg Epoetin Sheldon (Procrit) 10,000 unit SC MWF [facility] Last Admin: 02/06/17 10:17 Dose: 10,000 unit Ferrous Sulfate (Feosol) 325 mg PO DAILY [facility] Last Admin: 02/06/17 10:13 Dose: 325 mg Furosemide (Lasix) 40 mg IV Q12 [facility] Last Admin: 02/06/17 10:14 Dose: 40 mg Clindamycin Phosphate 600 mg/ (Sodium Chloride) 104 mls @ 104 mls/hr IVPB Q8 [facility] Last Admin: 02/06/17 17:11 Dose: 104 mls/hr Cefepime HCl 1 gm/ Sodium (Chloride) 100 mls @ 100 mls/hr IVPB Q12 [facility] Last Admin: 02/06/17 10:10 Dose: 100 mls/hr Fluconazole (Diflucan Iv 200 Mg/100 Ml Ns) 100 mls @ 100 mls/hr IVPB DAILY [facility] Last Admin: 02/06/17 10:18 Dose: 100 mls/hr Insulin Human Regular (Humulin R) 0 units SC ACHS [facility] PRN Reason: Protocol Last Admin: 02/06/17 17:12 Dose: Not Given Isosorbide Mononitrate (Imdur) 30 mg PO DAILY [facility] Last Admin: 02/06/17 10:13 Dose: 30 mg Magnesium Hydroxide (Milk Of Magnesia) 30 ml PO DAILY [facility] Last Admin: 02/06/17 10:16 Dose: Not Given Megestrol Acetate (Megace) 800 mg PO DAILY [facility] Last Admin: 02/06/17 10:16 Dose: 800 mg Memantine (Namenda) 10 mg PO BID [facility] Last Admin: 02/06/17 16:26 Dose: 10 mg Metformin HCl (Glucophage) 1,000 mg PO BID [facility] Last Admin: 02/06/17 16:26 Dose: 1,000 mg Metoprolol Tartrate (Lopressor) 50 mg PO DAILY [facility] Last Admin: 02/06/17 11:13 Dose: 50 mg Multivitamins/Minerals (Therapeutic-M Tab) 1 tab PO DAILY [facility] Last Admin: 02/06/17 10:16 Dose: 1 tab Pantoprazole Sodium (Protonix Ec Tab) 40 mg PO DAILY [facility] Last Admin: 02/06/17 10:17 Dose: 40 mg Potassium Chloride (K-Dur 20 Meq Er Tab) 20 meq PO DAILY [facility] Last Admin: 02/06/17 10:11 Dose: 20 meq - Labs Labs: 02/05/17 06:30 02/05/17 06:30 PT 14.9 Seconds (9.8-13.1) H 02/03/17 22:26 INR 1.3 (0.9-1.2) H 02/03/17 22:26 APTT 26.2 Seconds (25.6-37.1) 02/03/17 22:26 - Constitutional Appears: Chronically Ill - Head Exam Head Exam: NORMAL INSPECTION - Eye Exam Eye Exam: Normal appearance - ENT Exam ENT Exam: Mucous Membranes Moist - Neck Exam Neck Exam: Full ROM - Respiratory Exam Respiratory Exam: Decreased Breath Sounds - Cardiovascular Exam Cardiovascular Exam: REGULAR RHYTHM - GI/Abdominal Exam GI & Abdominal Exam: Normal Bowel Sounds - Rectal Exam Rectal Exam: Deferred - Extremities Exam Extremities Exam: absent: Pedal Edema - Back Exam Back Exam: NORMAL INSPECTION - Neurological Exam Neurological Exam: Alert - Psychiatric Exam Psychiatric exam: Normal Affect - Skin Skin Exam: Normal Color Assessment and Plan (1) CHF (congestive heart failure) Assessment & Plan: echocardiogram reviews LV systolic dysfunction. Patient sen has acute on chronic systolic dysfunction. continue diuresis. Status: Acute (2) Coronary artery disease Assessment & Plan: conservative therapy with antiplatelet agents Status: Acute (3) HTN (hypertension) Assessment & Plan: blood pressure control Status: Chronic
[2017-02-07] MEDS: Clindamycin 600 MG in Sodium Chloride 0.9% 100 ML IVPB SCH ×3 (00:17→17:00)
[2017-02-07] MEDS: Albuterol-Ipratrop 3 mg / 0.5 (3 ml) UD INH SCH ×6 (04:03→23:54)
[2017-02-07] MEDS: Insulin Regular 100 units/ml SC SCH ×3 (06:36→22:00)
--- NOTE | 2017-02-07 08:38 | CP.PCM.PN ---
Subjective - Date & Time of Evaluation Date of Evaluation: 02/07/17 Time of Evaluation: 08:38 - Subjective Subjective: awake and alert responds to verbal commands tachycardia improved Objective - Vital Signs/Intake and Output Vital Signs (last 24 hours): Temp Pulse Resp BP Pulse Ox 98.7 F 83 19 114/63 95 02/07/17 04:49 02/07/17 07:34 02/07/17 04:49 02/07/17 04:49 02/07/17 04:49 - Medications Medications: Current Medications Acetaminophen (Tylenol 325mg Tab) 650 mg PO Q4 PRN PRN Reason: Fever >100.4 F Last Admin: 02/04/17 09:33 Dose: 650 mg Albuterol/Ipratropium (Duoneb 3 Mg/0.5 Mg (3 Ml) Ud) 3 ml INH RQ4 [facility] Last Admin: 02/07/17 07:33 Dose: 3 ml Clopidogrel Bisulfate (Plavix) 75 mg PO DAILY [facility] Last Admin: 02/06/17 10:15 Dose: 75 mg Donepezil HCl (Aricept) 10 mg PO DAILY [facility] Last Admin: 02/06/17 10:10 Dose: 10 mg Epoetin Sheldon (Procrit) 10,000 unit SC MWF [facility] Last Admin: 02/06/17 10:17 Dose: 10,000 unit Ferrous Sulfate (Feosol) 325 mg PO DAILY [facility] Last Admin: 02/06/17 10:13 Dose: 325 mg Furosemide (Lasix) 40 mg IV Q12 [facility] Last Admin: 02/06/17 21:51 Dose: 40 mg Clindamycin Phosphate 600 mg/ (Sodium Chloride) 104 mls @ 104 mls/hr IVPB Q8 [facility] Last Admin: 02/07/17 00:17 Dose: 104 mls/hr Cefepime HCl 1 gm/ Sodium (Chloride) 100 mls @ 100 mls/hr IVPB Q12 [facility] Last Admin: 02/06/17 21:46 Dose: 100 mls/hr Fluconazole (Diflucan Iv 200 Mg/100 Ml Ns) 100 mls @ 100 mls/hr IVPB DAILY [facility] Last Admin: 02/06/17 10:18 Dose: 100 mls/hr Insulin Human Regular (Humulin R) 0 units SC ACHS [facility] PRN Reason: Protocol Last Admin: 07/11/17 06:36 Dose: Not Given Isosorbide Mononitrate (Imdur) 30 mg PO DAILY [facility] Last Admin: 02/06/17 10:13 Dose: 30 mg Magnesium Hydroxide (Milk Of Magnesia) 30 ml PO DAILY [facility] Last Admin: 02/06/17 10:16 Dose: Not Given Megestrol Acetate (Megace) 800 mg PO DAILY [facility] Last Admin: 02/06/17 10:16 Dose: 800 mg Memantine (Namenda) 10 mg PO BID [facility] Last Admin: 02/06/17 16:26 Dose: 10 mg Metformin HCl (Glucophage) 1,000 mg PO BID [facility] Last Admin: 02/06/17 16:26 Dose: 1,000 mg Metoprolol Tartrate (Lopressor) 50 mg PO DAILY [facility] Last Admin: 02/06/17 11:13 Dose: 50 mg Multivitamins/Minerals (Therapeutic-M Tab) 1 tab PO DAILY [facility] Last Admin: 02/06/17 10:16 Dose: 1 tab Pantoprazole Sodium (Protonix Ec Tab) 40 mg PO DAILY [facility] Last Admin: 02/06/17 10:17 Dose: 40 mg Potassium Chloride (K-Dur 20 Meq Er Tab) 20 meq PO DAILY [facility] Last Admin: 02/06/17 10:11 Dose: 20 meq - Labs Labs: 02/05/17 06:30 02/05/17 06:30 PT 14.9 Seconds (9.8-13.1) H 02/03/17 22:26 INR 1.3 (0.9-1.2) H 02/03/17 22:26 APTT 26.2 Seconds (25.6-37.1) 02/03/17 22:26 - Constitutional Appears: Chronically Ill - Head Exam Head Exam: ATRAUMATIC, NORMAL INSPECTION, NORMOCEPHALIC - Eye Exam Eye Exam: EOMI, Normal appearance, PERRL Pupil Exam: NORMAL ACCOMODATION, PERRL - ENT Exam ENT Exam: Mucous Membranes Moist, Normal Exam - Neck Exam Neck Exam: Full ROM, Normal Inspection. absent: Lymphadenopathy - Respiratory Exam Respiratory Exam: Prolonged Expiratory Phase, Rales, NORMAL BREATHING PATTERN Additional comments: on bipap - Cardiovascular Exam Cardiovascular Exam: REGULAR RHYTHM, +S1, +S2. absent: Murmur - GI/Abdominal Exam GI & Abdominal Exam: Soft, Normal Bowel Sounds. absent: Tenderness - Rectal Exam Rectal Exam: NORMAL INSPECTION - Extremities Exam Extremities Exam: Full ROM, Normal Capillary Refill. absent: Joint Swelling, Pedal Edema - Back Exam Back Exam: NORMAL INSPECTION - Neurological Exam Neurological Exam: Alert, Awake, CN II-XII Intact - Psychiatric Exam Psychiatric exam: Normal Affect, Normal Mood - Skin Skin Exam: Dry, Intact, Normal Color, Warm Assessment and Plan - Assessment and Plan (Free Text) Assessment: respiratory failure pneumonia Plan: continue bipap cxr and abgs in am
[2017-02-07] MEDS: Fluconazole IV 200mg/100 ml NS 100 ML IVPB SCH (08:57)
[2017-02-07] MEDS: Multivitamin With Minerals Tab PO SCH (08:58)
[2017-02-07] MEDS: Potassium Chloride 20 mEq ER Tab PO SCH (08:58)
[2017-02-07] MEDS: Pantoprazole 40 mg EC Tab PO SCH (08:58)
[2017-02-07] MEDS: Megestrol Acetate 40 mg/ml Cup PO SCH (08:59)
--- NOTE | 2017-02-07 10:25 | PQF GENQUE ---
This form is a permanent part of the medical record 02/07/17 Dr William, Would you please clarify if you concur with the Unstageable Left Hip Pressure Ulcer Present on Admission or other explanation. beaming inspector has documented that the patient has an unstageable Left hip pressure ulcer with recommendations . Clarification of your documentation is requested to better reflect the severity of illness and intensity of treatment of your patient. Indicators present [] Specify: [] [] Specify: [] [] Specify: [] [] Specify: [] Location in the medical record that reflects the above clinical findings: [] Treatment Provided: [] PHYSICIAN'S RESPONSE Based on your medical judgment of the clinical indicators outlined above please clarify the following: [] Practitioner response [] If unable to determine, please check the box, sign and date. Present On Admission (POA) Indicator: [] Present at the time of admission [] Not present at the time of admission [] Clinically Undetermined In responding to this query, please exercise your independent professional judgment. The fact that a question is asked does not imply that any particular answer is desired or expected. Thank you for your clarification on this documentation. If you have any questions please call:ext `[phone] * Thank you, Camila Vizcaino RN [facility]
[2017-02-07] MEDS: Magnesium Hydroxide Susp 30 ml UD PO SCH (10:28)
[2017-02-07] MEDS: Cefepime 1 GM in Sodium Chloride 0.9% 100 ML IVPB SCH ×2 (11:00→20:37)
--- NOTE | 2017-02-07 14:28 | CP.PCM.PN ---
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 Pt is in NAD and is alert and awake. Pt appears to be resting comfortably in his bed with no distress. Pt's dressing is clean, dry and intact. Objective - Vital Signs/Intake and Output Vital Signs (last 24 hours): Temp Pulse Resp BP Pulse Ox 97.8 F 82 18 144/62 98 02/07/17 12:00 02/07/17 13:00 02/07/17 12:00 02/07/17 12:00 02/07/17 12:00 - Medications Medications: Current Medications Acetaminophen (Tylenol 325mg Tab) 650 mg PO Q4 PRN PRN Reason: Fever >100.4 F Last Admin: 02/04/17 09:33 Dose: 650 mg Albuterol/Ipratropium (Duoneb 3 Mg/0.5 Mg (3 Ml) Ud) 3 ml INH RQ4 [facility] Last Admin: 02/07/17 11:52 Dose: 3 ml Clopidogrel Bisulfate (Plavix) 75 mg PO DAILY [facility] Last Admin: 02/07/17 08:58 Dose: 75 mg Donepezil HCl (Aricept) 10 mg PO DAILY [facility] Last Admin: 02/07/17 08:57 Dose: 10 mg Epoetin Sheldon (Procrit) 10,000 unit SC MWF [facility] Last Admin: 02/06/17 10:17 Dose: 10,000 unit Ferrous Sulfate (Feosol) 325 mg PO DAILY [facility] Last Admin: 02/07/17 08:58 Dose: 325 mg Furosemide (Lasix) 40 mg IV Q12 [facility] Last Admin: 02/07/17 08:58 Dose: 40 mg Clindamycin Phosphate 600 mg/ (Sodium Chloride) 104 mls @ 104 mls/hr IVPB Q8 [facility] Last Admin: 02/07/17 09:00 Dose: 104 mls/hr Cefepime HCl 1 gm/ Sodium (Chloride) 100 mls @ 100 mls/hr IVPB Q12 [facility] Last Admin: 02/07/17 11:00 Dose: 100 mls/hr Fluconazole (Diflucan Iv 200 Mg/100 Ml Ns) 100 mls @ 100 mls/hr IVPB DAILY [facility] Last Admin: 02/07/17 08:57 Dose: 100 mls/hr Insulin Human Regular (Humulin R) 0 units SC ACHS [facility] PRN Reason: Protocol Last Admin: 02/07/17 12:00 Dose: 1 units Isosorbide Mononitrate (Imdur) 30 mg PO DAILY [facility] Last Admin: 02/07/17 08:58 Dose: 30 mg Magnesium Hydroxide (Milk Of Magnesia) 30 ml PO DAILY [facility] Last Admin: 02/07/17 10:28 Dose: 30 ml Megestrol Acetate (Megace) 800 mg PO DAILY [facility] Last Admin: 02/07/17 08:59 Dose: 800 mg Memantine (Namenda) 10 mg PO BID [facility] Last Admin: 02/07/17 09:00 Dose: 10 mg Metformin HCl (Glucophage) 1,000 mg PO BID [facility] Last Admin: 02/07/17 09:00 Dose: 1,000 mg Metoprolol Tartrate (Lopressor) 50 mg PO DAILY [facility] Last Admin: 02/07/17 08:58 Dose: 50 mg Multivitamins/Minerals (Therapeutic-M Tab) 1 tab PO DAILY [facility] Last Admin: 02/07/17 08:58 Dose: 1 tab Pantoprazole Sodium (Protonix Ec Tab) 40 mg PO DAILY [facility] Last Admin: 02/07/17 08:58 Dose: 40 mg Potassium Chloride (K-Dur 20 Meq Er Tab) 20 meq PO DAILY [facility] Last Admin: 02/07/17 08:58 Dose: 20 meq - Labs Labs: 02/05/17 06:30 02/05/17 06:30 PT 14.9 Seconds (9.8-13.1) H 02/03/17 22:26 INR 1.3 (0.9-1.2) H 02/03/17 22:26 APTT 26.2 Seconds (25.6-37.1) 02/03/17 22:26 - Constitutional Appears: Well, No Acute Distress - Extremities Exam Additional comments: Left Lower Extremity focused: VASC: DP pulses are non-palpable, PT pulses are 1/4, [employer]: < 4 sec to 4 digits, TG: cool to cool, no pitting or non-pitting edema noted DERM: dry necrosis with hyperpigmented skin noted on the distal medial aspect of the forefoot at the surgical site, healthy skin noted surrounding the hyperpigmented skin on the forefoot, no active drainage noted, no purulence, no dehiscence noted, surgical sutures are intact, no malodor, no surrounding erythema, no clinical suspicion of active infection noted at this time NEURO: Protective sensation grossly diminished ORTHO: hallux amputation noted, no pain on palpation of previously surgical site - Neurological Exam Neurological Exam: Alert, Awake, Oriented x3 - Psychiatric Exam Psychiatric exam: Normal Affect, Normal Mood Assessment and Plan - Assessment and Plan (Free Text) Assessment: 86 y/o male seen at bedside for 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 Navarrete Vitals and labs reviewed (afebrile, WBC @ 8.6 as of 02/05) Dressing applied using betadine, DSD and kurlix No suspicion of active infection from the foot noted at this time Podiatry to follow while patient is in house <Armani Navarrete - Last Filed: 02/09/17 12:14> Objective - Vital Signs/Intake and Output Vital Signs (last 24 hours): Temp Pulse Resp BP Pulse Ox 97.9 F 101 H 18 131/71 98 02/09/17 08:00 02/09/17 08:08 02/09/17 08:00 02/09/17 09:24 02/09/17 08:00 - Medications Medications: Current Medications Acetaminophen (Tylenol 325mg Tab) 650 mg PO Q4 PRN PRN Reason: Fever >100.4 F Last Admin: 02/04/17 09:33 Dose: 650 mg Albuterol/Ipratropium (Duoneb 3 Mg/0.5 Mg (3 Ml) Ud) 3 ml INH RQ4 [facility] Last Admin: 02/09/17 11:35 Dose: 3 ml Clopidogrel Bisulfate (Plavix) 75 mg PO DAILY [facility] Last Admin: 02/08/17 10:00 Dose: Not Given Donepezil HCl (Aricept) 10 mg PO DAILY [facility] Last Admin: 02/08/17 10:00 Dose: Not Given Epoetin Sheldon (Procrit) 10,000 unit SC MWF [facility] Last Admin: 02/08/17 09:00 Dose: 10,000 unit Ferrous Sulfate (Feosol) 325 mg PO DAILY [facility] Last Admin: 02/08/17 10:00 Dose: Not Given Furosemide (Lasix) 40 mg IV Q12 [facility] Last Admin: 02/09/17 09:24 Dose: 40 mg Clindamycin Phosphate 600 mg/ (Sodium Chloride) 104 mls @ 104 mls/hr IVPB Q8 [facility] Last Admin: 02/09/17 09:16 Dose: 104 mls/hr Cefepime HCl 1 gm/ Sodium (Chloride) 100 mls @ 100 mls/hr IVPB Q12 [facility] Last Admin: 02/09/17 09:20 Dose: 100 mls/hr Fluconazole (Diflucan Iv 200 Mg/100 Ml Ns) 100 mls @ 100 mls/hr IVPB DAILY [facility] Last Admin: 02/09/17 09:17 Dose: 100 mls/hr Dextrose/Sodium Chloride (Dextrose 5%/0.45% Ns 1000 Ml) 1,000 mls @ 40 mls/hr IV .Q24H [facility] Stop: 02/09/17 19:32 Last Admin: 02/08/17 20:00 Dose: 40 mls/hr Insulin Human Regular (Humulin R) 0 units SC ACHS [facility] PRN Reason: Protocol Last Admin: 02/09/17 06:30 Dose: Not Given Isosorbide Mononitrate (Imdur) 30 mg PO DAILY [facility] Last Admin: 02/08/17 10:00 Dose: Not Given Magnesium Hydroxide (Milk Of Magnesia) 30 ml PO DAILY [facility] Last Admin: 02/07/17 10:28 Dose: 30 ml Megestrol Acetate (Megace) 800 mg PO DAILY [facility] Last Admin: 02/08/17 10:00 Dose: Not Given Memantine (Namenda) 10 mg PO BID [facility] Last Admin: 02/08/17 10:00 Dose: Not Given Metformin HCl (Glucophage) 1,000 mg PO BID [facility] Last Admin: 02/08/17 10:00 Dose: Not Given Metoprolol Tartrate (Lopressor) 5 mg IVP Q6 [facility] Last Admin: 02/09/17 04:24 Dose: 5 mg Multivitamins/Minerals (Therapeutic-M Tab) 1 tab PO DAILY [facility] Last Admin: 02/08/17 10:00 Dose: Not Given Pantoprazole Sodium (Protonix Ec Tab) 40 mg PO DAILY [facility] Last Admin: 02/08/17 10:00 Dose: Not Given Potassium Chloride (K-Dur 20 Meq Er Tab) 20 meq PO DAILY [facility] Last Admin: 02/08/17 10:00 Dose: Not Given - Labs Labs: 02/05/17 06:30 02/05/17 06:30 PT 14.9 Seconds (9.8-13.1) H 02/03/17 22:26 INR 1.3 (0.9-1.2) H 02/03/17 22:26 APTT 26.2 Seconds (25.6-37.1) 02/03/17 22:26
[2017-02-08] MEDS: Clindamycin 600 MG in Sodium Chloride 0.9% 100 ML IVPB SCH ×3 (00:07→17:00)
[2017-02-08] MEDS: Albuterol-Ipratrop 3 mg / 0.5 (3 ml) UD INH SCH ×6 (04:56→23:44)
[2017-02-08] MEDS: Insulin Regular 100 units/ml SC SCH ×4 (06:38→21:49)
[2017-02-08] MEDS: EPOETIN ALFA 10,000 UNIT/ML ML SC SCH (09:00)
--- NOTE | 2017-02-08 09:14 | CP.PCM.PN ---
Subjective - Date & Time of Evaluation Date of Evaluation: 02/08/17 Time of Evaluation: 09:13 - Subjective Subjective: COMFORTABLE ON BIPAP AWAKE AND ALERT Objective - Vital Signs/Intake and Output Vital Signs (last 24 hours): Temp Pulse Resp BP Pulse Ox 97.5 F L 85 20 140/89 93 L 02/08/17 08:32 02/08/17 08:32 02/08/17 08:32 02/08/17 08:32 02/08/17 08:32 - Medications Medications: Current Medications Acetaminophen (Tylenol 325mg Tab) 650 mg PO Q4 PRN PRN Reason: Fever >100.4 F Last Admin: 02/04/17 09:33 Dose: 650 mg Albuterol/Ipratropium (Duoneb 3 Mg/0.5 Mg (3 Ml) Ud) 3 ml INH RQ4 [facility] Last Admin: 02/08/17 07:14 Dose: 3 ml Clopidogrel Bisulfate (Plavix) 75 mg PO DAILY [facility] Last Admin: 02/07/17 08:58 Dose: 75 mg Donepezil HCl (Aricept) 10 mg PO DAILY [facility] Last Admin: 02/07/17 08:57 Dose: 10 mg Epoetin Sheldon (Procrit) 10,000 unit SC MWF [facility] Last Admin: 02/06/17 10:17 Dose: 10,000 unit Ferrous Sulfate (Feosol) 325 mg PO DAILY [facility] Last Admin: 02/07/17 08:58 Dose: 325 mg Furosemide (Lasix) 40 mg IV Q12 [facility] Last Admin: 02/07/17 20:29 Dose: 40 mg Clindamycin Phosphate 600 mg/ (Sodium Chloride) 104 mls @ 104 mls/hr IVPB Q8 [facility] Last Admin: 02/08/17 00:07 Dose: 104 mls/hr Cefepime HCl 1 gm/ Sodium (Chloride) 100 mls @ 100 mls/hr IVPB Q12 [facility] Last Admin: 02/07/17 20:37 Dose: 100 mls/hr Fluconazole (Diflucan Iv 200 Mg/100 Ml Ns) 100 mls @ 100 mls/hr IVPB DAILY [facility] Last Admin: 02/07/17 08:57 Dose: 100 mls/hr Dextrose/Sodium Chloride (Dextrose 5%-0.45% Ns 500 Ml) 1,000 mls @ 40 mls/hr IV .Q24H [facility] Stop: 02/08/17 20:33 Last Admin: 02/07/17 21:00 Dose: 40 mls/hr Insulin Human Regular (Humulin R) 0 units SC ACHS [facility] PRN Reason: Protocol Last Admin: 02/08/17 06:38 Dose: 1 units Isosorbide Mononitrate (Imdur) 30 mg PO DAILY [facility] Last Admin: 02/07/17 08:58 Dose: 30 mg Magnesium Hydroxide (Milk Of Magnesia) 30 ml PO DAILY [facility] Last Admin: 02/07/17 10:28 Dose: 30 ml Megestrol Acetate (Megace) 800 mg PO DAILY [facility] Last Admin: 02/07/17 08:59 Dose: 800 mg Memantine (Namenda) 10 mg PO BID [facility] Last Admin: 02/07/17 17:39 Dose: 10 mg Metformin HCl (Glucophage) 1,000 mg PO BID [facility] Last Admin: 02/07/17 17:00 Dose: Not Given Metoprolol Tartrate (Lopressor) 50 mg PO DAILY [facility] Last Admin: 02/07/17 08:58 Dose: 50 mg Multivitamins/Minerals (Therapeutic-M Tab) 1 tab PO DAILY [facility] Last Admin: 02/07/17 08:58 Dose: 1 tab Pantoprazole Sodium (Protonix Ec Tab) 40 mg PO DAILY [facility] Last Admin: 02/07/17 08:58 Dose: 40 mg Potassium Chloride (K-Dur 20 Meq Er Tab) 20 meq PO DAILY [facility] Last Admin: 02/07/17 08:58 Dose: 20 meq - Labs Labs: 02/05/17 06:30 02/05/17 06:30 PT 14.9 Seconds (9.8-13.1) H 02/03/17 22:26 INR 1.3 (0.9-1.2) H 02/03/17 22:26 APTT 26.2 Seconds (25.6-37.1) 02/03/17 22:26 - Constitutional Appears: Chronically Ill - Head Exam Head Exam: ATRAUMATIC, NORMAL INSPECTION, NORMOCEPHALIC - Eye Exam Eye Exam: EOMI, Normal appearance, PERRL Pupil Exam: NORMAL ACCOMODATION, PERRL - ENT Exam ENT Exam: Mucous Membranes Moist, Normal Exam - Neck Exam Neck Exam: Full ROM, Normal Inspection. absent: Lymphadenopathy - Respiratory Exam Respiratory Exam: Decreased Breath Sounds, Rales, NORMAL BREATHING PATTERN Additional comments: ON BIPAP - Cardiovascular Exam Cardiovascular Exam: REGULAR RHYTHM, +S1, +S2. absent: Murmur - GI/Abdominal Exam GI & Abdominal Exam: Soft, Normal Bowel Sounds. absent: Tenderness - Rectal Exam Rectal Exam: NORMAL INSPECTION - Extremities Exam Extremities Exam: Full ROM, Normal Capillary Refill, Normal Inspection. absent : Joint Swelling, Pedal Edema - Back Exam Back Exam: NORMAL INSPECTION - Neurological Exam Neurological Exam: Alert, Awake, CN II-XII Intact - Psychiatric Exam Psychiatric exam: Normal Affect, Normal Mood - Skin Skin Exam: Dry, Intact, Normal Color, Warm Assessment and Plan - Assessment and Plan (Free Text) Assessment: RESPIRATORY FAILURE [id number] CHF Plan: USE NC O2 DURING DAY AND BIPAP AT NIGHT
[2017-02-08] MEDS: Metoprolol 1 mg/ml Inj IVP SCH ×3 (09:59→21:23)
[2017-02-08] MEDS: Potassium Chloride 20 mEq ER Tab PO SCH (10:00)
[2017-02-08] MEDS: Multivitamin With Minerals Tab PO SCH (10:00)
[2017-02-08] MEDS: Fluconazole IV 200mg/100 ml NS 100 ML IVPB SCH (10:00)
[2017-02-08] MEDS: Megestrol Acetate 40 mg/ml Cup PO SCH (10:00)
[2017-02-08] MEDS: Cefepime 1 GM in Sodium Chloride 0.9% 100 ML IVPB SCH ×2 (10:00→20:10)
[2017-02-08] MEDS: Pantoprazole 40 mg EC Tab PO SCH (10:00)
--- NOTE | 2017-02-08 11:19 | RAD ---
PROCEDURE: CHEST RADIOGRAPH, 1 VIEW HISTORY: respiratory failure COMPARISON: 02/06/2017 FINDINGS: LUNGS: Extensive patchy bilateral opacity, essentially unchanged from prior examination. PLEURA: No pneumothorax or pleural fluid seen. CARDIOVASCULAR: Sternotomy wires. Normal heart size. OSSEOUS STRUCTURES: No significant abnormalities. VISUALIZED UPPER ABDOMEN: Normal. OTHER FINDINGS: None. IMPRESSION: Extensive patchy bilateral pulmonary opacity, nonspecific. No pleural effusion.
--- NOTE | 2017-02-08 11:38 | CP.PCM.PN ---
<Santosh Layne - Last Filed: 02/08/17 13:01> Subjective - Date & Time of Evaluation Date of Evaluation: 02/08/17 Time of Evaluation: 10:00 - Subjective Subjective: pt seen and examined at bedside. No acute events overnight. Afebrile. Limited interview secondary to pts mental status. Attempt to switch pt off Bipap to NC resulted in tachycardia, placed back on bipap. Objective - Vital Signs/Intake and Output Vital Signs (last 24 hours): Temp Pulse Resp BP Pulse Ox 97.5 F L 92 H 20 140/89 93 L 02/08/17 08:32 02/08/17 11:08 02/08/17 08:32 02/08/17 10:00 02/08/17 08:32 - Medications Medications: Current Medications Acetaminophen (Tylenol 325mg Tab) 650 mg PO Q4 PRN PRN Reason: Fever >100.4 F Last Admin: 02/04/17 09:33 Dose: 650 mg Albuterol/Ipratropium (Duoneb 3 Mg/0.5 Mg (3 Ml) Ud) 3 ml INH RQ4 [facility] Last Admin: 02/08/17 11:06 Dose: 3 ml Clopidogrel Bisulfate (Plavix) 75 mg PO DAILY [facility] Last Admin: 02/07/17 08:58 Dose: 75 mg Donepezil HCl (Aricept) 10 mg PO DAILY [facility] Last Admin: 02/07/17 08:57 Dose: 10 mg Epoetin Sheldon (Procrit) 10,000 unit SC MWF [facility] Last Admin: 02/08/17 09:00 Dose: 10,000 unit Ferrous Sulfate (Feosol) 325 mg PO DAILY [facility] Last Admin: 02/07/17 08:58 Dose: 325 mg Furosemide (Lasix) 40 mg IV Q12 [facility] Last Admin: 02/08/17 10:00 Dose: 40 mg Clindamycin Phosphate 600 mg/ (Sodium Chloride) 104 mls @ 104 mls/hr IVPB Q8 [facility] Last Admin: 02/08/17 00:07 Dose: 104 mls/hr Cefepime HCl 1 gm/ Sodium (Chloride) 100 mls @ 100 mls/hr IVPB Q12 [facility] Last Admin: 02/08/17 10:00 Dose: 100 mls/hr Fluconazole (Diflucan Iv 200 Mg/100 Ml Ns) 100 mls @ 100 mls/hr IVPB DAILY [facility] Last Admin: 02/08/17 10:00 Dose: 100 mls/hr Dextrose/Sodium Chloride (Dextrose 5%-0.45% Ns 500 Ml) 1,000 mls @ 40 mls/hr IV .Q24H [facility] Stop: 02/08/17 20:33 Last Admin: 02/07/17 21:00 Dose: 40 mls/hr Insulin Human Regular (Humulin R) 0 units SC ACHS [facility] PRN Reason: Protocol Last Admin: 02/08/17 06:38 Dose: 1 units Isosorbide Mononitrate (Imdur) 30 mg PO DAILY [facility] Last Admin: 02/07/17 08:58 Dose: 30 mg Magnesium Hydroxide (Milk Of Magnesia) 30 ml PO DAILY [facility] Last Admin: 02/07/17 10:28 Dose: 30 ml Megestrol Acetate (Megace) 800 mg PO DAILY [facility] Last Admin: 02/07/17 08:59 Dose: 800 mg Memantine (Namenda) 10 mg PO BID [facility] Last Admin: 02/07/17 17:39 Dose: 10 mg Metformin HCl (Glucophage) 1,000 mg PO BID [facility] Last Admin: 02/07/17 17:00 Dose: Not Given Metoprolol Tartrate (Lopressor) 5 mg IVP Q6 [facility] Last Admin: 02/08/17 09:59 Dose: 5 mg Multivitamins/Minerals (Therapeutic-M Tab) 1 tab PO DAILY [facility] Last Admin: 02/07/17 08:58 Dose: 1 tab Pantoprazole Sodium (Protonix Ec Tab) 40 mg PO DAILY [facility] Last Admin: 02/07/17 08:58 Dose: 40 mg Potassium Chloride (K-Dur 20 Meq Er Tab) 20 meq PO DAILY [facility] Last Admin: 02/07/17 08:58 Dose: 20 meq - Labs Labs: 02/05/17 06:30 02/05/17 06:30 PT 14.9 Seconds (9.8-13.1) H 02/03/17 22:26 INR 1.3 (0.9-1.2) H 02/03/17 22:26 APTT 26.2 Seconds (25.6-37.1) 02/03/17 22:26 - Constitutional Appears: Non-toxic, No Acute Distress - Head Exam Head Exam: ATRAUMATIC - Eye Exam Eye Exam: EOMI Pupil Exam: PERRL - ENT Exam ENT Exam: Mucous Membranes Moist - Respiratory Exam Respiratory Exam: Decreased Breath Sounds, Rales, NORMAL BREATHING PATTERN. absent: Rhonchi, Wheezes, Respiratory Distress Additional comments: on BiPap - Cardiovascular Exam Cardiovascular Exam: Tachycardia, REGULAR RHYTHM. absent: Gallop, RRR, +S1, +S2 , Murmur - GI/Abdominal Exam GI & Abdominal Exam: Soft, Normal Bowel Sounds. absent: Distended, Firm, Guarding, Rigid, Tenderness - Extremities Exam Extremities Exam: Normal Inspection. absent: Calf Tenderness, Pedal Edema, Tenderness - Neurological Exam Neurological Exam: Awake. absent: Oriented x3 Assessment and Plan - Assessment and Plan (Free Text) Assessment: 1) Pneumonia with respiratory insuff -Dr. 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 -being followed by podiatry <Tavares William - Last Filed: 02/16/17 09:26> Objective - Vital Signs/Intake and Output Vital Signs (last 24 hours): Temp Pulse Resp BP Pulse Ox 97.6 F 86 22 122/63 96 02/10/17 08:18 02/10/17 16:19 02/10/17 16:19 02/10/17 08:18 02/10/17 16:19 - Labs Labs: 02/10/17 05:00 02/10/17 05:00 PT 21.4 Seconds (9.8-13.1) H 02/10/17 05:00 INR 1.9 (0.9-1.2) H 02/10/17 05:00 APTT 26.2 Seconds (25.6-37.1) 02/03/17 22:26 Assessment and Plan (1) CHF (congestive heart failure) Status: Acute (2) Tachycardia Status: Acute (3) Pneumonia Status: Acute (4) Dementia Status: Chronic (5) Diabetes mellitus Status: Chronic (6) HTN (hypertension) Status: Chronic (7) Decubital ulcer Status: Acute - Assessment and Plan (Free Text) Plan: I was present duing evaluation and discussed with Dr Layne re plans of care and mgt awaiting for hospice care eval.
--- NOTE | 2017-02-08 17:38 | CP.PCM.PN ---
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 Pt is in NAD and is alert and awake. Pt appears to be resting comfortably in his bed with no distress. Pt's dressing is clean, dry and intact. Objective - Vital Signs/Intake and Output Vital Signs (last 24 hours): Temp Pulse Resp BP Pulse Ox 97.8 F 118 H 20 133/49 L 100 02/08/17 16:00 02/08/17 16:00 02/08/17 16:00 02/08/17 16:00 02/08/17 16:00 - Medications Medications: Current Medications Acetaminophen (Tylenol 325mg Tab) 650 mg PO Q4 PRN PRN Reason: Fever >100.4 F Last Admin: 02/04/17 09:33 Dose: 650 mg Albuterol/Ipratropium (Duoneb 3 Mg/0.5 Mg (3 Ml) Ud) 3 ml INH RQ4 [facility] Last Admin: 02/08/17 15:12 Dose: 3 ml Clopidogrel Bisulfate (Plavix) 75 mg PO DAILY [facility] Last Admin: 02/08/17 10:00 Dose: Not Given Donepezil HCl (Aricept) 10 mg PO DAILY [facility] Last Admin: 02/08/17 10:00 Dose: Not Given Epoetin Sheldon (Procrit) 10,000 unit SC MWF [facility] Last Admin: 02/08/17 09:00 Dose: 10,000 unit Ferrous Sulfate (Feosol) 325 mg PO DAILY [facility] Last Admin: 02/08/17 10:00 Dose: Not Given Furosemide (Lasix) 40 mg IV Q12 [facility] Last Admin: 02/08/17 10:00 Dose: 40 mg Clindamycin Phosphate 600 mg/ (Sodium Chloride) 104 mls @ 104 mls/hr IVPB Q8 [facility] Last Admin: 02/08/17 09:00 Dose: 104 mls/hr Cefepime HCl 1 gm/ Sodium (Chloride) 100 mls @ 100 mls/hr IVPB Q12 [facility] Last Admin: 02/08/17 10:00 Dose: 100 mls/hr Fluconazole (Diflucan Iv 200 Mg/100 Ml Ns) 100 mls @ 100 mls/hr IVPB DAILY [facility] Last Admin: 02/08/17 10:00 Dose: 100 mls/hr Dextrose/Sodium Chloride (Dextrose 5%-0.45% Ns 500 Ml) 1,000 mls @ 40 mls/hr IV .Q24H [facility] Stop: 02/08/17 20:33 Last Admin: 02/07/17 21:00 Dose: 40 mls/hr Insulin Human Regular (Humulin R) 0 units SC ACHS [facility] PRN Reason: Protocol Last Admin: 02/08/17 06:38 Dose: 1 units Isosorbide Mononitrate (Imdur) 30 mg PO DAILY [facility] Last Admin: 02/08/17 10:00 Dose: Not Given Magnesium Hydroxide (Milk Of Magnesia) 30 ml PO DAILY [facility] Last Admin: 02/07/17 10:28 Dose: 30 ml Megestrol Acetate (Megace) 800 mg PO DAILY [facility] Last Admin: 02/08/17 10:00 Dose: Not Given Memantine (Namenda) 10 mg PO BID [facility] Last Admin: 02/08/17 10:00 Dose: Not Given Metformin HCl (Glucophage) 1,000 mg PO BID [facility] Last Admin: 02/08/17 10:00 Dose: Not Given Metoprolol Tartrate (Lopressor) 5 mg IVP Q6 [facility] Last Admin: 02/08/17 09:59 Dose: 5 mg Multivitamins/Minerals (Therapeutic-M Tab) 1 tab PO DAILY [facility] Last Admin: 02/08/17 10:00 Dose: Not Given Pantoprazole Sodium (Protonix Ec Tab) 40 mg PO DAILY [facility] Last Admin: 02/08/17 10:00 Dose: Not Given Potassium Chloride (K-Dur 20 Meq Er Tab) 20 meq PO DAILY [facility] Last Admin: 02/08/17 10:00 Dose: Not Given - Labs Labs: 02/05/17 06:30 02/05/17 06:30 PT 14.9 Seconds (9.8-13.1) H 02/03/17 22:26 INR 1.3 (0.9-1.2) H 02/03/17 22:26 APTT 26.2 Seconds (25.6-37.1) 02/03/17 22:26 - Constitutional Appears: Well, Non-toxic, No Acute Distress - Extremities Exam Additional comments: Left Lower Extremity focused: VASC: DP pulses are non-palpable, PT pulses are 1/4, LOBSTER MAN: < 4 sec to 4 digits, TG: cool to cool, no pitting or non-pitting edema noted DERM: dry necrosis with hyperpigmented skin noted on the distal medial aspect of the forefoot at the surgical site, healthy skin noted surrounding the hyperpigmented skin on the forefoot, no active drainage noted, no purulence, no dehiscence noted, surgical sutures are intact, no malodor, no surrounding erythema, no clinical suspicion of active infection noted at this time NEURO: Protective sensation grossly diminished ORTHO: hallux amputation noted, no pain on palpation of previously surgical site - Neurological Exam Neurological Exam: Alert, Awake, Oriented x3 - Psychiatric Exam Psychiatric exam: Normal Affect, Normal Mood Assessment and Plan - Assessment and Plan (Free Text) Assessment: 86 y/o male seen at bedside for 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 Navarrete Vitals and labs reviewed (afebrile, WBC @ 8.6 as of 02/05) Dressing applied using betadine, DSD and kurlix No suspicion of active infection from the foot noted at this time Podiatry to follow while patient is in house
[2017-02-08] MEDS ORDERED: Dextrose 5%/0.45% NS 1,000 ML IV SCH (19:45)
[2017-02-09] MEDS: Clindamycin 600 MG in Sodium Chloride 0.9% 100 ML IVPB SCH ×3 (00:08→17:37)
[2017-02-09] MEDS: Metoprolol 1 mg/ml Inj IVP SCH ×4 (04:24→21:39)
[2017-02-09] MEDS: Albuterol-Ipratrop 3 mg / 0.5 (3 ml) UD INH SCH ×5 (04:49→19:38)
[2017-02-09] MEDS: Insulin Regular 100 units/ml SC SCH ×4 (06:30→21:32)
[2017-02-09] MEDS: Fluconazole IV 200mg/100 ml NS 100 ML IVPB SCH (09:17)
--- NOTE | 2017-02-09 09:19 | CP.PCM.PN ---
Subjective - Date & Time of Evaluation Date of Evaluation: 02/09/17 Time of Evaluation: 09:18 - Subjective Subjective: FEELS BETTER SCHEDULED FOR THORACENTESES TODAY Objective - Vital Signs/Intake and Output Vital Signs (last 24 hours): Temp Pulse Resp BP Pulse Ox 97.9 F 101 H 18 131/71 98 02/09/17 08:00 02/09/17 08:08 02/09/17 08:00 02/09/17 08:00 02/09/17 08:00 - Medications Medications: Current Medications Acetaminophen (Tylenol 325mg Tab) 650 mg PO Q4 PRN PRN Reason: Fever >100.4 F Last Admin: 02/04/17 09:33 Dose: 650 mg Albuterol/Ipratropium (Duoneb 3 Mg/0.5 Mg (3 Ml) Ud) 3 ml INH RQ4 [facility] Last Admin: 02/09/17 07:54 Dose: 3 ml Clopidogrel Bisulfate (Plavix) 75 mg PO DAILY [facility] Last Admin: 02/08/17 10:00 Dose: Not Given Donepezil HCl (Aricept) 10 mg PO DAILY [facility] Last Admin: 02/08/17 10:00 Dose: Not Given Epoetin Sheldon (Procrit) 10,000 unit SC MWF [facility] Last Admin: 02/08/17 09:00 Dose: 10,000 unit Ferrous Sulfate (Feosol) 325 mg PO DAILY [facility] Last Admin: 02/08/17 10:00 Dose: Not Given Furosemide (Lasix) 40 mg IV Q12 [facility] Last Admin: 02/08/17 20:12 Dose: 40 mg Clindamycin Phosphate 600 mg/ (Sodium Chloride) 104 mls @ 104 mls/hr IVPB Q8 [facility] Last Admin: 02/09/17 00:08 Dose: 104 mls/hr Cefepime HCl 1 gm/ Sodium (Chloride) 100 mls @ 100 mls/hr IVPB Q12 [facility] Last Admin: 02/08/17 20:10 Dose: 100 mls/hr Fluconazole (Diflucan Iv 200 Mg/100 Ml Ns) 100 mls @ 100 mls/hr IVPB DAILY [facility] Last Admin: 02/08/17 10:00 Dose: 100 mls/hr Dextrose/Sodium Chloride (Dextrose 5%/0.45% Ns 1000 Ml) 1,000 mls @ 40 mls/hr IV .Q24H [facility] Stop: 02/09/17 19:32 Last Admin: 02/08/17 20:00 Dose: 40 mls/hr Insulin Human Regular (Humulin R) 0 units SC ACHS [facility] PRN Reason: Protocol Last Admin: 02/09/17 06:30 Dose: Not Given Isosorbide Mononitrate (Imdur) 30 mg PO DAILY [facility] Last Admin: 02/08/17 10:00 Dose: Not Given Magnesium Hydroxide (Milk Of Magnesia) 30 ml PO DAILY [facility] Last Admin: 02/07/17 10:28 Dose: 30 ml Megestrol Acetate (Megace) 800 mg PO DAILY [facility] Last Admin: 02/08/17 10:00 Dose: Not Given Memantine (Namenda) 10 mg PO BID [facility] Last Admin: 02/08/17 10:00 Dose: Not Given Metformin HCl (Glucophage) 1,000 mg PO BID [facility] Last Admin: 02/08/17 10:00 Dose: Not Given Metoprolol Tartrate (Lopressor) 5 mg IVP Q6 [facility] Last Admin: 02/09/17 04:24 Dose: 5 mg Multivitamins/Minerals (Therapeutic-M Tab) 1 tab PO DAILY [facility] Last Admin: 02/08/17 10:00 Dose: Not Given Pantoprazole Sodium (Protonix Ec Tab) 40 mg PO DAILY [facility] Last Admin: 02/08/17 10:00 Dose: Not Given Potassium Chloride (K-Dur 20 Meq Er Tab) 20 meq PO DAILY [facility] Last Admin: 02/08/17 10:00 Dose: Not Given - Labs Labs: 02/05/17 06:30 02/05/17 06:30 PT 14.9 Seconds (9.8-13.1) H 02/03/17 22:26 INR 1.3 (0.9-1.2) H 02/03/17 22:26 APTT 26.2 Seconds (25.6-37.1) 02/03/17 22:26 - Constitutional Appears: No Acute Distress - Head Exam Head Exam: ATRAUMATIC, NORMAL INSPECTION, NORMOCEPHALIC - Eye Exam Eye Exam: EOMI, Normal appearance, PERRL Pupil Exam: NORMAL ACCOMODATION, PERRL - ENT Exam ENT Exam: Mucous Membranes Moist, Normal Exam - Neck Exam Neck Exam: Full ROM, Normal Inspection. absent: Lymphadenopathy - Respiratory Exam Respiratory Exam: Decreased Breath Sounds, NORMAL BREATHING PATTERN - Cardiovascular Exam Cardiovascular Exam: REGULAR RHYTHM, +S1, +S2. absent: Murmur - GI/Abdominal Exam GI & Abdominal Exam: Soft, Normal Bowel Sounds. absent: Tenderness - Rectal Exam Rectal Exam: NORMAL INSPECTION - Extremities Exam Extremities Exam: Full ROM, Normal Capillary Refill, Normal Inspection. absent : Joint Swelling, Pedal Edema - Back Exam Back Exam: NORMAL INSPECTION - Neurological Exam Neurological Exam: Alert, Awake, CN II-XII Intact, Normal Gait, Oriented x3 - Psychiatric Exam Psychiatric exam: Normal Affect, Normal Mood - Skin Skin Exam: Dry, Intact, Normal Color, Warm Assessment and Plan - Assessment and Plan (Free Text) Assessment: PLEURAL EFFUSION ESRD Plan: FOR THORACENTESES
[2017-02-09] MEDS: Cefepime 1 GM in Sodium Chloride 0.9% 100 ML IVPB SCH ×2 (09:20→21:32)
[2017-02-09] MEDS: Potassium Chloride 20 mEq ER Tab PO SCH (09:36)
[2017-02-09] MEDS: Magnesium Hydroxide Susp 30 ml UD PO SCH (09:37)
[2017-02-09] MEDS: Megestrol Acetate 40 mg/ml Cup PO SCH (09:37)
[2017-02-09] MEDS: Multivitamin With Minerals Tab PO SCH (09:38)
[2017-02-09] MEDS: Pantoprazole 40 mg EC Tab PO SCH (09:38)
--- NOTE | 2017-02-09 09:54 | PQF GENQUE ---
This form is a permanent part of the medical record 02/09/17 Dr. William, Blood CS growing Leila Ciferrii. Would you please clarify if there is an associated diagnosis or not to go along with this finding . Admitted with substernal chest pain and SOB. Temp max 100.6, HR 123, 107, 110, BP 121/50, 104/53. WBC 8.1 with a L shift. Lactic acid 3.4. CXR: Findings may represent pulmonary edema/CHF and or pneumonia. Sputum CS: Normal gino. Medications include: Clindamycin, Cefepime and Diflucan. Clarification of your documentation is requested to better reflect the severity of illness and intensity of treatment of your patient. Indicators present [] Specify: [] [] Specify: [] [] Specify: [] [] Specify: [] Location in the medical record that reflects the above clinical findings: [] Treatment Provided: [] PHYSICIAN'S RESPONSE Based on your medical judgment of the clinical indicators outlined above please clarify the following: [] Practitioner response [] If unable to determine, please check the box, sign and date. Present On Admission (POA) Indicator: [] Present at the time of admission [] Not present at the time of admission [] Clinically Undetermined In responding to this query, please exercise your independent professional judgment. The fact that a question is asked does not imply that any particular answer is desired or expected. Thank you for your clarification on this documentation. If you have any questions please call:extension [phone] * Thank you, Camila Vizcaino RN [facility]
[2017-02-09] MEDS ORDERED: Dextrose 5%/0.45% NS 1,000 ML IV SCH (17:45)
[2017-02-10] MEDS: Albuterol-Ipratrop 3 mg / 0.5 (3 ml) UD INH SCH ×3 (00:34→07:33)
[2017-02-10] MEDS: Clindamycin 600 MG in Sodium Chloride 0.9% 100 ML IVPB SCH (00:37)
[2017-02-10] MEDS: Metoprolol 1 mg/ml Inj IVP SCH (04:57)
[2017-02-10] MEDS: Insulin Regular 100 units/ml SC SCH ×2 (06:50→11:40)
[2017-02-10 06:55] LABS: HEMOGLOBIN 9.7 g/dL (12.0-18.0); MEAN CELL VOLUME 79.3 fl (80.0-94.0); MEAN CORPUSCULAR HEMOGLOBIN 24.6 pg (27.0-31.0); RBC 3.96 Mil/uL (4.40-5.90); RED CELL DISTRIBUTION WIDTH 19.1 % (11.5-14.5); WHITE BLOOD COUNT 13.6 K/uL (4.8-10.8)
[2017-02-10 07:16] LABS: INR 1.9 (0.9-1.2); PROTHROMBIN TIME 21.4 Seconds (9.8-13.1)
[2017-02-10 08:18] VITALS: BP 122/63; TEMP 97.6
[2017-02-10 08:34] LABS: BLOOD UREA NITROGEN 39 mg/dl (9-20); GFR AFRICAN-AMERICAN > 60; GFR NON-AFRICAN AMERICAN 58
[2017-02-10 08:36] LABS: CALCIUM 7.4 mg/dL (8.4-10.2)
[2017-02-10] MEDS ORDERED: Potassium Chl 40 mEq in D5-NS 1,000 ML IV SCH (09:15)
[2017-02-10] MEDS: EPOETIN ALFA 10,000 UNIT/ML ML SC SCH (09:34)
[2017-02-10 09:49] LABS: MAGNESIUM 1.3 MG/DL (1.6-2.3)
[2017-02-10 10:31] LABS: ABG ALLEN TEST YES; ARTERIAL BLOOD GAS HCO3 30.4 mmol/L (21-28); ARTERIAL BLOOD GAS O2 CAPACITY 13.5 mL/dL (16-24); ARTERIAL BLOOD GAS O2 CONTENT 12.9 ML/dL (15-23); ARTERIAL BLOOD GAS O2 SAT 95.6 % (95-98); ARTERIAL BLOOD GAS PCO2 33 mm/Hg (35-45); ARTERIAL BLOOD GAS PH 7.56 (7.35-7.45); ARTERIAL BLOOD GAS PO2 61 mm/Hg (80-100); ARTERIAL BLOOD GAS TCO2 30.5 mmol/L (22-28)
--- NOTE | 2017-02-10 11:00 | RAD ---
HISTORY: tachypnea COMPARISON: 02/08/2017 FINDINGS: LUNGS: There is worsening of patchy multifocal airspace disease in both lungs. PLEURA: No significant pleural effusion identified, no pneumothorax apparent. CARDIOVASCULAR: Stable. OSSEOUS STRUCTURES: No significant abnormalities. VISUALIZED UPPER ABDOMEN: Normal. OTHER FINDINGS: None. IMPRESSION: Worsening multifocal airspace disease in both lungs which could represent pulmonary edema or multifocal pneumonia.
[2017-02-10] MEDS: Potassium CL 10mEq/100ml 100 ML IVPB SCH ×3 (11:21→13:28)
--- NOTE | 2017-02-10 11:34 | CP.PCM.PN ---
<Santosh Layne - Last Filed: 02/10/17 11:48> Subjective - Date & Time of Evaluation Date of Evaluation: 02/10/17 Time of Evaluation: 10:00 - Subjective Subjective: pt seen and examined at bedside this morning. No acute events overnight. On BiPap, worsening tachypnea and desating. Limited interview secondary to pts mental status. Afebrile, HR and BP stable. Objective - Vital Signs/Intake and Output Vital Signs (last 24 hours): Temp Pulse Resp BP Pulse Ox 97.6 F 90 18 122/63 95 02/10/17 08:18 02/10/17 10:00 02/10/17 08:18 02/10/17 08:18 02/10/17 08:18 - Medications Medications: Current Medications Acetaminophen (Tylenol 325mg Tab) 650 mg PO Q4 PRN PRN Reason: Fever >100.4 F Last Admin: 02/04/17 09:33 Dose: 650 mg Clopidogrel Bisulfate (Plavix) 75 mg PO DAILY [facility] Last Admin: 02/09/17 09:38 Dose: Not Given Donepezil HCl (Aricept) 10 mg PO DAILY [facility] Last Admin: 02/09/17 09:32 Dose: Not Given Epoetin Sheldon (Procrit) 10,000 unit SC MWF [facility] Last Admin: 02/08/17 09:00 Dose: 10,000 unit Ferrous Sulfate (Feosol) 325 mg PO DAILY [facility] Last Admin: 02/09/17 09:33 Dose: Not Given Furosemide (Lasix) 40 mg IV DAILY [facility] Clindamycin Phosphate 600 mg/ (Sodium Chloride) 104 mls @ 104 mls/hr IVPB Q8 [facility] Last Admin: 02/10/17 00:37 Dose: 104 mls/hr Cefepime HCl 1 gm/ Sodium (Chloride) 100 mls @ 100 mls/hr IVPB Q12 [facility] Last Admin: 02/09/17 21:32 Dose: 100 mls/hr Fluconazole (Diflucan Iv 200 Mg/100 Ml Ns) 100 mls @ 100 mls/hr IVPB DAILY [facility] Last Admin: 02/09/17 09:17 Dose: 100 mls/hr Potassium Chloride/Dextrose/Sod Cl (D5-Ns1l+40meq Kcl) 1,000 mls @ 42 mls/hr IV .[id number] [facility] Stop: 02/11/17 09:09 Potassium Chloride (Potassium Chloride 10 Meq/100 Ml) 100 mls @ 100 mls/hr IVPB Q1 [facility] Stop: 02/10/17 13:59 Last Admin: 02/10/17 11:21 Dose: 100 mls/hr Insulin Human Regular (Humulin R) 0 units SC ACHS [facility] PRN Reason: Protocol Last Admin: 02/10/17 06:50 Dose: Not Given Isosorbide Mononitrate (Imdur) 30 mg PO DAILY [facility] Last Admin: 02/09/17 09:50 Dose: Not Given Magnesium Hydroxide (Milk Of Magnesia) 30 ml PO DAILY [facility] Last Admin: 02/09/17 09:37 Dose: Not Given Megestrol Acetate (Megace) 800 mg PO DAILY [facility] Last Admin: 02/09/17 09:37 Dose: Not Given Memantine (Namenda) 10 mg PO BID [facility] Last Admin: 02/09/17 09:37 Dose: Not Given Metformin HCl (Glucophage) 1,000 mg PO BID [facility] Last Admin: 02/09/17 09:35 Dose: Not Given Metoprolol Tartrate (Lopressor) 5 mg IVP Q6 [facility] Last Admin: 02/10/17 04:57 Dose: 5 mg Multivitamins/Minerals (Therapeutic-M Tab) 1 tab PO DAILY [facility] Last Admin: 02/09/17 09:38 Dose: Not Given Pantoprazole Sodium (Protonix Ec Tab) 40 mg PO DAILY [facility] Last Admin: 02/09/17 09:38 Dose: Not Given Potassium Chloride (K-Dur 20 Meq Er Tab) 20 meq PO DAILY [facility] Last Admin: 02/09/17 09:36 Dose: Not Given - Labs Labs: 02/10/17 05:00 02/10/17 05:00 PT 21.4 Seconds (9.8-13.1) H 02/10/17 05:00 INR 1.9 (0.9-1.2) H 02/10/17 05:00 APTT 26.2 Seconds (25.6-37.1) 02/03/17 22:26 - Constitutional Appears: Non-toxic, No Acute Distress - Eye Exam Eye Exam: EOMI Pupil Exam: PERRL - Neck Exam Neck Exam: Full ROM - Respiratory Exam Respiratory Exam: Decreased Breath Sounds, Rales, NORMAL BREATHING PATTERN. absent: Accessory Muscle Use, Rhonchi, Wheezes, Respiratory Distress Additional comments: ON BIPAP - Cardiovascular Exam Cardiovascular Exam: REGULAR RHYTHM, RRR, +S1, +S2. absent: JVD - GI/Abdominal Exam GI & Abdominal Exam: Soft, Normal Bowel Sounds. absent: Tenderness - Extremities Exam Extremities Exam: Pedal Edema Assessment and Plan - Assessment and Plan (Free Text) Assessment: 1) COPD with acute lower respiratory infection and respiratory insufficiency -afebrile -Dr. Liriano currently following -pt currently on Bipap, have increased rate secondary to worsening tachypnea and desaturation -CXR today shows increased multifocal patchy airway disease in both lungs when compared to prior -CBC: 13.6>9.7/31.4<114 -Lactic acid: 2.0 -ABG pending -currently on IV abx -will monitor vitals/labs -discussed plan of care with daughter Akosua today, agreed for Hospice Consult 2) Hypokalemia -K+ today is 2.5 -K-runs x4 doses 10meq -changed IV Lasix 40mg BID to QD -D5 1/2 NS +40 meq KCL Mx fluids -Mag 1.3 -repeat BMP @ 15:00 then again next day AM 3) CHF with Left Venticular Dysfunction -Echo on 02/04: LV normal size, Ejection fraction 35-40%, global hypokinesis of LV, mild aortic stenosis, mild mitral regurg -diuresis via lasix, 40mg QD 4) 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 5) DVT PPX -Plavix 75mg QD <Tavares William - Last Filed: 02/16/17 09:28> Objective - Vital Signs/Intake and Output Vital Signs (last 24 hours): Temp Pulse Resp BP Pulse Ox 97.6 F 86 22 122/63 96 02/10/17 08:18 02/10/17 16:19 02/10/17 16:19 02/10/17 08:18 02/10/17 16:19 - Labs Labs: 02/10/17 05:00 02/10/17 05:00 PT 21.4 Seconds (9.8-13.1) H 02/10/17 05:00 INR 1.9 (0.9-1.2) H 02/10/17 05:00 APTT 26.2 Seconds (25.6-37.1) 02/03/17 22:26 Assessment and Plan (1) CHF (congestive heart failure) Status: Acute (2) Tachycardia Status: Acute (3) Pneumonia Status: Acute (4) Dementia Status: Chronic (5) Diabetes mellitus Status: Chronic (6) HTN (hypertension) Status: Chronic (7) Decubital ulcer Status: Acute - Assessment and Plan (Free Text) Plan: I was present durig evaluation and awaiting for hospice care transfer. Tavares William M.D.
--- NOTE | 2017-02-10 11:39 | CP.PCM.PN ---
Subjective - Date & Time of Evaluation Date of Evaluation: 02/10/17 Time of Evaluation: 11:30 - Subjective Subjective: still on bipap Objective - Vital Signs/Intake and Output Vital Signs (last 24 hours): Temp Pulse Resp BP Pulse Ox 97.6 F 90 18 122/63 95 02/10/17 08:18 02/10/17 10:00 02/10/17 08:18 02/10/17 08:18 02/10/17 08:18 - Medications Medications: Current Medications Acetaminophen (Tylenol 325mg Tab) 650 mg PO Q4 PRN PRN Reason: Fever >100.4 F Last Admin: 02/04/17 09:33 Dose: 650 mg Clopidogrel Bisulfate (Plavix) 75 mg PO DAILY [facility] Last Admin: 02/09/17 09:38 Dose: Not Given Donepezil HCl (Aricept) 10 mg PO DAILY [facility] Last Admin: 02/09/17 09:32 Dose: Not Given Epoetin Sheldon (Procrit) 10,000 unit SC MWF [facility] Last Admin: 02/08/17 09:00 Dose: 10,000 unit Ferrous Sulfate (Feosol) 325 mg PO DAILY [facility] Last Admin: 02/09/17 09:33 Dose: Not Given Furosemide (Lasix) 40 mg IV DAILY [facility] Clindamycin Phosphate 600 mg/ (Sodium Chloride) 104 mls @ 104 mls/hr IVPB Q8 [facility] Last Admin: 02/10/17 00:37 Dose: 104 mls/hr Cefepime HCl 1 gm/ Sodium (Chloride) 100 mls @ 100 mls/hr IVPB Q12 [facility] Last Admin: 02/09/17 21:32 Dose: 100 mls/hr Fluconazole (Diflucan Iv 200 Mg/100 Ml Ns) 100 mls @ 100 mls/hr IVPB DAILY [facility] Last Admin: 02/09/17 09:17 Dose: 100 mls/hr Potassium Chloride/Dextrose/Sod Cl (D5-Ns1l+40meq Kcl) 1,000 mls @ 42 mls/hr IV .[id number] [facility] Stop: 02/11/17 09:09 Potassium Chloride (Potassium Chloride 10 Meq/100 Ml) 100 mls @ 100 mls/hr IVPB Q1 [facility] Stop: 02/10/17 13:59 Last Admin: 02/10/17 11:21 Dose: 100 mls/hr Insulin Human Regular (Humulin R) 0 units SC ACHS [facility] PRN Reason: Protocol Last Admin: 02/10/17 06:50 Dose: Not Given Isosorbide Mononitrate (Imdur) 30 mg PO DAILY [facility] Last Admin: 02/09/17 09:50 Dose: Not Given Magnesium Hydroxide (Milk Of Magnesia) 30 ml PO DAILY [facility] Last Admin: 02/09/17 09:37 Dose: Not Given Megestrol Acetate (Megace) 800 mg PO DAILY [facility] Last Admin: 02/09/17 09:37 Dose: Not Given Memantine (Namenda) 10 mg PO BID [facility] Last Admin: 02/09/17 09:37 Dose: Not Given Metformin HCl (Glucophage) 1,000 mg PO BID [facility] Last Admin: 02/09/17 09:35 Dose: Not Given Metoprolol Tartrate (Lopressor) 5 mg IVP Q6 [facility] Last Admin: 02/10/17 04:57 Dose: 5 mg Multivitamins/Minerals (Therapeutic-M Tab) 1 tab PO DAILY [facility] Last Admin: 02/09/17 09:38 Dose: Not Given Pantoprazole Sodium (Protonix Ec Tab) 40 mg PO DAILY [facility] Last Admin: 02/09/17 09:38 Dose: Not Given Potassium Chloride (K-Dur 20 Meq Er Tab) 20 meq PO DAILY [facility] Last Admin: 02/09/17 09:36 Dose: Not Given - Labs Labs: 02/10/17 05:00 02/10/17 05:00 PT 21.4 Seconds (9.8-13.1) H 02/10/17 05:00 INR 1.9 (0.9-1.2) H 02/10/17 05:00 APTT 26.2 Seconds (25.6-37.1) 02/03/17 22:26 - GI/Abdominal Exam GI & Abdominal Exam: Soft, Normal Bowel Sounds Assessment and Plan - Assessment and Plan (Free Text) Assessment: 86 yo male with copd goals of care peg, if needed
--- NOTE | 2017-02-10 12:22 | CP.PCM.PN ---
Subjective - Date & Time of Evaluation Date of Evaluation: 02/10/17 Time of Evaluation: 12:22 - Subjective Subjective: DETERIORATING STILL ON BIPAP FOR HOSPICE EVALUATION Objective - Vital Signs/Intake and Output Vital Signs (last 24 hours): Temp Pulse Resp BP Pulse Ox 97.6 F 91 H 18 122/63 95 02/10/17 08:18 02/10/17 11:35 02/10/17 08:18 02/10/17 08:18 02/10/17 08:18 - Medications Medications: Current Medications Acetaminophen (Tylenol 325mg Tab) 650 mg PO Q4 PRN PRN Reason: Fever >100.4 F Last Admin: 02/04/17 09:33 Dose: 650 mg Clopidogrel Bisulfate (Plavix) 75 mg PO DAILY [facility] Last Admin: 02/09/17 09:38 Dose: Not Given Donepezil HCl (Aricept) 10 mg PO DAILY [facility] Last Admin: 02/09/17 09:32 Dose: Not Given Epoetin Sheldon (Procrit) 10,000 unit SC MWF [facility] Last Admin: 02/08/17 09:00 Dose: 10,000 unit Ferrous Sulfate (Feosol) 325 mg PO DAILY [facility] Last Admin: 02/09/17 09:33 Dose: Not Given Furosemide (Lasix) 40 mg IV DAILY [facility] Clindamycin Phosphate 600 mg/ (Sodium Chloride) 104 mls @ 104 mls/hr IVPB Q8 [facility] Last Admin: 02/10/17 00:37 Dose: 104 mls/hr Cefepime HCl 1 gm/ Sodium (Chloride) 100 mls @ 100 mls/hr IVPB Q12 [facility] Last Admin: 02/09/17 21:32 Dose: 100 mls/hr Fluconazole (Diflucan Iv 200 Mg/100 Ml Ns) 100 mls @ 100 mls/hr IVPB DAILY [facility] Last Admin: 02/09/17 09:17 Dose: 100 mls/hr Potassium Chloride/Dextrose/Sod Cl (D5-Ns1l+40meq Kcl) 1,000 mls @ 42 mls/hr IV .[id number] [facility] Stop: 02/11/17 09:09 Potassium Chloride (Potassium Chloride 10 Meq/100 Ml) 100 mls @ 100 mls/hr IVPB Q1 [facility] Stop: 02/10/17 13:59 Last Admin: 02/10/17 11:21 Dose: 100 mls/hr Insulin Human Regular (Humulin R) 0 units SC ACHS [facility] PRN Reason: Protocol Last Admin: 02/10/17 06:50 Dose: Not Given Isosorbide Mononitrate (Imdur) 30 mg PO DAILY [facility] Last Admin: 02/09/17 09:50 Dose: Not Given Magnesium Hydroxide (Milk Of Magnesia) 30 ml PO DAILY [facility] Last Admin: 02/09/17 09:37 Dose: Not Given Megestrol Acetate (Megace) 800 mg PO DAILY [facility] Last Admin: 02/09/17 09:37 Dose: Not Given Memantine (Namenda) 10 mg PO BID [facility] Last Admin: 02/09/17 09:37 Dose: Not Given Metformin HCl (Glucophage) 1,000 mg PO BID [facility] Last Admin: 02/09/17 09:35 Dose: Not Given Metoprolol Tartrate (Lopressor) 5 mg IVP Q6 [facility] Last Admin: 02/10/17 04:57 Dose: 5 mg Multivitamins/Minerals (Therapeutic-M Tab) 1 tab PO DAILY [facility] Last Admin: 02/09/17 09:38 Dose: Not Given Pantoprazole Sodium (Protonix Ec Tab) 40 mg PO DAILY [facility] Last Admin: 02/09/17 09:38 Dose: Not Given Potassium Chloride (K-Dur 20 Meq Er Tab) 20 meq PO DAILY [facility] Last Admin: 02/09/17 09:36 Dose: Not Given - Labs Labs: 02/10/17 05:00 02/10/17 05:00 PT 21.4 Seconds (9.8-13.1) H 02/10/17 05:00 INR 1.9 (0.9-1.2) H 02/10/17 05:00 APTT 26.2 Seconds (25.6-37.1) 02/03/17 22:26 - Constitutional Appears: Chronically Ill - Head Exam Head Exam: ATRAUMATIC, NORMAL INSPECTION, NORMOCEPHALIC - Eye Exam Eye Exam: EOMI, Normal appearance, PERRL Pupil Exam: NORMAL ACCOMODATION, PERRL - ENT Exam ENT Exam: Mucous Membranes Moist, Normal Exam - Neck Exam Neck Exam: Full ROM, Normal Inspection. absent: Lymphadenopathy - Respiratory Exam Respiratory Exam: Decreased Breath Sounds, Rales, Wheezes - Cardiovascular Exam Cardiovascular Exam: Tachycardia, +S1, +S2. absent: Murmur - GI/Abdominal Exam GI & Abdominal Exam: Soft, Normal Bowel Sounds. absent: Tenderness - Rectal Exam Rectal Exam: NORMAL INSPECTION - Extremities Exam Extremities Exam: Full ROM, Normal Capillary Refill, Normal Inspection. absent : Joint Swelling, Pedal Edema - Back Exam Back Exam: NORMAL INSPECTION - Skin Skin Exam: Dry, Intact, Normal Color, Warm Assessment and Plan - Assessment and Plan (Free Text) Assessment: RESPIRATORY FAILURE Plan: SUPPORTIVE CARE PROGNOSIS IS POOR
--- NOTE | 2017-02-11 06:35 | CON ---
DATE: 02/09/2017 REFERRING PHYSICIAN: Dr. Valerio REASON FOR CONSULTATION: Dysphagia feeding tube placement. HISTORY OF PRESENT ILLNESS: This is an 86-year-old male with past medical history which includes COPD, CABG, dementia that is now present. Clinical history is obtained via chart. He is on BIPAP now for shortness of breath and COPD exacerbation. GI was called for failure to swallow and the need for a feeding tube. Patient's clinical history is obtained via chart. PAST MEDICAL HISTORY: As above. PAST SURGICAL HISTORY: As above. MEDICATIONS: Reviewed. *------*. PHYSICAL EXAMINATION GENERAL: Pleasant elderly appearing male lying comfortably. VITAL SIGNS: Grossly remarkable. HEENT: Head is normocephalic and atraumatic. Eyes, pupils equal and reactive to light. No conjunctivae or scleral icterus. NECK: Supple. Normal range of motion. No lymphadenopathy. LUNGS: Coarse breath sounds bilaterally. HEART: S1, S2, regular rate and rhythm. ABDOMEN: Soft, nontender, bowel sounds present. AND RECTAL: Exam deferred. EXTREMITIES: *------* x1. LABORATORY DATA: Reviewed. WBC 13.8, hemoglobin 9.3, hematocrit 31.4, platelet count of 114. INR 1.9. Potassium 2.5. ASSESSMENT AND PLAN: This is an 86-year-old man with dysphagia. At this point, from GI standpoint, he is stable for sedation. He is on BIPAP and obviously decompensated off of it. INR is also elevated. So, we will need to optimize his pulmonary status. Once that is done, we will speak with family regarding the PEG tube placement. For now, n.p.o. until BIPAP is resolved. Thank you for the consult. Westley Umaña MD/ PhD cc: *------*
[2017-02-11 11:51] VITALS: PULSE 86; RESP 22; O2SAT 96
--- NOTE | 2017-02-16 09:23 | CP.PCM.PN ---
Subjective - Date & Time of Evaluation Date of Evaluation: 02/06/17 Time of Evaluation: 09:30 - Subjective Subjective: Patient still with tachycardia Very SOB No fever On diuretic On Bipap Objective - Vital Signs/Intake and Output Vital Signs (last 24 hours): Temp Pulse Resp BP Pulse Ox 97.6 F 86 22 122/63 96 02/10/17 08:18 02/10/17 16:19 02/10/17 16:19 02/10/17 08:18 02/10/17 16:19 - Labs Labs: 02/10/17 05:00 02/10/17 05:00 PT 21.4 Seconds (9.8-13.1) H 02/10/17 05:00 INR 1.9 (0.9-1.2) H 02/10/17 05:00 APTT 26.2 Seconds (25.6-37.1) 02/03/17 22:26 - Head Exam Head Exam: NORMAL INSPECTION - Eye Exam Eye Exam: Normal appearance - ENT Exam ENT Exam: Mucous Membranes Moist - Respiratory Exam Respiratory Exam: Decreased Breath Sounds, Rales - Cardiovascular Exam Cardiovascular Exam: Tachycardia - GI/Abdominal Exam GI & Abdominal Exam: Normal Bowel Sounds Assessment and Plan (1) CHF (congestive heart failure) Status: Acute (2) Tachycardia Status: Acute (3) Pneumonia Status: Acute (4) Dementia Status: Chronic (5) Diabetes mellitus Status: Chronic (6) HTN (hypertension) Status: Chronic (7) Decubital ulcer Status: Acute - Assessment and Plan (Free Text) Plan: contmeds Cont diuretic will discuss with family re hospice cont resp support
--- NOTE | 2017-02-16 09:25 | CP.PCM.PN ---
Subjective - Date & Time of Evaluation Date of Evaluation: 02/07/17 Time of Evaluation: 09:40 - Subjective Subjective: Patient continues to have SOB and recurrent tachycardia On Bipap Has no fever. Objective - Vital Signs/Intake and Output Vital Signs (last 24 hours): Temp Pulse Resp BP Pulse Ox 97.6 F 86 22 122/63 96 02/10/17 08:18 02/10/17 16:19 02/10/17 16:19 02/10/17 08:18 02/10/17 16:19 - Labs Labs: 02/10/17 05:00 02/10/17 05:00 PT 21.4 Seconds (9.8-13.1) H 02/10/17 05:00 INR 1.9 (0.9-1.2) H 02/10/17 05:00 APTT 26.2 Seconds (25.6-37.1) 02/03/17 22:26 - Head Exam Head Exam: NORMAL INSPECTION - ENT Exam ENT Exam: Mucous Membranes Dry - Respiratory Exam Respiratory Exam: Decreased Breath Sounds, Rales - Cardiovascular Exam Cardiovascular Exam: Tachycardia - GI/Abdominal Exam GI & Abdominal Exam: Normal Bowel Sounds Assessment and Plan (1) CHF (congestive heart failure) Status: Acute (2) Tachycardia Status: Acute (3) Pneumonia Status: Acute (4) Dementia Status: Chronic (5) Diabetes mellitus Status: Chronic (6) HTN (hypertension) Status: Chronic (7) Decubital ulcer Status: Acute - Assessment and Plan (Free Text) Plan: Cont med for Hospice care eval cont tx cont resp support
--- NOTE | 2017-02-16 09:27 | CP.PCM.PN ---
Subjective - Date & Time of Evaluation Date of Evaluation: 02/09/17 Time of Evaluation: 09:05 - Subjective Subjective: Patient on bipap has been stable still with episodes of tachycardia Has no fever. Objective - Vital Signs/Intake and Output Vital Signs (last 24 hours): Temp Pulse Resp BP Pulse Ox 97.6 F 86 22 122/63 96 02/10/17 08:18 02/10/17 16:19 02/10/17 16:19 02/10/17 08:18 02/10/17 16:19 - Labs Labs: 02/10/17 05:00 02/10/17 05:00 PT 21.4 Seconds (9.8-13.1) H 02/10/17 05:00 INR 1.9 (0.9-1.2) H 02/10/17 05:00 APTT 26.2 Seconds (25.6-37.1) 02/03/17 22:26 - Head Exam Head Exam: NORMAL INSPECTION - ENT Exam ENT Exam: Mucous Membranes Moist - Respiratory Exam Respiratory Exam: Decreased Breath Sounds, Rales - Cardiovascular Exam Cardiovascular Exam: Tachycardia - GI/Abdominal Exam GI & Abdominal Exam: Normal Bowel Sounds Assessment and Plan (1) CHF (congestive heart failure) Status: Acute (2) Tachycardia Status: Acute (3) Pneumonia Status: Acute (4) Dementia Status: Chronic (5) Diabetes mellitus Status: Chronic (6) HTN (hypertension) Status: Chronic (7) Decubital ulcer Status: Acute - Assessment and Plan (Free Text) Plan: Cont meds Cont tx For hospice care
--- NOTE | 2017-02-16 09:31 | CP.PCM.DIS ---
Provider - Provider Date of Admission: 02/04/17 17:57 Attending physician: Tavares William MD Time Spent in preparation of Discharge (in minutes): 15 Diagnosis - Discharge Diagnosis (1) CHF (congestive heart failure) Status: Acute (2) Tachycardia Status: Acute (3) Pneumonia Status: Acute (4) Dementia Status: Chronic (5) Diabetes mellitus Status: Chronic (6) HTN (hypertension) Status: Chronic (7) Decubital ulcer Status: Acute Hospital Course - Lab Results Lab Results: Micro Results 02/05/17 15:41 Sputum Induced Gram Stain - Final 02/05/17 15:41 Sputum Induced Sputum Culture - Final NORMAL ORAL AMADEO Most Recent Lab Values WBC 13.6 K/uL (4.8-10.8) H D 02/10/17 05:00 RBC 3.96 Mil/uL (4.40-5.90) L 02/10/17 05:00 Hgb 9.7 g/dL (12.0-18.0) L 02/10/17 05:00 Hct 31.4 % (35.0-51.0) L 02/10/17 05:00 MCV 79.3 fl (80.0-94.0) L 02/10/17 05:00 MCH 24.6 pg (27.0-31.0) L 02/10/17 05:00 MCHC 31.0 g/dL (33.0-37.0) L 02/10/17 05:00 RDW 19.1 % (11.5-14.5) H 02/10/17 05:00 Plt Count 114 K/uL (130-400) L 02/10/17 05:00 MPV 8.8 fl (7.2-11.7) 02/05/17 06:30 Neut % (Auto) 84.5 % (50.0-75.0) H 02/05/17 06:30 Lymph % (Auto) 8.6 % (20.0-40.0) L 02/05/17 06:30 [place] % (Auto) 5.8 % (0.0-10.0) 02/05/17 06:30 Eos % (Auto) 0.8 % (0.0-4.0) 02/05/17 06:30 Baso % (Auto) 0.3 % (0.0-2.0) 02/05/17 06:30 Neut # 7.3 K/uL (1.8-7.0) H 02/05/17 06:30 Lymph # 0.7 K/uL (1.0-4.3) L 02/05/17 06:30 [place] # 0.5 K/uL (0.0-0.8) 02/05/17 06:30 Eos # 0.1 K/uL (0.0-0.7) 02/05/17 06:30 Baso # 0.0 K/uL (0.0-0.2) 02/05/17 06:30 Neutrophils % (Manual) 88 % (42-75) H 02/03/17 22:26 Lymphocytes % (Manual) 9 % (20-50) L 02/03/17 22:26 Monocytes % (Manual) 1 % (0-10) 02/03/17 22:26 Eosinophils % (Manual) 1 % (0-7) 02/03/17 22:26 Basophils % (Manual) 1 % (0-2) 02/03/17 22:26 Platelet Estimate Normal (NORMAL) 02/03/17 22:26 PT 21.4 Seconds (9.8-13.1) H 02/10/17 05:00 INR 1.9 (0.9-1.2) H 02/10/17 05:00 APTT 26.2 Seconds (25.6-37.1) 02/03/17 22:26 pCO2 33 mm/Hg (35-45) L 02/10/17 09:59 pO2 61 mm/Hg (80-100) L 02/10/17 09:59 HCO3 30.4 mmol/L (21-28) H 02/10/17 09:59 ABG pH 7.56 (7.35-7.45) H 02/10/17 09:59 ABG Total CO2 30.5 mmol/L (22-28) H 02/10/17 09:59 ABG O2 Saturation 95.6 % (95-98) 02/10/17 09:59 ABG O2 Content 12.9 ML/dL (15-23) L 02/10/17 09:59 ABG Base Excess 7.1 mmol/L (-2.0-3.0) H 02/10/17 09:59 ABG Hemoglobin 10.0 g/dL (11.7-17.4) L 02/10/17 09:59 ABG Carboxyhemoglobin 2.5 % (0.5-1.5) H 02/10/17 09:59 POC ABG HHb (Measured) 4.2 % (0.0-5.0) 02/10/17 09:59 ABG Methemoglobin 2.0 % (0.0-3.0) 02/10/17 09:59 ABG O2 Capacity 13.5 mL/dL (16-24) L 02/10/17 09:59 Álvaro Test Yes 02/10/17 09:59 A-a O2 Difference 254.0 mm/Hg 02/10/17 09:59 Hgb O2 Saturation 91.3 % (95.0-98.0) L 02/10/17 09:59 Vent Mode Bipap 02/10/17 09:59 Mechanical Rate 18 02/10/17 09:59 FiO2 50.0 % 02/10/17 09:59 Inspiratory BiPAP 15 02/10/17 09:59 Expiratory BiPAP 7 02/10/17 09:59 Blood Gas Comments Bipap 15/7,rr-28, 50% 02/10/17 09:59 Crit Value Called To Tavares young r.n. 02/10/17 09:59 Crit Value Called By Danya 02/10/17 09:59 Crit Value Read Back Y 02/10/17 09:59 Blood Gas Notified Time 1031 02/10/17 09:59 Sodium 156 mmol/l (132-148) H 02/10/17 05:00 Potassium 2.5 MMOL/L (3.6-5.0) L* D 02/10/17 05:00 Chloride 113 mmol/L (98-107) H 02/10/17 05:00 Carbon Dioxide 27 mmol/L (22-30) 02/10/17 05:00 Anion Gap 19 (10-20) 02/10/17 05:00 BUN 39 mg/dl (9-20) H 02/10/17 05:00 Creatinine 1.2 mg/dL (0.8-1.5) 02/10/17 05:00 Est GFR ( Amer) > 60 02/10/17 05:00 Est GFR (Non-Af Amer) 58 02/10/17 05:00 POC Glucose (mg/dL) 193 mg/dL (65-110) H 02/10/17 10:57 Random Glucose 173 mg/dL (75-110) H 02/10/17 05:00 Lactic Acid 2.0 MMOL/L (0.7-2.1) 02/10/17 10:50 Calcium 7.4 mg/dL (8.4-10.2) L 02/10/17 05:00 Magnesium 1.3 MG/DL (1.6-2.3) L 02/10/17 05:00 Total Bilirubin 0.5 mg/dl (0.2-1.3) 02/05/17 06:30 AST 22 U/L (17-59) 02/05/17 06:30 ALT 25 U/L (21-72) 02/05/17 06:30 Alkaline Phosphatase 97 U/L (38-126) 02/05/17 06:30 Troponin I 0.2170 ng/mL (0.00-0.120) H* 02/04/17 14:30 NT-Pro-B Natriuret Pep 70226 pg/ml (0-900) H 02/03/17 22:26 Total Protein 6.0 G/DL (6.3-8.2) L 02/05/17 06:30 Albumin 2.5 g/dL (3.5-5.0) L 02/05/17 06:30 Globulin 3.5 gm/dL (2.2-3.9) 02/05/17 06:30 Albumin/Globulin Ratio 0.7 (1.0-2.1) L 02/05/17 06:30 - Hospital Course Hospital Course: This is a 86 y/o male admitted for chest pain and SOB. Noted to be in CHF also noted to have infiltarte. Started on IV diuretics and antibiotics Cardiology and pulmonary were called and evaluated patient. He was placed on BIPAP. He had episodes of SOB and tachycardia. medical treatment was optimized including decubiti ulcer tx. but patient remained in grave condition. Family agreed to hospice care and was transferred under hospice care. Discharge Exam - Head Exam Head Exam: NORMAL INSPECTION - Eye Exam Eye Exam: Normal appearance - Respiratory Exam Respiratory Exam: Decreased Breath Sounds, Rales, Rhonchi - Cardiovascular Exam Cardiovascular Exam: Tachycardia - GI/Abdominal Exam GI & Abdominal Exam: Normal Bowel Sounds Discharge Plan - Follow Up Plan Condition: GUARDED Disposition: HOSPICE - MEDICAL FACILITY Additional Instructions: for hospice care
== END 2017-02-10 14:25 | disposition hospice, inpatient (51) | DRG 291 ==
LOC: H.ER 21:15 → H.ERHOLD 22:11 → H.TEL 02-04 02:44 → OBSVTOIN 02-04 17:57
PROVIDERS: ADMIT Family Medicine; ATTEND Family Medicine
PROC: 5A09557 Assistance with Respiratory Ventilation, Greater than 96 Consecutive Hours, Continuous Positive Airway Pressure (ICD-10-PCS; principal; 2017-02-05)
DX: I13.2 Hypertensive heart and chronic kidney disease with heart failure and with stage 5 chronic kidney disease, or end stage renal disease (principal); I50.23 Acute on chronic systolic (congestive) heart failure; J96.00 Acute respiratory failure, unspecified whether with hypoxia or hypercapnia; J18.9 Pneumonia, unspecified organism; L89.220 Pressure ulcer of left hip, unstageable; B49 Unspecified mycosis; E11.52 Type 2 diabetes mellitus with diabetic peripheral angiopathy with gangrene; J44.0 Chronic obstructive pulmonary disease with (acute) lower respiratory infection; N18.6 End stage renal disease; E11.22 Type 2 diabetes mellitus with diabetic chronic kidney disease; J44.1 Chronic obstructive pulmonary disease with (acute) exacerbation; G20 Parkinson's disease; G30.9 Alzheimer's disease, unspecified; F02.80 Dementia in other diseases classified elsewhere, unspecified severity, without behavioral disturbance, psychotic disturbance, mood disturbance, and anxiety; E78.00 Pure hypercholesterolemia, unspecified; E87.6 Hypokalemia; I08.0 Rheumatic disorders of both mitral and aortic valves; I25.10 Atherosclerotic heart disease of native coronary artery without angina pectoris; I73.9 Peripheral vascular disease, unspecified; M81.0 Age-related osteoporosis without current pathological fracture; R13.10 Dysphagia, unspecified; Z66 Do not resuscitate; Z79.02 Long term (current) use of antithrombotics/antiplatelets; Z79.899 Other long term (current) drug therapy; Z83.3 Family history of diabetes mellitus; Z85.46 Personal history of malignant neoplasm of prostate; Z95.1 Presence of aortocoronary bypass graft; D64.9 Anemia, unspecified; F29 Unspecified psychosis not due to a substance or known physiological condition; Z79.84 Long term (current) use of oral hypoglycemic drugs; R00.0 Tachycardia, unspecified; R06.82 Tachypnea, not elsewhere classified; R45.1 Restlessness and agitation; Z51.5 Encounter for palliative care; Z89.412 Acquired absence of left great toe; T87.54 Necrosis of amputation stump, left lower extremity

== ENCOUNTER 2017-02-10 14:29 | Inpatient (IN) | payer OTHER, MEDICARE ==
[2017-02-10 14:39] VITALS: BMI 22.3
[2017-02-10] MEDS ORDERED: Morphine 4 MG/ML VIAL IVP PRN (14:44)
[2017-02-10] MEDS ORDERED: Scopolamine 1.5 mg/24 hr Patch TD SCH (14:45)
[2017-02-10] MEDS ORDERED: Morphine 100 MG in Sodium Chloride 0.9% 100 ML IVPB SCH (14:45)
--- NOTE | 2017-02-10 14:51 | CP.PCM.PCO ---
Assessment/Plan - Assessment and Plan (Free Text) Assessment: [facility] Liajaylon Gongora has met with family and all in agreement to start hospice care. Pt admitted under inpatient hospice. Orders entered for comfort measures, discussed with Dr William, pt's attending. Met with family and all questions answered.
--- NOTE | 2017-02-10 15:22 | CP.PCM.PN ---
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 Pt is in NAD and is alert and awake. Pt appears to be resting comfortably in his bed with no distress. Pt's dressing is clean, dry and intact. Objective - Medications Medications: Current Medications Acetaminophen (Tylenol 325mg Tab) 650 mg PO Q6 PRN PRN Reason: Fever >100.4 F Bisacodyl (Dulcolax) 10 mg [place] DAILY PRN PRN Reason: Constipation Morphine Sulfate 100 mg/ (Sodium Chloride) 100 mls @ 1 mls/hr IVPB .Q24H [facility]; 1 MG/HR PRN Reason: Protocol Lorazepam (Ativan) 1 mg IVP Q6 PRN PRN Reason: Restlessness Morphine Sulfate (Morphine) 2 mg IVP Q6 PRN PRN Reason: Pain, severe (8-10) Scopolamine (Transderm-Scop) 1 patch TD Q3D [facility] - Constitutional Appears: Well, Toxic, No Acute Distress - Extremities Exam Additional comments: Left Lower Extremity focused: VASC: DP pulses are non-palpable, PT pulses are 1/4, TARE WEIGHER: < 4 sec to 4 digits, TG: cool to cool, no pitting or non-pitting edema noted DERM: dry necrosis with hyperpigmented skin noted on the distal medial aspect of the forefoot at the surgical site, healthy skin noted surrounding the hyperpigmented skin on the forefoot, no active drainage noted, no purulence, no dehiscence noted, hyperpigmented skin shwoing skin necrosis noted on the lateral aspect of the foot as well as superior to lateral mal, no malodor, no surrounding erythema, no clinical suspicion of active infection noted at this time NEURO: Protective sensation grossly diminished ORTHO: hallux amputation noted, no pain on palpation of previously surgical site - Neurological Exam Neurological Exam: Alert, Awake, Oriented x3 - Psychiatric Exam Psychiatric exam: Normal Affect, Normal Mood Assessment and Plan - Assessment and Plan (Free Text) Assessment: 86 y/o male seen at bedside for 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 Navarrete Vitals and labs reviewed (afebrile, WBC @ 13.6 today) Dressing applied using betadine, DSD and kurlix No suspicion of active infection from the foot noted at this time Podiatry to follow while patient is in house
[2017-02-10] MEDS: Morphine 100 MG in Sodium Chloride 0.9% 100 ML IVPB SCH (16:54)
[2017-02-11] MEDS: Morphine 100 MG in Sodium Chloride 0.9% 100 ML IVPB SCH (16:25)
[2017-02-12] MEDS: Artificial Tears Opht Soln OU PRN ×3 (10:12→21:23)
--- NOTE | 2017-02-12 10:51 | CP.PCM.PN ---
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 Pt seen resting bed at time of visit , eyes open but unresponsive to verbal stimuli. Appears to be comfortable and in NAD. No acute events overnight. Objective - Vital Signs/Intake and Output Vital Signs (last 24 hours): Temp Pulse Resp BP Pulse Ox 99 F 91 H 18 109/51 L 94 L 02/12/17 08:07 02/12/17 08:07 02/12/17 08:07 02/12/17 08:07 02/12/17 08:07 - Medications Medications: Current Medications Acetaminophen (Tylenol 650 Mg Supp) [address] Q6 PRN PRN Reason: Fever >100.4 F Artificial Tears (Artificial Tears) 2 drop OU Q4 PRN PRN Reason: Dry eyes Last Admin: 02/12/17 10:12 Dose: 2 drop Bisacodyl (Dulcolax) [address] DAILY PRN PRN Reason: Constipation Morphine Sulfate 100 mg/ (Sodium Chloride) 100 mls @ 1 mls/hr IVPB .Q24H [facility]; 1 MG/HR PRN Reason: Protocol Last Admin: 02/11/17 16:25 Dose: 1 mls/hr Lorazepam (Ativan) 1 mg IVP Q6 PRN PRN Reason: Restlessness Last Admin: 02/10/17 17:08 Dose: 1 mg Morphine Sulfate (Morphine) 2 mg IVP Q6 PRN PRN Reason: Pain, severe (8-10) Scopolamine (Transderm-Scop) 1 patch TD Q3D [facility] Last Admin: 02/10/17 17:14 Dose: 1 patch - Constitutional Appears: Non-toxic, No Acute Distress, Chronically Ill - Extremities Exam Additional comments: Left foot exam: VASC: DP pulses are non-palpable, PT pulses are 1/4, CARDING SUPERVISOR: < 4 sec to 4 digits, TG: cool to cool, no pitting or non-pitting edema noted DERM: dry necrosis with hyperpigmented skin noted on the distal medial aspect of the forefoot at the surgical site, no active drainage noted, no purulence, no dehiscence noted, hyperpigmented skin shoiwng skin necrosis noted on the lateral aspect of the foot as well as superior to lateral mal, no malodor, no surrounding erythema, no clinical suspicion of active infection noted at this time NEURO:protective sensation grossly diminished ORTHO: hallux amputation noted, no pain on palpation of foot - Neurological Exam Neurological Exam: absent: Alert, Awake, Oriented x3 - Psychiatric Exam Additional comments: unable to obtain Assessment and Plan - Assessment and Plan (Free Text) Assessment: 86 y/o male seen at bedside for dry gangrene 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 Navarrete chart, labs and vitals reviewed Vitals and labs reviewed (afebrile, WBC @ 13.6 02/10/17) foot redressed with betadine and DSD, c/w offloading heel cushion Podiatry to follow while patient is in house
[2017-02-12] MEDS: Morphine 100 MG in Sodium Chloride 0.9% 100 ML IVPB SCH (16:00)
[2017-02-13] MEDS: Artificial Tears Opht Soln OU PRN ×2 (05:57→21:45)
[2017-02-13] MEDS: Morphine 100 MG in Sodium Chloride 0.9% 100 ML IVPB SCH (17:32)
[2017-02-13] MEDS: Scopolamine 1.5 mg/24 hr Patch TD SCH (17:32)
--- NOTE | 2017-02-13 22:25 | CP.PCM.PN ---
Subjective - Date & Time of Evaluation Date of Evaluation: 02/13/17 Time of Evaluation: 10:10 - Subjective Subjective: 86 year old male patient seen at bedside with attending, Dr. Navarrete. Rolando is bedside with patient upon arrival. 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 Patient resting, with eyes open but unresponsive to stimuli. Appears to be NAD. Grandson and nursing deny any acute events overnight. Objective - Vital Signs/Intake and Output Vital Signs (last 24 hours): Temp Pulse Resp BP Pulse Ox 99.8 F H 83 18 109/68 95 02/13/17 19:37 02/13/17 19:37 02/13/17 19:37 02/13/17 19:37 02/13/17 19:37 - Medications Medications: Current Medications Acetaminophen (Tylenol 650 Mg Supp) 650 mg [place] Q6 PRN PRN Reason: Fever >100.4 F Artificial Tears (Artificial Tears) 2 drop OU Q4 PRN PRN Reason: Dry eyes Last Admin: 02/13/17 21:45 Dose: 2 drop Bisacodyl (Dulcolax) 10 mg [place] DAILY PRN PRN Reason: Constipation Morphine Sulfate 100 mg/ (Sodium Chloride) 100 mls @ 1 mls/hr IVPB .Q24H [facility]; 1 MG/HR PRN Reason: Protocol Last Admin: 02/13/17 17:32 Dose: 1 mls/hr Lorazepam (Ativan) 1 mg IVP Q6 PRN PRN Reason: Restlessness Last Admin: 02/10/17 17:08 Dose: 1 mg Morphine Sulfate (Morphine) 2 mg IVP Q6 PRN PRN Reason: Pain, severe (8-10) Scopolamine (Transderm-Scop) 1 patch TD Q3D@1730 [facility] Last Admin: 02/13/17 17:32 Dose: 1 patch - Constitutional Appears: Non-toxic, No Acute Distress - Extremities Exam Additional comments: LLE focused physical exam: Vasc: DP pulse nonpalpable. PT pulse 1/4. CFT increased. TG cool to cool. Neuro: Protective sensation diminished. Derm: dry necrosis with hyperpigmented skin noted on the distal medial aspect of the forefoot at the surgical site, no active drainage noted, no purulence, no dehiscence noted, hyperpigmented skin shoiwng skin necrosis noted on the lateral aspect of the foot as well as superior to lateral mal, no malodor, no surrounding erythema, no clinical suspicion of active infection noted at this time Ortho: Hallux amputation. No pain on palpation noted to foot. 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 Navarrete Charts, labs, vitals reviewed: 99.8F Left foot dressed with betadine soaked 4x4s, ABD, and chidi. C/w offloading heel cushion Podiatry will continue to follow patient while in house.
--- NOTE | 2017-02-14 11:17 | CP.PCM.HP ---
<Santosh Layne - Last Filed: 02/14/17 12:37> History of Present Illness - History of Present Illness History of Present Illness: 86 y/o male with a PMHx of HLD, HTN, DM, CHF, who has been admitted to telemetry for inpatient hospice care. Pt was admitted earlier for worsening pneumonia and respiratory failure that was refractory to treatment. Present on Admission - Present on Admission Any Indicators Present on Admission: No Decubitus Ulcer Present: Yes Review of Systems - Review of Systems Systems not reviewed;Unavailable: Dementia, Altered Mental Status Past Patient History - Infectious Disease Hx of Infectious Diseases: None - Past Medical History & Family History Past Medical History?: Yes - Past Social History Smoking Status: Never Smoked - CARDIAC Hx Cardiac Disorders: Yes Hx Hypercholesterolemia: Yes Hx Hypertension: Yes - PULMONARY Hx Respiratory Disorders: Yes Hx Pneumonia: Yes - NEUROLOGICAL Hx Neurological Disorder: No - HEENT Hx HEENT Problems: No - RENAL Hx Chronic Kidney Disease: No - ENDOCRINE/METABOLIC Hx Endocrine Disorders: Yes Hx Diabetes Mellitus Type 2: Yes - HEMATOLOGICAL/ONCOLOGICAL Hx Blood Disorders: Yes Hx Anemia: Yes Hx Cancer: Yes (PROSTATE) - INTEGUMENTARY Hx Dermatological Problems: Yes (GANGRENE LEFT FOOT) - MUSCULOSKELETAL/RHEUMATOLOGICAL Hx Musculoskeletal Disorders: No Hx Falls: No - GASTROINTESTINAL Hx Gastrointestinal Disorders: No - GENITOURINARY/GYNECOLOGICAL Hx Genitourinary Disorders: Yes Hx Prostate Cancer: Yes - PSYCHIATRIC Hx Psychophysiologic Disorder: No Hx Substance Use: No - SURGICAL HISTORY Hx Surgeries: Yes - ANESTHESIA Hx Anesthesia: Yes Hx Anesthesia Reactions: No Hx Malignant Hyperthermia: No Meds Allergies/Adverse Reactions: Allergies Allergy/AdvReac Type Severity Reaction Status Date / Time No Known Allergies Allergy Verified 12/31/16 14:17 Physical Exam - Constitutional Appears: Non-toxic, No Acute Distress - Eye Exam Eye Exam: EOMI Pupil Exam: PERRL - ENT Exam ENT Exam: Mucous Membranes Moist - Respiratory Exam Respiratory Exam: Accessory Muscle Use, Decreased Breath Sounds, Rales, Wheezes. absent: Clear to Auscultation Bilateral, NORMAL BREATHING PATTERN - Cardiovascular Exam Cardiovascular Exam: Tachycardia, REGULAR RHYTHM, +S1, +S2. absent: Bradycardia , Diastolic murmur, Gallop, JVD, Systolic Murmur - GI/Abdominal Exam GI & Abdominal Exam: Normal Bowel Sounds, Soft. absent: Tenderness - Extremities Exam Additional comments: left foot with dry gangrene - Neurological Exam Neurological exam: Altered Results - Vital Signs Recent Vital Signs: Last Vital Signs Temp 98.9 F 02/14/17 08:22 Pulse 91 H 02/14/17 08:22 Resp 18 02/14/17 08:22 BP 117/65 02/14/17 08:22 Pulse Ox 95 02/14/17 08:22 Assessment & Plan (1) Hospice care Assessment and Plan: admitted for inpatient hospice care Status: Acute Priority: High <Tavares William - Last Filed: 02/16/17 09:09> Results - Vital Signs Recent Vital Signs: Last Vital Signs Temp 100.8 F H 02/16/17 08:12 Pulse 101 H 02/16/17 08:12 Resp 18 02/16/17 08:12 BP 94/57 L 02/16/17 08:12 Pulse Ox 97 02/16/17 08:12 Assessment & Plan - Assessment and Plan (Free Text) Plan: I was present during evaluation and discussed with DR Layne re plans of care and mgt. Tavares William M.D.
[2017-02-14] MEDS ORDERED: Morphine 4 MG/ML VIAL IVP PRN (12:24)
[2017-02-14] MEDS: Morphine 100 MG in Sodium Chloride 0.9% 100 ML IVPB SCH (17:59)
--- NOTE | 2017-02-15 09:16 | CP.PCM.PN ---
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 Patient resting, with eyes open but unresponsive to stimuli. Appears to be NAD. Patient's dressing is clean, dry, and intact. Nursing denies any acute events overnight. Objective - Vital Signs/Intake and Output Vital Signs (last 24 hours): Temp Pulse Resp BP Pulse Ox 98.2 F 99 H 18 82/42 L 94 L 02/15/17 08:17 02/15/17 08:17 02/15/17 08:17 02/15/17 08:17 02/15/17 08:17 - Medications Medications: Current Medications Acetaminophen (Tylenol 650 Mg Supp) 650 mg [place] Q6 PRN PRN Reason: Fever >100.4 F Last Admin: 02/15/17 00:05 Dose: 650 mg Artificial Tears (Artificial Tears) 2 drop OU Q4 PRN PRN Reason: Dry eyes Last Admin: 02/13/17 21:45 Dose: 2 drop Bisacodyl (Dulcolax) 10 mg [place] DAILY PRN PRN Reason: Constipation Morphine Sulfate 100 mg/ (Sodium Chloride) 100 mls @ 1 mls/hr IVPB .Q24H [facility]; 1 MG/HR PRN Reason: Protocol Last Admin: 02/14/17 17:59 Dose: 1 mls/hr Lorazepam (Ativan) 1 mg IVP Q6 PRN PRN Reason: Restlessness Last Admin: 02/10/17 17:08 Dose: 1 mg Morphine Sulfate (Morphine) 2 mg IVP Q6 PRN PRN Reason: Pain, severe (8-10) Scopolamine (Transderm-Scop) 1 patch TD Q3D@1730 [facility] Last Admin: 02/13/17 17:32 Dose: 1 patch - Constitutional Appears: Non-toxic, No Acute Distress - Extremities Exam Additional comments: LLE focused physical exam: Vasc: DP pulse nonpalpable. PT pulse 1/4. CFT increased. TG cool to cool. Neuro: Protective sensation diminished. Derm: dry necrosis with hyperpigmented skin noted on the distal medial aspect of the forefoot at the surgical site, no active drainage noted, no purulence, no dehiscence noted, hyperpigmented skin with skin necrosis noted on the lateral aspect of the foot as well as superior to lateral mal, no malodor, no surrounding erythema, no clinical suspicion of active infection noted at this time Ortho: Hallux amputation. No pain on palpation noted to foot. 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 Navarrete Charts, labs, vitals reviewed = afebrile Left foot dressed with betadine soaked 4x4s, ABD, and maroi murillo. C/w offloading heel cushion. Continue hospice care Podiatry will continue to follow patient while in house.
[2017-02-15] MEDS: Morphine 100 MG in Sodium Chloride 0.9% 100 ML IVPB SCH (17:56)
[2017-02-16] MEDS ORDERED: Chlorhexidine Gluconate 1 APPL/PKT TP ONE (08:19)
--- NOTE | 2017-02-16 09:15 | CP.PCM.PN ---
Subjective - Date & Time of Evaluation Date of Evaluation: 02/16/17 Time of Evaluation: 09:09 - Subjective Subjective: Patient remains stable ON Hospice No fever. Objective - Vital Signs/Intake and Output Vital Signs (last 24 hours): Temp Pulse Resp BP Pulse Ox 100.8 F H 101 H 18 94/57 L 97 02/16/17 08:12 02/16/17 08:12 02/16/17 08:12 02/16/17 08:12 02/16/17 08:12 - Medications Medications: Current Medications Acetaminophen (Tylenol 650 Mg Supp) 650 mg KS Q6 PRN PRN Reason: Fever >100.4 F Last Admin: 02/16/17 08:21 Dose: 650 mg Artificial Tears (Artificial Tears) 2 drop OU Q4 PRN PRN Reason: Dry eyes Last Admin: 02/13/17 21:45 Dose: 2 drop Bisacodyl (Dulcolax) 10 mg KS DAILY PRN PRN Reason: Constipation Morphine Sulfate 100 mg/ (Sodium Chloride) 100 mls @ 1 mls/hr IVPB .Q24H CHARLENE; 1 MG/HR PRN Reason: Protocol Last Admin: 02/15/17 17:56 Dose: 1 mls/hr Lorazepam (Ativan) 1 mg IVP Q6 PRN PRN Reason: Restlessness Last Admin: 02/10/17 17:08 Dose: 1 mg Morphine Sulfate (Morphine) 2 mg IVP Q6 PRN PRN Reason: Pain, severe (8-10) Last Admin: 02/15/17 09:23 Dose: 2 mg Scopolamine (Transderm-Scop) 1 patch TD Q3D@1730 CHARLENE Last Admin: 02/13/17 17:32 Dose: 1 patch - Head Exam Head Exam: NORMAL INSPECTION - Eye Exam Eye Exam: Normal appearance - ENT Exam ENT Exam: Mucous Membranes Moist - Respiratory Exam Respiratory Exam: Clear to Ausculation Bilateral - Cardiovascular Exam Cardiovascular Exam: REGULAR RHYTHM - GI/Abdominal Exam GI & Abdominal Exam: Normal Bowel Sounds Assessment and Plan (1) Hospice care Status: Acute (2) CHF (congestive heart failure) Status: Acute - Assessment and Plan (Free Text) Plan: Cont hospice care cont fluids resp support
[2017-02-16] MEDS: Morphine 100 MG in Sodium Chloride 0.9% 100 ML IVPB SCH (17:36)
[2017-02-16] MEDS: Scopolamine 1.5 mg/24 hr Patch TD SCH (17:37)
[2017-02-16] MEDS: Artificial Tears Opht Soln OU PRN (21:52)
--- NOTE | 2017-02-17 07:49 | CP.PCM.PN ---
Subjective - Date & Time of Evaluation Date of Evaluation: 02/17/17 Time of Evaluation: 06:30 - Subjective Subjective: 86 year old male patient seen at bedside. Family member sitting at bedside with patient. 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 Patient resting, with eyes open but unresponsive to stimuli. Appears to be NAD. Patient's dressing is clean, dry, and intact. Family member reports fevers overnight the past few days. Objective - Vital Signs/Intake and Output Vital Signs (last 24 hours): Temp Pulse Resp BP Pulse Ox 100.0 F H 90 16 68/38 L 92 L 02/17/17 05:13 02/17/17 05:13 02/17/17 05:13 02/17/17 05:13 02/17/17 05:13 - Medications Medications: Current Medications Acetaminophen (Tylenol 650 Mg Supp) 650 mg MD Q6 PRN PRN Reason: Fever >100.4 F Last Admin: 02/16/17 08:21 Dose: 650 mg Artificial Tears (Artificial Tears) 2 drop OU Q4 PRN PRN Reason: Dry eyes Last Admin: 02/16/17 21:52 Dose: 2 drop Bisacodyl (Dulcolax) 10 mg MD DAILY PRN PRN Reason: Constipation Morphine Sulfate 100 mg/ (Sodium Chloride) 100 mls @ 1 mls/hr IVPB .Q24H CHARLENE; 1 MG/HR PRN Reason: Protocol Last Admin: 02/16/17 17:36 Dose: 1 mls/hr Lorazepam (Ativan) 1 mg IVP Q6 PRN PRN Reason: Restlessness Last Admin: 02/10/17 17:08 Dose: 1 mg Morphine Sulfate (Morphine) 2 mg IVP Q6 PRN PRN Reason: Pain, severe (8-10) Last Admin: 02/15/17 09:23 Dose: 2 mg Scopolamine (Transderm-Scop) 1 patch TD Q3D@1730 CHARLENE Last Admin: 02/16/17 17:37 Dose: 1 patch - Constitutional Appears: Well, Non-toxic, No Acute Distress - Extremities Exam Additional comments: LLE focused physical exam: Vasc: DP pulse nonpalpable. PT pulse 1/4. CFT increased. TG cool to cool. Neuro: Protective sensation diminished. Derm: dry necrosis with hyperpigmented skin noted on the distal medial aspect of the forefoot at the surgical site, no active drainage noted, no purulence, no dehiscence noted, hyperpigmented skin with skin necrosis noted on the lateral aspect of the foot as well as superior to lateral mal, no malodor, no surrounding erythema, no clinical suspicion of active infection noted at this time Ortho: Hallux amputation. 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 Navarrete Charts, labs, vitals reviewed = febrile at 100.0F Left foot dressed with betadine soaked 4x4s, ABD, and chidiluther gutierrezx. C/w offloading heel cushion b/l. Recommend BKA to LLE, however patient is on hospice care. Continue with pain management per medicine = Morphine. Podiatry will continue to follow patient while in house.
[2017-02-17] MEDS ORDERED: Chlorhexidine Gluconate 1 APPL/PKT TP ONE (08:18)
[2017-02-17 08:19] VITALS: BP 66/32; PULSE 87; RESP 18; TEMP 100.8; O2SAT 93
--- NOTE | 2017-02-17 11:03 | CP.PCM.PRO ---
Pronouncement of Note - Clinical Findings Physical Exam: No Response Verbal/Painful Stimuli, Absent Peripheral Pulses{ Carotid & Femoral}, Absent Heart & Breath Sounds, No Pupillary Light Reflex, Pupils Fixed & Dilated, Absence of Vital Signs - Pronouncement Time Time of Pronouncement of : 10:51 - Notifications Pronouncement Notifications: Family Notified, Atending Notified Wire Inspector Notified: Yes - Autopsy Autopsy Requested: No - [place] [id number]
== END 2017-02-17 10:51 | DRG 194 ==
LOC: UNDOADMIN 14:29 → H.TEL 14:29
PROVIDERS: ADMIT Family Medicine; ATTEND Family Medicine
DX: J18.9 Pneumonia, unspecified organism (principal); E11.52 Type 2 diabetes mellitus with diabetic peripheral angiopathy with gangrene; I11.0 Hypertensive heart disease with heart failure; I50.9 Heart failure, unspecified; Z51.5 Encounter for palliative care; E78.5 Hyperlipidemia, unspecified; E78.00 Pure hypercholesterolemia, unspecified; Z89.412 Acquired absence of left great toe; Z85.46 Personal history of malignant neoplasm of prostate; Z87.01 Personal history of pneumonia (recurrent)